=== PATIENT | female | born 1980 | race Caucasian/White ===

== ENCOUNTER 2023-03-13 14:04 | Outpatient (CLI) | payer BC, SELFPAY | END 2023-03-13 14:05 | disposition home or self-care (01) | PROVIDERS: PCP Family Medicine; Visit Provider Physician Assistant | DX: Z01.419 Encounter for gynecological examination (general) (routine) without abnormal findings (principal); R53.83 Other fatigue; Z13.6 Encounter for screening for cardiovascular disorders; Z13.1 Encounter for screening for diabetes mellitus; Z13.29 Encounter for screening for other suspected endocrine disorder | CPT/HCPCS: 80061; 82947; 84443 ==

== ENCOUNTER 2023-07-05 10:37 | Outpatient (CLI) | payer BC, SELFPAY ==
--- NOTE | 2023-07-05 10:45 | CRLHL7_ITS ---
For Patients: As a result of the Century Cures Act, medical imaging exams and procedure reports are released immediately into your electronic medical record. You may view this report before your referring provider. If you have questions, please contact your health care provider. BILATERAL DIGITAL SCREENING MAMMOGRAM WITH TOMOSYNTHESIS AND COMPUTER-AIDED DETECTION, 07/05/2023 INDICATION: 43-year-old asymptomatic female. Screening mammogram. No personal or family history of breast cancer or biopsies documented. TECHNIQUE: BILATERAL mammograms. CC and MLO views were obtained. This digital study was evaluated with assistance of computer-aided detection. Digital breast tomosynthesis utilized in interpretation. Comparison September 20, 2021. FINDINGS: The breasts are heterogeneously dense, which may obscure small masses. Within the inferior RIGHT breast between the 6 and 7 o???clock position 6.5 cm from the nipple is a cluster of microcalcifications potentially associated with a small soft tissue density. Spot compression magnification views are recommended in the CC and true ML projection as a 1st step. Ultrasound may be helpful. Benign punctate calcification LEFT breast is unchanged. IMPRESSION: 1. Nothing for malignancy on the LEFT. No change on the LEFT. 2. Cluster of microcalcifications potentially associated with a small density inferior RIGHT breast at approximately the 7 o???clock position 6.5 cm from the nipple for which additional imaging and possible ultrasound are recommended. A lay language report of this examination will be provided to the patient. BI-RADS Category 0: Incomplete: Need Additional Imaging Evaluation and/or Prior Mammograms for Comparison Dictated by: Wiliam Espana MD @07/06/2023 10:13:25 AM JR/Dictated by: Wiliam Espana MD @ 07/06/2023 10:13:00 AM (Electronically Signed)
== END 2023-07-05 10:38 | disposition home or self-care (01) ==
LOC: MAMMO 10:38
PROVIDERS: PCP Family Medicine; Visit Provider Physician Assistant
DX: Z12.31 Encounter for screening mammogram for malignant neoplasm of breast (principal); R92.0 Mammographic microcalcification found on diagnostic imaging of breast
CPT/HCPCS: 77063; 77067

== ENCOUNTER 2023-07-18 09:36 | Outpatient (CLI) | payer BC, SELFPAY ==
--- NOTE | 2023-07-18 09:45 | CRLHL7_ITS ---
For Patients: As a result of the Century Cures Act, medical imaging exams and procedure reports are released immediately into your electronic medical record. You may view this report before your referring provider. If you have questions, please contact your health care provider. RIGHT DIAGNOSTIC DIGITAL MAMMOGRAM WITH COMPUTER-AIDED DETECTION, 07/18/2023 CLINICAL HISTORY: RIGHT breast calcifications. COMPARISON: 07/05/2023, 09/20/2021 TECHNIQUE: Digital RIGHT mammogram in three projections with computer-aided detection. BREAST COMPOSITION: The breast is heterogeneously dense, which may obscure small masses. FINDINGS: Spot magnification CC/ML RIGHT breast mammogram submitted along with an open ML view of the RIGHT breast. Clustered punctate microcalcifications are present within the lower outer quadrant, 7 o`clock, 6 cm from the nipple. These may represent calcifications associated with a degenerating fibroadenoma, although they are indeterminate. No layering is present. IMPRESSION: Clustered microcalcifications in the RIGHT breast at 7 o`clock, 6 cm from the nipple. RECOMMENDATIONS: Stereotactic biopsy. Results and recommendations were discussed with the patient. A lay language report of this examination will be provided to the patient. BI-RADS Category 4. Suspicious. Dictated by Mike Frias MD @ 07/18/2023 11:10:03 AM [email or web address] RD/Dictated by: Mike Frias MD @ 07/18/2023 11:10:00 AM (Electronically Signed)
== END 2023-07-18 09:37 | disposition home or self-care (01) ==
LOC: MAMMO 09:36
PROVIDERS: PCP Family Medicine; Visit Provider Family Medicine
DX: R92.8 Other abnormal and inconclusive findings on diagnostic imaging of breast (principal); R92.0 Mammographic microcalcification found on diagnostic imaging of breast
CPT/HCPCS: 77065

== ENCOUNTER 2023-09-14 09:51 | Day surgery (SDC) | payer BC, SELFPAY ==
[2023-09-14 10:12] VITALS: BMI 25.2
[2023-09-14 10:13] LABS: Ur HCG Qualitative* Negative (Negative)
[2023-09-14 10:16] VITALS: BP 115/64; PULSE 77; RESP 16; TEMP 36.7; O2SAT 100
[2023-09-14] MEDS: LACTATED RINGERS 1000 ML 1,000 ML 100 ML IV (10:25)
[2023-09-14] MEDS: SODIUM CHLORIDE 0.9 % (FLUSH) 10 ML SYRINGE IVF (10:26)
--- NOTE | 2023-09-14 10:54 | W.PM.H&PU ---
History & Physical Update History & Physical Update H&P Reviewed and patient assessed: No changes noted
--- NOTE | 2023-09-14 10:55 | P.GSOP_ITS ---
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 Core biopsy showed this to be atypical ductal hyperplasia as well as atypical lobular hyperplasia. Given the presence of atypical ductal hyperplasia and risk of ma lignancy, excisional biopsy was recommended. After discussion, she agreed to proceed. Procedure Description: After discussing the risks and benefits of the procedure, the patient signed informed consent.? The operative site was marked and the patient was brought to the operating room and placed on the operating table in supine position.? Care was taken to pad the patient's pressure points.?? The patient was then given today by anesthesia.?? The operative site was then prepped and draped in the usual sterile fashion.? A time-out was then performed. Local anesthetic was injected into the skin and subcutaneous tissue in the lower right breast. A periareolar skin incision was created at the inferior aspect. A subcutaneous plane was then created using cautery until the localizing wire was encountered. This was grasped with an Allis clamp and pulled into the incision. I then carefully dissected the breast tissue around the wire using cautery. Once this was done, this was inked for margins. It was then sent to mammography. This confirmed the mass and the clip were present in the specimen. This was then sent to pathology for permanent section. The wound was examined. Hemostasis appeared excellent. The wound was then closed with 3-0 Vicryl dermal and 4-0 Monocryl running subcuticular suture. Sterile dressings were then applied. ? The patient was then woken and transported to the recovery area in stable condition. ? The patient tolerated the procedure well. Findings: Right breast mass excised with clip noted in the specimen Anesthesia: MAC Surgeon: Milli Conde MD Estimated blood loss (mL): 5 Additional Specimen Information: Right breast mass excisional biopsy Condition: stable Disposition: same day
--- NOTE | 2023-09-14 11:15 | CRLHL7_ITS ---
For Patients: As a result of the Cures Act, medical imaging exams and procedure reports are released immediately into your electronic medical record. You may view this report before your referring provider. If you have questions, please contact your health care provider. BREAST WIRE LOCALIZATION USING ULTRASOUND GUIDANCE CLINICAL HISTORY: Benign mammary dysplasia LATERALITY: Right breast LESION: Biopsied microcalcifications right breast, 6 o`clock 6 cm from the nipple. LOCALIZATION WIRE: [place] hookwire. TECHNIQUE: The localization wire was placed using real-time ultrasound guidance with image documentation. Cranial-caudal and medial-lateral digital mammograms were obtained after localization wire placement. CONSENT and TIME OUT: The procedure, risks, and alternatives were explained to the patient and a consent was signed. [place] Protocol was followed including pre-procedure verification that relevant information/documentation was available, reviewed and properly matched to the patient; consent accurate and complete; and equipment and supplies available. Time Out was conducted just prior to starting procedure to verify the four required elements: patient identity, correct side/site marked (if applicable), procedure, relevant images/results properly labeled and displayed (if applicable). PROCEDURE: The skin was prepped with ChloraPrep and 8 cc of 1% lidocaine was injected for local anesthesia. The localization wire was placed within or near the targeted breast lesion using ultrasound guidance. The patient tolerated the procedure well. PROXIMITY OF WIRE TO LESION: Wire is located immediately adjacent to the clip. IMPRESSION: Successful breast wire localization. ACR not applicable Dictated by Mike Frias MD @ 09/14/2023 12:29:31 PM (Electronically Signed)
--- NOTE | 2023-09-14 12:00 | CRLHL7_ITS ---
For Patients: As a result of the Century Cures Act, medical imaging exams and procedure reports are released immediately into your electronic medical record. You may view this report before your referring provider. If you have questions, please contact your health care provider. CLINICAL HISTORY: Right lumpectomy COMPARISON: 08/01/2023 FINDINGS: Two views of the right breast specimen submitted. Biopsy clip noted along with residual calcifications and localization wire. IMPRESSION: Specimen contains the residual calcifications, localization wire and biopsy clip. ACR not applicable. Dictated by Mike Frias MD @ 09/14/2023 1:08:05 PM (Electronically Signed)
[2023-09-14] MEDS: CEFAZOLIN 1 GM inj IVP (12:16)
[2023-09-14] MEDS: LIDOCAINE 1% MDV 20 ML INJECTION (12:53)
[2023-09-14] MEDS: BUPIVACAINE 0.25% 30 ML INJECTION (12:53)
--- NOTE | 2023-09-14 13:08 | W.ANESCHARGE ---
Anesthesia Charges Start Date/Time Anesthesia Start Date: 09/14/23 Anesthesia Start Time: 12:03 Stop Date/Time Anesthesia Stop Date: 09/14/23 Anesthesia Stop Time: 13:09
[2023-09-14 13:10] VITALS: BP 97/61; PULSE 63; RESP 16; TEMP 36.3; O2SAT 97
[2023-09-14 13:25] VITALS: BP 94/61; PULSE 58; RESP 16; O2SAT 100
[2023-09-14 13:40] VITALS: BP 102/67; PULSE 64; RESP 16; O2SAT 100
== END 2023-09-14 14:01 | disposition home or self-care (01) ==
PROVIDERS: PCP Family Medicine; Visit Provider Surgery
PROC: (CPT 19125; principal; 2023-09-14 12:00)
DX: N60.91 Unspecified benign mammary dysplasia of right breast (principal); D05.81 Other specified type of carcinoma in situ of right breast
CPT/HCPCS: 19125; 00400; 19285; 77065; 81025; C1769; J0665; J0690; J1100; J1200; J1885; J2405; J2704; J3010; J7120

== ENCOUNTER 2023-10-10 08:48 | Outpatient (CLI) | payer BC, SELFPAY ==
--- OUTSIDE RECORDS SUMMARY | 2023-10-10 08:52 | XMS_ITS | Encounter Summary ---
Author Name Unknown Organization [facility] Address [address] [place] [address] Care Team Providers Care Rn Burn Name Role Phone Unavailable Primary Care Provider Unavailabl e Reason for Visit * Appointment Request (Routine) - Closed Specialty Diagnoses / Procedures Referred By Anton cesar Referred To Contact Radiation Oncology Diagnoses Cancer Breast Ductal In Situ Right Milli Conde M.D. [address] [place] [address] Referral ID Status Reason Start Date Expiration Date Visits Re quested Visits Authorized [id number] Closed 09/19/2023 09/18/2024 1 1 Encounter Details Date Type Department Care Team (Latest Contact Info) Description 09/27/2023 9:43 AM [facility] - 09/27/2023 12:34 PM [facility] Hospital Encounter Department of Radiation Oncology in [place], [place] [address] [place] [address] Radha Elena M.D. [address] [place] [address] 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) Social History Tobacco Use Types Packs/Day Years Used Date Smoking Tobacco: Never Smokeless Tobacco: Never Tobacco Cessation:Counseling Given: Not Answered Alcohol Use Standard Drinks/Week Comments Not Currently 0 (1 standard drink = 0.6 oz pur e alcohol) Nutrition Answer Date Recorded Nutrition: EVOO Fat Source Unknown 11/17 Nutrition: Servings of Fruits/Vegetables per Day Not on file 11/17/2020 Dental Answer Date Recorded Dental: Regular Dentist Unknown 11/18/19 21 Sex and Gender Information Value Date Recorded Sex Assigned at Not on file Gender Identity Not on file Sexual Orientation Not on file documented as of this encounter Last Filed Vital Signs Vital Sign Reading Time Taken Comments Blood Pressure 124/65 09/27/2023 9:53 AM [facility] Pulse 81 09/27/2023 9:53 AM [facility] Temperature 36.9 ??C (98.4 ??F) 09/27/2023 9:53 AM CS T Respiratory Rate - - Oxygen Saturation - - Inhaled Oxygen Concentration - - Weight 72.6 kg (160 lb 0.9 oz) 09/27/2023 9:53 A M [facility] Height - - Body Mass Index - - documented in this encounter Discharge Instructions * Patient Instructions* Evi Mott P.A.-C., M.S. - 09/27/2023 10:00 AM [facility] 52 [facility] documented in this encounter Consult Notes * Evi Mott P.A.-C., M.S. - 09/27/2023 10:00 AM CST SUBJECTIVE REQUESTING PROVIDER Milli Conde M.D. CHIEF COMPLAINT/REASON FOR CONSULT 1. Cancer Breast Ductal In Situ Right SUPERVISED BY: Radha Elena M.D. HISTORY OF PRESENT ILLNESS Ms. 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 Her oncologic history is as follows: Oncology History Cancer Breast Ductal In Situ Right 07/05/2023 Critical Imaging Screening mammogram demonstrated a cluster of microcalcifications with a small density in the inferior right breast at approximately 7 o'clock, 6.5 cm from the nipple, recommended additional imaging.No concerning findings in the left breast. 07/18/2023 Critical Imaging Focused right breast diagnostic mammogram redemonstrated clustered microcalcifications in the rightbreast at 7 o'clock, 6 cm from the nipple. 08/01/2023 Biopsy/Pathology Final Diagnosis A) RIGHT BREAST, 7:00, 6 CM FROM NIPPLE, STEREOTACTIC-GUIDED CORE BIOPSY: 1. Focal atypical ductal hyperplasia (ADH) recommend excision (see comment) 2. Atypical lobular hyperplasia (ALH) 3. Calcifications present in fibrocystic change 4. Negative for invasive malignancy 08/01/2023 Critical Imaging Targeted ultrasound was performed of the LEFT breast at 3 o'clock, 3 cm from the nipple. There was an underlying simple cyst measuring 0.9 x 0.4 x 0.7 cm. This correlated to the mammogram and is benign. 09/14/2023 Surgery and Procedures Right breast excisional biopsy performed by Dr. Milli Conde. A) RIGHT BREAST, ORIENTED PARTIAL MASTECTOMY WITH MARGIN ASSESSMENT: 1. Ductal carcinoma in situ (DCIS), nuclear grade 1, cribriform and micropapillary types a. Size: at least 3 mm b. Margins: All margins negative for DCIS, < 1 mm to inferior (nearest) margin, all other margins > 5 mm c. Core biopsy site associated with DCIS 2. Background breast tissue with atypical lobular hyperplasia (ALH) and fibrocystic changes 3. Negative for invasive carcinoma 4. See comment and synoptic report for additional details 5. Breast Ancillary Testing: Performed on A6 a. Estrogen receptor: Positive (91-100%, strong staining by manual morphometry) SYNOPTIC REPORTING SPECIMEN Procedure: Excision (less than total mastectomy) Specimen Laterality: Right TUMOR Tumor Site: Clock position : 7 o'clock Tumor Site: Distance from nipple (Centimeters): 6 cm Histologic Type: Ductal carcinoma in situ Size (Extent) of DCIS: Estimated size (extent) of DCIS is at least (Millimeters): 3 mm Architectural Patterns: Cribriform Architectural Patterns: Micropapillary Nuclear Grade: Grade I (low) Necrosis: Not identified Microcalcifications: Present in DCIS MARGINS Margin Status: All margins negative for DCIS Distance from DCIS to Closest Margin: Less than: 1 mm Closest Margin(s) to DCIS: Inferior REGIONAL LYMPH NODES Regional Lymph Node Status: Not applicable (no regional lymph nodes submitted or found) PATHOLOGIC STAGE CLASSIFICATION (pTNM, AJCC 8th Edition) pT Category: pTis (DCIS) pN Category: pN not assigned (no nodes submitted or found) Test(s) Performed: Estrogen Receptor (ER) Status: Positive (greater than 10% of cells demonstrate nuclear positivity) Percentage of Cells with Nuclear Positivity: 91-100% Average Intensity of Staining: Strong 09/19/2023 Other Follow up with Dr. Conde to review path results. Dr. Conde discussed additional surgery for a widermargin of at least 2 mm, inferior margin was <1 mm, but not absolutely necessary if patient wanted to proceed with radiation treatment. Patient was interested in hearing more about radiation, referral sent. Dr. Conde also discussed obtaining a breast MRI as patient has strong family history of breast cancer in mom and maternal grandmother, has dense breasts, and is young so want to rule out additional lesions. Radiology recommended waiting 4 weeks post surgery. Plan to complete this prior to radiationtreatment. 10/02/2023 Other Scheduled to meet with Dr. Harry in Medical Oncology. 10/12/2023 Critical Imaging Tentative MRI breast scheduled. INTERVAL HISTORY: The patient was seen and examined today with Dr. Elena. The patient reports doing well overall. She reports stable energy compared to pre-surgery. She reports occasional zingers but denies pain or swelling. She denies any skin incisional healing concerns. She denies shortness of breath or cough. The patient denies a history of prior radiation therapy,connective tissue disorders, or inflammatory bowel disease. Her ECOG performance status is 0. REVIEW OF SYSTEMS Review of systems was negative except as documented above. PATIENT REPORTED SYMPTOM SCREEN: FATIGUE (Scale: 0 = no fatigue; 10 = worst fatigue you can imagine): 0 PAIN (Scale: 0 = no pain; 10 = worst pain you can imagine): 0 OVERALL QUALITY OF LIFE (Scale: 0 = as bad as can be; 10 = as good as can be): 10 MEDICAL HISTORY Past Medical History: Diagnosis Date Atypical Lobular Hyperplasia Breast Cancer Breast Ductal In Situ Right Cancer Breast Family History SURGICAL HISTORY Past Surgical History: Procedure Laterality Date BREAST EXCISIONAL BIOPSY Right 09/14/2023 FAMILY HISTORY Family History Problem Relation Age of Onset Breast cancer Mother 69 Lymphoma Father 70 Breast cancer Maternal Grandmother 52 Prostate cancer Paternal Grandfather Patient is unsure about this. Breast cancer Aunt Aunt was adopted. 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 OBJECTIVE BP 124/65 (BP Location: Right arm, Patient Position: Sitting, Cuff Size: Regular) Pulse 81 Temp36.9 ??C (Temporal) Wt 72.6 kg PHYSICAL EXAMINATION General: Alert and oriented, in no apparent distress. The patient is here today with her , Bronson. Heart: Regular rate and rhythm. Lungs: Clear to auscultation bilaterally. ASSESSMENT / PLAN #1 Stage 0 (pTis (DCIS), cN0, cM0, G1, ER+) ductal carcinoma in situ of the right breast s/p right breast excisional biopsy on September 14, 2023 with a close (<1 mm) inferior margin I had a discussion with the patient and her regarding her diagnosis of ductal carcinoma in situ of the right breast including information regarding her staging, grade, and hormone receptors. We reviewed her oncologic history as detailed above. Dr. Conde has offered re-excision for additional margin as a treatment option for the patient and has recommended proceeding with a breast MRI for further evaluation, which is scheduled later this month. We also had a detailed discussion regarding the risks, benefits, and alternatives of radiotherapy in this setting. Dr. Elena offered radiation therapy to the right breast in 5 or 15 fractions. We discussed the possible addition of a 4 fraction boost to the lumpectomy cavity for a total of 9 or 19 f ractions, especially if she decides to not proceed with re-excision. I discussed the logistics as well as the acute and chronic side effects of radiotherapy. The acute side effects are common and include, but are not limited to, fatigue, radiation dermatitis, breast swelling and discomfort. Long-term side effects include, but are not limited to, skin changes and texture changes of the breast, possible breast asymmetry, pulmonary scarring, radiation pneumonitis, increased risk of rib fracture with significant trauma, and a very small risk of secondary malignancy.The use of mometasone cream and a moisturizing lotion applied to the skin within the treatment field during treatment was discussed. The patient was provided with a written summary of recommendations. Her questions were answered to her verbalized satisfaction. The patient is scheduled for a Medical Oncology consultation with Dr. Harry on October 02, 2023 and a breast MRI scan on October 12, 2023. Dr. Elena also met with the patient today, please see her attestation for details. After their discussion, it was agreed that the patient would contact us after her upcoming appointment to let us know her decision on proceeding with re-excision or radiation therapy at this time. The patient was provided with our contact information. She will contact us with questions or concerns. She verbally expressed her understanding of the plan. EDUCATION: Ready to learn, no apparent learning barriers were identified; learning preferences include listening. Explained diagnosis and treatment plan; patient expressed understanding of the content. PRIMARY PROVIDER Stacey Marcelo P.A.-C. I personally spent 52 minutes in care of the patient today. Time includes both non face to face andface to face patient care. Signed by: Evi Mott P.A.-C., M.S. 09/27/2023 11:40 AM [facility] [address] [place] [address] [facility] Associated attestation - Radha Elena M.D. - 09/27/2023 12:05 PM [facility] RADIATION ONCOLOGY CONSULT I saw and evaluated the patient and participated in the royal portions of the service. I reviewed thedocumentation of Ms. Evi Mott PA-C, and agree with the findings and plan. Please see Ms. Mott's detailed note for the patient's initial presentation and work-up. Briefly, Ms. Ian Cantu is a very pleasant 43 year old female with a resected right breast DCIS who presents now to discuss adjuvant radiation therapy options. I have reviewed her imaging, operative and pathology reports. In summary, she underwent an excision of a grade 1 DCIS that was 3mm in size with her inferior margin < 1mm. Her tumor was ER positive. She does have an MRI scheduled for 10/12/[address] Harry on 10/02/23. She presents now to learn about radiation therapy. On exam, she appears well. I did not perform a breast/lymph node exam at this visit, but will the next time that I see her. We discussed the findings above and below in this note with the patient and her . We discussed her treatment alternatives including more surgery to obtain a wider margin vs adjuvant radiation now for her negative, but less than 1 mm margin. She does not want mastectomy. One could consider ultra- hypofractionated (5 treatments) radiation therapy, but given her young age, I would lean towardsconventionally hypofractionated treatments (15 fractions). If she has no additional surgery, then Iwould favor a boost. She may still need a boost following surgery, but this would be determined later. She does have an upcoming MRI and will return to see Dr. Conde before making final decisions. We discussed calling me back next week after she sees Dr. Harry and possibly setting up a simulation on October 22 or . She will be away October 15 through October 19. We discussed the rationale, risks, side effects and goals of radiation therapy. We discussed the rationale, risks, side effects and adjuvant goals of radiation therapy. We discussed the acute as wellas intermediate manager risks, including, but not limited to fatigue, skin erythema/desquamation, fibrosis of the breast, small risks of bone fracture, radiation pneumonitis, cardiac disease, and secondary malignancies. My thanks to Piero Hewitt, and Stacey Marcelo PA-C for the opportunity to participate in this patient's care. EDUCATION Ready to learn, no apparent learning barriers were identified; learning preferences include listening. Explained diagnosis and treatment plan; patient expressed understanding of the content. CONSENT Discussed the risks, benefits, alternatives, and the necessity of other members of the healthcare team participating in the procedure. All questions answered and consent given. DIAGNOSIS #1 Stage 0 (pTis (DCIS), cN0, cM0, G1, ER+) ductal carcinoma in situ of the right breast s/p right breast excisional biopsy on September 14, 2023 with a close (<1 mm) inferior margin Signed by: Radha Elena M.D. 09/27/23 documented in this encounter Plan of Treatment Upcoming Encounters Date Type Department Care Team (Late st Contact Info) Description 10/22/2023 9:00 AM [facility] Appointment Department of Radiation Oncology in [place], [place] [address] [place] [address] Radha Elena M.D. [address] [place] [address] 10/22/2023 9:30 AM [facility] Appointment Department of Radiation Oncology in [place], [place] [address] [place] [address] Radha Elena M.D. [address] [place] [address] documented as of this encounter Visit Diagnoses Diagnosis Cancer Breast Ductal In Situ Right- Primary documented in this encounter
--- OUTSIDE RECORDS SUMMARY | 2023-10-10 08:52 | XMS_ITS | Referral Summary ---
Author Name Unknown Organization [facility] Address [address] [place] [address] Care Team Providers Care Project Engineer Name Role Phone Unavailable Primary Care Provider Unavailabl e Source Comments Patient records contain information from all sites at [facility]. For routine questions regarding patient records, call [phone] during business hours, M-F 8:00 AM - 5:00 PM Central Time. Record requests for emergency care only can be directed to [phone] at any time.[facility] Encounters Date Type Department Care Team Description 10/05/2023 Orders Only Department of Radiation Oncology in [address] [address] Radha Elena M.D. 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 Cancer Staging:Pathologic stage from 09/14/2023:Stage 0(pTis (DCIS), cN0, cM0, G1, ER+, [place]: Unknown, HER2: Unknown) - Unsigned Immunizations Name Administration Dates Next Due DTaP ([employer], [employer]) 04/10/2009 Social History Tobacco Use Types Packs/Day Years [...] on file Sexual Orientation Not on file Last Filed Vital Signs Vital Sign Reading Time Taken Comments Blood Pressure 124/65 09/27/2023 9:53 AM [facility] Pulse 81 09/27/2023 9:53 AM [facility] Temperature 36.9 ??C (98.4 ??F) 09/27/2023 9:53 AM CS T Respiratory Rate - - Oxygen Saturation - - Inhaled Oxygen Concentration - - Weight 72.6 kg (160 lb 0.9 oz) 09/27/2023 9:53 A M [facility] Height - - Body Mass Index - - Plan of Treatment Upcoming Encounters Date Type Department Care Team (Late st Contact Info) Description 10/22/2023 9:00 AM [facility] Appointment Department of Radiation Oncology in [address] [address] Radha Elena M.D. [address] [place] [address] 10/22/2023 9:30 AM [facility] Appointment Department of Radiation Oncology in [address] [address] Radha Elena M.D. [address] [place] [phone] Procedures Procedure Name Priority Date/Time Associated Diagnosis Comments OUTSIDE MG MAMMOGRAM Routine 09/14/2023 12:55 PM [facility] OUTSIDE MG MAMMOGRAM Routine 09/14/2023 11:15 AM [facility] OUTSIDE US BREAST Routine 09/14/2023 10: 35 AM [facility] OUTSIDE US BREAST Routine 08/01/2023 5:0 0 PM [facility] OUTSIDE MG MAMMOGRAM Routine 08/01/2023 3:10 PM [facility] OUTSIDE MG MAMMOGRAM Routine 08/01/2023 2:20 PM [facility]TER OUTSIDE MG MAMMOGRAM Routine 07/18/2023 9:50 AM CDT from Last 3 Months Results * MM surgical specimen RT-Outside Mammogram (09/14/2023 12:55 PM [facility]TER) Only the most recent of5 resultswithin the time period is included. Narrative [facility] - 09/19/2023 2:27 PM [facility] This order has been created and auto-finalized to support the import of outside images. If available, original interpretation can be found on the Media Tab in Chart Review, in Document Viewer, or as an image in QREADS. If a re-interpretation or overread is required please follow defined workflow. ?? Provider Not In System IMG BI PROCEDURES Performing Organization Address [facility] Co de Phone Number [facility] NA * US BREAST NEEDLE LOC RT-Outside US Breast (09/14/2023 10:35 AM [facility]TER) Only the most recent of2 resultswithin the time period is included. Narrative [facility] - 09/19/2023 2:27 PM [facility]TER This order has been created and auto-finalized to support the import of outside images. If available, original interpretation can be found on the Media Tab in Chart Review, in Document Viewer, or as an image in QREADS. If a re-interpretation or overread is required please follow defined workflow. ?? Provider Not In System IMG BI PROCEDURES Performing Organization Address [facility] Co de Phone Number [facility] NA from Last 3 Months
--- OUTSIDE RECORDS SUMMARY | 2023-10-10 08:52 | XMS_ITS | Clinical Summary ---
Author Name Unknown Organization [facility] Address [place], [place] [address] Care Team Providers Care Headrig Sawyer Name Role Phone Pcp, No Primary Care Provider Unavailabl e Allergies No known active allergies Medications No known medications Active Problems No known active problems Encounters Date Type Department Care Team Description 10/09/2023 11:10 AM SEROLOGY TECHNICIAN Orders Only [address] [phone] Lab, [facility] 10/09/2023 Orders Only [facility] [address] [place] [id number] Marya Solomon MS, CGC <No scans attached> 10/09/2023 Travel 10/03/2023 11:00 AM SEROLOGY TECHNICIAN Phone Office Visit [facility] [address] [place] [id number] Marya Solomon, MS, CGC Counseling (Cancer genetic counseling) 10/03/2023 Orders Only [facility] [address], [place] [address] Marya Solomon, MS, CGC Counseling (Cancer genetics test order) 10/03/2023 Travel 09/14/2023 Lab Requisition [facility] [phone] Milli Conde MD 09/14/2023 Lab Requisition [facility] [phone] Milli Conde MD 09/07/2023 Transcribe Orders [facility] [address], [place] [address] Jyoti Yusuf MD 08/01/2023 1:43 PM SEROLOGY TECHNICIAN - 08/01/2023 11:59 PM SEROLOGY TECHNICIAN Hospital Encounter [facility] [address] [place] [address] Stacey Marcelo PA-C Abnormal finding on breast imaging; Mammographic microcalcification 08/01/2023 Travel 07/20/2023 Telephone [facility] [address] [place] [address] Staff, Other Clinical from Last 3 Months Social History Tobacco Use Types Packs/Day Years Used Date Smoking Tobacco: Never Assessed Sex and Gender Information Value Date Recorded Sex Assigned at Not on file Gender Identity Not on file Sexual Orientation Not on file Obstetrics History Last Filed Vital Signs Vital Sign Reading Time Taken Comments Blood Pressure 110/64 11/20/2015 1:10 PM SEROLOGY TECHNICIAN Pulse 60 11/20/2015 1:10 PM SEROLOGY TECHNICIAN Temperature 36.9 ??C (98.4 ??F) 11/20/2015 1:10 PM CS T Respiratory Rate - - Oxygen Saturation - - Inhaled Oxygen Concentration - - Weight 85.3 kg (188 lb) 11/20/2015 1:10 PM SEROLOGY TECHNICIAN Height - - Body Mass Index - - Plan of Treatment Health Maintenance Due Date Last Done Comments COVID-19 vaccine series (#1) 1981 Tdap 1992 Depression screening for age 12+ 1993 HIV for age 15-65 1996 BMI (ht and wt on same day) for age 18+ 1999 Hepatitis C screening for age 18-79 1999 Tetanus booster 2001 Influenza for age 9-49 05/18/2023 Pap test for age 21-65 03/13/2026 3, 03/13/2023, 04/05/2016, Additional history exists Pneumococcal series for age 6-64 Aged Out No longer eligible based on patient's age to complete this topic Procedures Procedure Name Priority Date/Time Associated Diagnosis Comments LAB TRACKING EVENT Routine 09/14/2023 12 :44 PM SEROLOGY TECHNICIAN PATH TISSUE EXAM Routine 09/14/2023 12:4 4 PM SEROLOGY TECHNICIAN XR MAMMO POST CLIP PLCMT RT [facility] 08/01/2023 2:42 PM SEROLOGY TECHNICIAN Mammographic microcalcification XR BIOPSY BREAST NEEDLE W HANK W STEREO GUIDE RT [facility] 08/01/2023 2:40 PM SEROLOGY TECHNICIAN Mammographic microcalcification US BREAST UNILATERAL LEFT LIMITED [facility] 08/01/2023 2:27 PM SEROLOGY TECHNICIAN Abnormal finding on breast imaging PATH TISSUE EXAM Today 08/01/2023 2:05 PM SEROLOGY TECHNICIAN from Last 3 Months Results * LAB TRACKING EVENT (09/14/2023 12:44 PM SEROLOGY TECHNICIAN) Other (Other) Client Collect / Unknown 09/14/2023 12:44 PM SEROLOGY TECHNICIAN 09/14/2023 6:07 PM SEROLOGY TECHNICIAN Milli Conde MD LAB BILL ONLY [facility] [address] [place] [address], * PATH TISSUE EXAM (09/14/2023 12:44 PM SEROLOGY TECHNICIAN) Only the most recent of2 resultswithin the time period is included. Case Report Pathology Report ?Case: [id number] ? Authorizing Provider: ??Milli Conde MD ??Collected: ? 09/14/2023 1244 ? Ordering Location: ? [facility] ?Received: ?09/14/2023 1835 ? Pathologist: ? Oleksandr Obrien MD ? Specimen: ?Right Breast ? 09/19/2023 11:24 AM [facility] [employer]- ENTRAL LABORATORY Amendment 09/19/2023 - Amendment issued to incorporate ancillary studies. 09/19/2023 11:24 AM [facility] [employer] [facility]- ENTRMA LABORATORY Final Diagnosis A) RIGHT BREAST, ORIENTED PARTIAL MASTECTOMY WITH MARGIN ASSESSMENT: 1. Ductal carcinoma in situ (DCIS), nuclear grade 1, cribriform and micropapillary types ?a. Size: at least 3 mm ?b. Margins: All margins negative for DCIS, < 1 mm to inferior (nearest) margin, all other margins > 5 mm ?c. Core biopsy site associated with DCIS 2. Background breast tissue with atypical lobular hyperplasia (ALH) and fibrocystic changes 3. Negative for invasive carcinoma 4. See comment and synoptic report for additional details 5. Breast Ancillary Testing: Performed on A6 ?a. Estrogen receptor: Positive (91-100%, strong staining by manual morphometry) 09/19/2023 11:24 AM [facility] [employer] [facility]- ENTRAL LABORATORY Amendment electronically signed by Tiffanie Sterling MD on 09/19/2023 at 11:[address] Estelle Todd has reviewed passenger service representative slides (A5/A6/A8) and concurs with DCIS. 09/19/2023 11:24 AM [facility] [facility] ENTRAL LABORATORY Clinical Information Patient with recent prior right breast core biopsy showing both atypical ductal hyperplasia (ADH) and atypical lobular hyperplasia (ALH). 09/19/2023 11:24 AM [facility] [employer] [facility] ENTRAL LABORATORY Gross Description A) Received in formalin, unsliced, labeled with the patient's name and right breast biopsy, is a 9 gram,??4.0 (SI) x 2.7 (ML) x centimeters 1.6 (AP)??cm wirelocalized breast lumpectomy specimen.??The wire is identified within the specimen.?The specimen is inked by the surgical staff in the OR as follows: Anterior--[place] Posterior--Black Superior--Blue Inferior--Red Medial--Green Lateral--Yellow The specimen is serially sectioned from superior to inferior into 12 submitted passenger service representative slices revealing a??1.3 (ML) x 1.4 (SI) x 0.5 (AP)??cm focally hemorrhagic, fibrotic lesion within slice(s) 5-8 with the following characteristics: Biopsy site change: Present in slices 4-7 Biopsy clip: Is not grossly identified, however gel is present Closest margin: Anterior and inferior Distance to margins: Anterior: Grossly abuts Posterior: 0.5 cm Inferior: Grossly abuts Superior: 2.0 cm Medial: 0.7 cm Lateral: 0.6 cm The remaining cut surfaces consist of approximately 70% adipose tissue and 30% fibrous tissue. No other lesions are identified. The specimen is submitted entirely 1. ??Slice 1 (perpendicular sections of superior margin) 2. ??Slice 2 3. ??Slice 3 4. ??Slice 4 5. ??Slice 5 6. ??Slice 6 7. ??Slice 7 8. ??Slice 8 9. ??Slice 9 (perpendicular sections of inferior margin) A specimen image has been uploaded. The specimen was removed from the patient at 1244 and placed unsliced in 10% neutral buffered formalin at 1257 on 09/14/2023. The specimen sat in formalin unsliced for 7 hours. (Please note: Cold ischemic time is greater than 60 minutes).?? The sliced specimen was fixed in formalin for a minimum of 6 hours and not longer than 72 hours. ?? [facility] 09/14/2023 ? 09/19/2023 11:24 AM [facility] ENTRAL LABORATORY Microscopic Description The final diagnosis is based on microscopic examination of appropriate sections of all specimens. A) The cold ischemic time in this case is greater than 60 minutes, which could potentially affect ancillary testing results. Breast ancillary testing performed on this case showed the tumor to be strongly ER positive with internal controls staining appropriately; thus there appears to be no definitive impact of the extended cold ischemic time on the patient's results. 09/19/2023 11:24 AM [facility] ENTRAL LABORATORY SYNOPTIC REPORTING DCIS OF THE BREAST: Resection DCIS OF THE BREAST: RESECTION - All Specimens 8th Edition - Protocol posted: 12/07/2021 SPECIMEN ?? Procedure: ?Excision (less than total mastectomy) ?? Specimen Laterality: ?Right TUMOR ?? Tumor Site: ?Clock position ?? : ?7 o'clock Tumor Site: ?Distance from nipple (Centimeters): 6 cm Histologic Type: ?Ductal carcinoma in situ Size (Extent) of DCIS: ?Estimated size (extent) of DCIS is at least (Millimeters): 3 mm Architectural Patterns: ?Cribriform Architectural Patterns: ?Micropapillary Nuclear Grade: ?Grade I (low) Necrosis: ?Not identified Microcalcificatio ns: ?Present in DCIS MARGINS Margin Status: ?All margins negative for DCIS ?? Distance from DCIS to Closest Margin: ?Less than: 1 mm ?? Closest Margin(s) to DCIS: ?Inferior REGIONAL LYMPH NODES Regional Lymph Node Status: ?Not applicable (no regional lymph nodes submitted or found) PATHOLOGIC STAGE CLASSIFICATION (pTNM, AJCC 8th Edition) ?? Reporting of pT, pN, and (when applicable) pM categories is based on information available to the pathologist at the time the report is issued. As per the AJCC (Chapter 1, 8th Ed.) it is the managing physician? s responsibility to establish the final pathologic stage based upon all pertinent information, including but potentially not limited to this pathology report. pT Category: ?pTis (DCIS) pN Category: ?pN not assigned (no nodes submitted or found) Comment(s): ?Block for potential future ancillary testing: A6 Breast Biomarker Reporting Template BREAST: BIOMARKER REPORTING TEMPLATE - A Protocol posted: 12/06/2022 ?? Test(s) Performed: ? Estrogen Receptor (ER) Status: ?Positive (greater than 10% of cells demonstrate nuclear positivity) ? Percentage of Cells with Nuclear Positivity: ?91-100% ? Average Intensity of Staining: ?Strong ? Test Type: ?Laboratory-deve loped test ? Primary Antibody: ?SP1 ? Scoring System: ?Feliberto ? Proportion Score: ?5 ? Intensity Score: ?3 ? Total Feliberto Score: ?8 ?? Cold Ischemia and Fixation Times: ?Do not meet requirements specified in latest version of the ASCO / CAP Guidelines ?? Cold Ischemia Time (minutes): ?420 min ?? Testing Performed on Block Number(s): ?A6 METHODS ?? Fixative: ?Formalin ?? Image Analysis: ?Not performed ?? Comment(s): ?ER analysis was performed by manual morphometry for the Feliberto Scoring System 09/19/2023 11:24 AM SEROLOGY TECHNICIAN [facility] [facility] Additional Information Interpreted at [facility], Central Laboratory - [address], [place] [address] 09/19/2023 11:24 AM SEROLOGY TECHNICIAN [facility] Other (Right Breast) 09/14/2023 12:44 PM SEROLOGY TECHNICIAN 09/14/2023 6:35 PM SEROLOGY TECHNICIAN Milli Conde MD PATHOLOGY/CYTOLO GY [facility]-CENTRAL LABORATORY [address] [place] [address], * XR MAMMO POST CLIP PLCMT RT (08/01/2023 2:42 PM SEROLOGY TECHNICIAN) Anatomical Region Laterality Modality BREASTS N/A Mammography Narrative 08/01/2023 4:33 PM SEROLOGY TECHNICIAN For Patients: As a result of the Cures Act, medical imaging exams and procedure reports are released immediately into your electronic medical record. ??You may view this report before your referring provider. ?? If you have questions, please contact your health care provider. RIGHT POST-BIOPSY MAMMOGRAM CLIP PLACEMENT, 08/01/2023 PLEASE SEE [id number] FOR REPORT OF RIGHT BREAST BIOPSY SAME DAY. ?? Stacey Fozia AWAN MAMMO * XR BIOPSY BREAST NEEDLE W HANK W STEREO GUIDE RT (08/01/2023 2:40 PM SEROLOGY TECHNICIAN) Anatomical Region Laterality Modality Breast Right Right Mammography, Oth er 08/01/2023 3:27 PM SEROLOGY TECHNICIAN Addenda Addendum by Jessica Hager MD on 08/06/2023 9:56 AM SEROLOGY TECHNICIAN For Patients: As a result of the Cures Act, medical imaging exams and procedure reports are released immediately into your electronic medical record. ??You may view this report before your referring provider. ?? If you have questions, please contact your health care provider. ??ADDENDUM ? ADDENDUM ? ADDENDUM Pathologic findings: RIGHT BREAST, 7 O'CLOCK, 6 CM FROM NIPPLE, STEREOTACTIC-GUIDED CORE BIOPSY: 1. Focal atypical ductal hyperplasia (ADH) recommend excision ?? 2. Atypical lobular hyperplasia (ALH) 3. Calcifications present in fibrocystic change 4. Negative for invasive malignancy RadPath Correlation: Imaging reviewed by Dr. Herve Perez and Dr. Lockhart. ?? Pathologic findings are concordant with radiologic findings. Recommendations: Surgical consultation is recommended. ?? Notification: Pathologic findings and recommendations were discussed with Karla, breast nurse navigator for [facility]. ??She will call the patient with the findings and recommendations. Alea Pinto, MSN, RN, PAIN MANAGEMENT SPECIALIST [employer] [email or web address] CB/betty Impressions 08/01/2023 4:33 PM SEROLOGY TECHNICIAN Stereotactic vacuum-assisted breast biopsy. When the pathology report is available, an addendum to this report will be made. ACR not applicable Dictated by: Jessica Hager MD @08/01/2023 3:27:29 PM / CRL:betty Narrative 08/01/2023 4:33 PM SEROLOGY TECHNICIAN For Patients: As a result of the 21st Century Cures Act, medical imaging exams and procedure reports are released immediately into your electronic medical record. ??You may view this report before your referring provider. ?? If you have questions, please contact your health care provider. STEREOTACTIC VACUUM-ASSISTED BREAST BIOPSY AND POST-BIOPSY DIGITAL MAMMOGRAM FOR BIOPSY MARKER PLACEMENT, 08/01/2023 CLINICAL HISTORY: RIGHT breast calcifications, stereotactic-guided biopsy recommended. COMPARISON STUDIES: Additional mammographic views of the RIGHT breast 07/18/2023. TECHNIQUE: The biopsy was performed using a dedicated stereotactic biopsy unit. Straight racing car driver and pre- and post-biopsy stereo pair spot digital mammograms were obtained for targeting. A vacuum-assisted directional biopsy system was used to obtain core tissue samples with a 9-gauge probe. A digital radiograph of biopsy samples was obtained if calcifications were the targeted lesion. Post-biopsy CC and ML digital mammograms were obtained to document position of the biopsy marker. CONSENT and TIME OUT: The procedure, risks, and alternatives were explained to the patient and a consent was signed. [place] Protocol was followed including pre-procedure verification that relevant information/documentation was available, reviewed and properly matched to the patient; consent accurate and complete; and equipment and supplies available. Time Out was conducted just prior to starting procedure to verify the four required elements: patient identity, correct side/site marked (if applicable), procedure, relevant images/results properly labeled and displayed (if applicable). PROCEDURE: The patient was positioned for stereotactic biopsy. The breast was prepped with Betadine or ChloraPrep. 3 cc of 1% lidocaine was injected for superficial anesthesia and 8 cc of 1% lidocaine with epinephrine was injected for deeper anesthesia. Core tissue samples were obtained. A sterile metal biopsy clip was placed percutaneously to hank the lesion position within the breast. The specimens were placed in 10% formalin and sent to the pathology department. Pressure was held on the biopsy site until all bleeding subsided. The skin incision was closed with Steri-Strips and an ice pack was placed over the biopsy site. Post-biopsy instructions were reviewed with the patient, and a written copy was given to her. LATERALITY: RIGHT breast. LESION: Grouped amorphous calcifications spanning 0.8 cm at 7 o'clock 6 cm from the nipple. SUSPICION FOR MALIGNANCY: Intermediate. NUMBER OF SAMPLES: 3. SPECIMEN RADIOGRAPH: Contains calcifications. BIOPSY CLIP SHAPE: Butterfly HydroMARK clip. PROXIMITY OF CLIP TO TARGET: On target. Stacey L Fozia KIDD-C MAMMO * US BREAST UNILATERAL LEFT LIMITED (08/01/2023 2:27 PM SEROLOGY TECHNICIAN) Anatomical Region Laterality Modality BREASTS, Breast Left, Breast Right Left Ultrasound, Other 08/01/2023 3:24 PM SEROLOGY TECHNICIAN Impressions 08/01/2023 4:33 PM SEROLOGY TECHNICIAN Benign LEFT breast simple cyst. RECOMMENDATIONS: Plan for stereotactic-guided biopsy of the RIGHT breast. Results and recommendations were discussed with the patient at the time of the exam. BI-RADS Category 2: Benign Dictated by: Jessica Hager MD @08/01/2023 3:24:35 PM / CRL:betty Narrative 08/01/2023 4:33 PM SEROLOGY TECHNICIAN For Patients: As a result of the Cures Act, medical imaging exams and procedure reports are released immediately into your electronic medical record. ??You may view this report before your referring provider. ?? If you have questions, please contact your health care provider. LEFT BREAST ULTRASOUND, 08/01/2023 CLINICAL HISTORY: Review of screening mammogram demonstrates a mass in the breast where targeted ultrasound is recommended. COMPARISON: Mammogram 11/05/2022, 09/20/2021. TECHNIQUE: Real-time ultrasound imaging of LEFT breast with imaging documentation. Scanning was performed by both the technologist and the radiologist. FINDINGS: Targeted ultrasound was performed the LEFT breast at 3 o'clock, 3 cm from the nipple. There is underlying simple cyst measuring 0.9 x 0.4 x 0.7 cm. This correlated to the mammogram and is benign. December Fozia KIDD-Josette US from Last 3 Months Care Teams Headrig Sawyer Relationship Specialty Start Date End Date Pcp, No . PCP - General 11/20/15
--- OUTSIDE RECORDS SUMMARY | 2023-10-10 08:52 | XMS_ITS ---
Author Name Unknown Organization [facility] Address [address] [place] [address] Care Team Providers Care Salesperson [employer] Name Role Phone Unavailable Unavailable Unavailable Surgery Details Not on file Complications Check Surgery Details section. Procedure Estimated Blood Loss Check Surgery Details section. Procedure Findings Check Surgery Details section. Procedure Specimens Taken Check Surgery Details section.
--- OUTSIDE RECORDS SUMMARY | 2023-10-10 08:52 | XMS_ITS | Clinical Summary ---
Author Name Unknown Organization [facility] Address [address] [place] [address] Care Team Providers Care Mixer Tender Name Role Phone Unavailable Primary Care Provider Unavailabl e Source Comments Patient records contain information from all sites at [facility]. For routine questions regarding patient records, call [phone] during business hours, M-F 8:00 AM - 5:00 PM Central Time. 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) 09/27/2023 9:43 AM LOOM FIXER HELPER - 09/27/2023 12:34 PM LOOM FIXER HELPER Hospital Encounter Department of Radiation Oncology in [place], [place] [address] [place] [phone] Radha Elena M.D. 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) from Last 3 Months Immunizations Name Administration Dates Next Due DTaP (Infanrix, Tripedia) 04/10/2009 Family History Medical History Relation Name Comments Breast cancer Aunt Aunt was adopt ed. Lymphoma Father Breast cancer Maternal Grandmother Breast cancer Mother Prostate cancer Paternal Grandfather Victoria ent is unsure about this. Relation Name Status Comments Aunt Father Maternal Grandmother Mother Paternal Grandfather Social History Tobacco Use Types Packs/Day Years [...] Comments Blood Pressure 124/65 09/27/2023 9:53 AM LOOM FIXER HELPER Pulse 81 09/27/2023 9:53 AM LOOM FIXER HELPER Temperature 36.9 ??C (98.4 ??F) 09/27/2023 9:53 AM CS T Respiratory Rate - - Oxygen Saturation - - Inhaled Oxygen Concentration - - Weight 72.6 kg (160 lb 0.9 oz) 09/27/2023 9:53 A M LOOM FIXER HELPER Height - - Body Mass Index - - Plan of Treatment Upcoming Encounters Date Type Department Care Team (Late st Contact Info) Description 10/22/2023 9:00 AM LOOM FIXER HELPER Appointment Department of Radiation Oncology in [place], [place] [address] [place] [address] Radha Elena M.D. [address] [place] [address] 10/22/2023 9:30 AM LOOM FIXER HELPER Appointment Department of Radiation Oncology in [place], [place] [address] [place] [address] Radha Elena M.D. [address] [place] [address] Health Maintenance Due Date Last Done Comments HIV Screening 1981 Hepatitis B Vaccines (1 of 3 - 3-dose series) 1981 Hepatitis C Screening 1981 Lipid (Cholesterol) Screening 1981 COVID-19 Vaccine (#1) 1981 Cervical Cancer Screening 04/05/2019 04/05/2016 Influenza Vaccine (#1) 2023 07/12/2015, 2012 Depression Screening (Annual PHQ-2) 09/17/2023 Mammogram 09/14/2024 09/14/2023, 08/18, 08/01/2023, Additional history exists DTaP,Tdap,and Td Vaccines (4 - Td or Tdap) 01/25/2026 01/26/2016, 12/16/2013, 04/10/2009, Additional history exists HPV Vaccines Aged Out No longer eligi ble based on patient's age to complete this topic Pneumococcal vaccine (0-64 years) Aged Out No longer eligible based on patient's age to complete this topic Procedures Procedure Name Priority Date/Time Associated Diagnosis Comments OUTSIDE MG MAMMOGRAM Routine 09/14/2023 12:55 PM LOOM FIXER HELPER OUTSIDE MG MAMMOGRAM Routine 09/14/2023 11:15 AM LOOM FIXER HELPER OUTSIDE US BREAST Routine 09/14/2023 10: 35 AM LOOM FIXER HELPER OUTSIDE US BREAST Routine 08/01/2023 5:0 0 PM LOOM FIXER HELPER OUTSIDE MG MAMMOGRAM Routine 08/01/2023 3:10 PM LOOM FIXER HELPER OUTSIDE MG MAMMOGRAM Routine 08/01/2023 2:20 PM LOOM FIXER HELPER OUTSIDE MG MAMMOGRAM Routine 07/18/2023 9:50 AM CDT from Last 3 Months Results * MM surgical specimen RT-Outside Mammogram (09/14/2023 12:55 PM LOOM FIXER HELPER) Only the most recent of5 resultswithin the time period is included. Narrative IIMS - 09/19/2023 2:27 PM LOOM FIXER HELPER This order has been created and auto-finalized to support the import of outside images. If available, original interpretation can be found on the Media Tab in Chart Review, in Document Viewer, or as an image in QREADS. If a re-interpretation or overread is required please follow defined workflow. ?? Provider Not In System IMG BI PROCEDURES Performing Organization Address [facility] Co de Phone Number IIMS NA * US BREAST NEEDLE LOC RT-Outside US Breast (09/14/2023 10:35 AM LOOM FIXER HELPER) Only the most recent of2 resultswithin the time period is included. Narrative IIMS - 09/19/2023 2:27 PM LOOM FIXER HELPER This order has been created and auto-finalized to support the import of outside images. If available, original interpretation can be found on the Media Tab in Chart Review, in Document Viewer, or as an image in QREADS. If a re-interpretation or overread is required please follow defined workflow. ?? Provider Not In System IMG BI PROCEDURES Performing Organization Address [facility] de Phone Number IIMS NA from Last 3 Months [phone] [facility] [phone]
--- OUTSIDE RECORDS SUMMARY | 2023-10-10 08:52 | XMS_ITS | Encounter Summary ---
Author Name Unknown Organization [facility] Address [address] [place] [address] Care Team Providers Care Acting Instructor Name Role Phone Unavailable Primary Care Provider Unavailabl e Reason for Referral * Outpatient (Routine) - Authorized Specialty Diagnoses / Procedures Referred By Contac t Referred To Contact Radiation Oncology Radha Elena M.D. [address] [place] [address] [facility] Region Referral ID Status Reason Start Date Expiration Date V isits Requested Visits Authorized [id number] Authorized 10/05/2023 04/05/2025 1 1 DRIVER * Specialty Diagnoses / Procedures Referred By Contac t Referred To Contact Radha Elena M.D. [address] [place] [address] [facility] Region Referral ID Status Reason Start Date Expiration Date Visits Re quested Visits Authorized DRIVER * Radiation Therapy (Routine) - Authorized Specialty Diagnoses / Procedures Referred By Contac t Referred To Contact Diagnoses Cancer Breast Ductal In Situ Right Procedures Management Visit Radha Elena M.D. [address] [place] [address] [facility] Region Referral ID Status Reason Start Date Expiration Date V isits Requested Visits Authorized [id number] Authorized 10/05/2023 10/04/2024 10 10 DRIVER * Radiation Therapy (Routine) - Authorized Specialty Diagnoses / Procedures Referred By Contac t Referred To Contact Diagnoses Cancer Breast Ductal In Situ Right Procedures Prior Auth Rad Tx [place] RADTN TX DEL >=1 MEV COMPLEX 3D Radha Elena M.D. [address] [place] [address] [facility] Referral ID Status Reason Start Date Expiration Date V isits Requested Visits Authorized [id number] Authorized 10/10/2023 10/04/2024 19 19 DRIVER * Radiation Therapy (Routine) - Authorized Specialty Diagnoses / Procedures Referred By Contac t Referred To Contact Diagnoses Cancer Breast Ductal In Situ Right Procedures Initial Rad Onc Treatment Planning CT Simulation Radha Elena M.D. [address] [place] [address] [facility] Referral ID Status Reason Start Date Expiration Date V isits Requested Visits Authorized [id number] Authorized 10/05/2023 10/04/2024 1 1 DRIVER Encounter Details Date Type Department Care Team (Late st Contact Info) Description 10/05/2023 Orders Only Department of Radiation Oncology in [place], [place] [address] [place] [phone] Radha Elena M.D. [address] [place] [phone] 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) Social History Tobacco Use Types Packs/Day Years Used Date Smoking Tobacco: Never Smokeless Tobacco: Never Alcohol Use Standard Drinks/Week Comments Not Currently [...] on file documented as of this encounter Plan of Treatment Upcoming Encounters Date Type Department Care Team (Late st Contact Info) Description 10/22/2023 9:00 AM TEST DRIVER Appointment Department of Radiation Oncology in [place], [place] [address] [place] [phone] Radha Elena M.D. [address] [place] [address] 10/22/2023 9:30 AM TEST DRIVER Appointment Department of Radiation Oncology in [address] [phone] Radha Elena M.D. [address] [place] [address] Scheduled Orders Name Type Priority Associated Diagnoses Order Schedule Prior Auth Rad Tx Radiation Oncology Routine Cancer Breast Ductal In Situ Right Ordered: 10/05/2023 Management Visit Radiation Oncology Routine Cancer Breast Ductal In Situ Right 10 Occurrences starting 10/05/2023 until 10/05/2024 Scheduled Referrals Name Type Priority Associated Diagnoses Orde r Schedule Radiation Oncology - PRO education visit Outpatient Referral Routine Cancer Breast Ductal In Situ Right Expected: 10/19/2023 (Approximate), Expires: 01/03/2024 Radiation Oncology office visit (clinic) Outpatient Referral Routine Expected: 10/12/2023 (Approximate), Expires: 10/05/2024 documented as of this encounter Visit Diagnoses Diagnosis Cancer Breast Ductal In Situ Right- Primary documented in this encounter
--- NOTE | 2023-10-10 09:15 | CRLHL7_ITS ---
For Patients: As a result of the Century Cures Act, medical imaging exams and procedure reports are released immediately into your electronic medical record. You may view this report before your referring provider. If you have questions, please contact your health care provider. BILATERAL BREAST MRI WITHOUT AND WITH GADOLINIUM, 10/10/2023 CLINICAL HISTORY: 43-year-old female who had a RIGHT breast biopsy yielding ADH, ALH at the 7 o???clock position 6 cm from the nipple. Subsequent surgical excision was performed yielding DCIS at least 3 mm. INDICATION FOR BREAST MRI: Staging of newly diagnosed breast cancer and screening of contralateral breast. Regional lymph nodes will also be assessed. COMPARISON STUDIES: Mammogram 07/18/2023, 09/14/2023. CONTRAST: 15 cc Dotarem. TECHNIQUE: The patient was positioned prone using a breast coil. Multiple imaging sequences were obtained using 1-1.5 mm thick slices with no gap. The image sequences include T2-weighted STIR in the axial plane, T1-weighted nonfat-saturated gradient echo in the axial plane, pre- and post-contrast T1-weighted FLASH 3D with fat suppression in the axial plane, and T1-weighted FLASH high-resolution 3D with fat suppression in the sagittal plane. Image post-processing was performed on a [employer] workstation. Complex 3D rendering including maximum intensity projections (MIPS) and volumetric renderings were obtained to optimize visualization of the extent of pathology and relationship to the nipple, skin, and chest wall. This aids in determining feasibility of breast conservation surgery. Subtraction, multiplanar reconstruction, mean curve determination, and angiogenesis mapping were also performed. The study was technically adequate. FINDINGS: Breast Density: Heterogeneous fibroglandular tissue. Breast Background Enhancement: Mild. RIGHT Breast/ LEFT Breast: There is no suspicious enhancement in either breast. Post surgical changes of RIGHT surgical excision with a 1.6 x 0.5 cm postoperative fluid collection in the inferior RIGHT breast. There is no additional suspicious enhancement in either breast. There is no morphologically abnormal axillary lymph nodes are seen. Lymph Nodes: There is no morphologically abnormal axillary lymph nodes are seen. IMPRESSIONS AND RECOMMENDATIONS: Post surgical changes of the RIGHT inferior breast with a 1.6 x 0.5 cm postoperative fluid collection. No suspicious enhancement in either breast. No morphologically abnormal axillary lymph nodes. Surgical and oncological management per referring physician. BI-RADS: BI-RADS Category 6: Known Biopsy-Proven Malignancy Theresa Morton M.D. Diagnostic/Breast Radiologist [email or web address] Transcribed: 1:55 p.m. JR/Dictated by: Theresa Morton MD @ 10/11/2023 1:49:00 PM (Electronically Signed)
== END 2023-10-10 08:49 | disposition home or self-care (01) ==
LOC: MRI 08:48
PROVIDERS: PCP Family Medicine; Visit Provider Surgery
DX: D05.11 Intraductal carcinoma in situ of right breast (principal)
CPT/HCPCS: 77049; A9575

== ENCOUNTER 2023-12-20 07:23 | Outpatient (RCR) | payer BC, SELFPAY ==
--- NOTE | 2023-10-02 13:30 | ONC.NURNOTE ---
Plan of Care Accompanied pt to consult with Dr. Harry. Pt ed sheets on Tamoxifen given. Breast MRI 10/12 - pt to review results with Dr. Conde possibly via phone, or if pt has more questions, she will schedule in-person visit to discuss if re-excision of margins recommended. Rad Onc - Saw Dr. Elena 09/27; consult note scanned. Simulation tentatively week of 10/22; 5-15 fractions, with possible booster, depending on final surgical plan. RTC - tentatively November, depending on surgical and radiation treatment plan/timing. BNN following.
== END 2024-03-30 23:59 | disposition home or self-care (01) ==
LOC: CCIC 07:23
PROVIDERS: PCP Family Medicine; Visit Provider Physician Assistant
DX: D05.11 Intraductal carcinoma in situ of right breast (principal); Z17.0 Estrogen receptor positive status [ER+]; Z80.3 Family history of malignant neoplasm of breast
CPT/HCPCS: 99202; 99205; 99215; G0463

== ENCOUNTER 2024-01-23 09:47 | Outpatient (CLI) | payer BC, SELFPAY ==
--- OUTSIDE RECORDS SUMMARY | 2024-01-23 09:49 | XMS_ITS | Encounter Summary ---
Author Name Unknown Organization [facility] Address [address] [place] [address] Care Team Providers Care Hollow Handle Knife Assembler Name Role Phone Unavailable Primary Care Provider Unavailabl e Reason for Visit * Radiation Therapy (Routine) - Authorized Specialty Diagnoses / Procedures Referred By Contsanchez t Referred To Contact Diagnoses Cancer Breast Ductal In Situ Right Procedures Prior Auth Rad Tx [place] RADTN TX DEL >=1 MEV COMPLEX 3D Radha Elena M.D. [address] [place] [address] [facility] Referral ID Status Reason Start Date Expiration Date V isits Requested Visits Authorized [id number] Authorized 10/10/2023 10/04/2024 19 19 Encounter Details Date Type Department Care Team (Latest Contact Info) Description 11/08/2023 9:04 AM AIR AND WATER FILLER - 11/08/2023 11:59 PM [facility] Hospital Encounter Department of Radiation Oncology in [place], [place] [address] [place] [phone] Radha Elena M.D. [address] [place] [phone] Discharge Disposition: Home or Self Care Social History Tobacco Use Types Packs/Day Years [...] on file documented as of this encounter Medications at Time of Discharge Medication Sig Dispensed Refills Start Date End Date mometasone (ELOCON) 0.1 % ointment Apply 1 Application topically 2 (two) times a day. Apply to right breast. 45 g 10/26/2023 11/13/2023 documented as of this encounter Plan of Treatment Not on file documented as of this encounter Visit Diagnoses Not on filedocumented in this encounter
--- OUTSIDE RECORDS SUMMARY | 2024-01-23 09:49 | XMS_ITS | Encounter Summary ---
Author Name Unknown Organization [facility] Address [address] [place] [address] Care Team Providers Care Customs Investigator Name Role Phone Unavailable Primary Care Provider Unavailabl e Reason for Referral * Radiation Therapy (Routine) - Authorized Specialty Diagnoses / Procedures Referred By Anton cesar Referred To Contact Diagnoses Cancer Breast Ductal In Situ Right Procedures Management Visit Radha Elena M.D. [address] [place] [address] [facility] Region Referral ID Status Reason Start Date Expiration Date V isits Requested Visits Authorized [id number] Authorized 10/05/2023 10/04/2024 10 10 NOGRAPHY TEACHER Reason for Visit * Radiation Therapy (Routine) - Authorized Specialty Diagnoses / Procedures Referred By Anton cesar Referred To Contact Diagnoses Cancer Breast Ductal In Situ Right Procedures Management Visit Radha Elena M.D. [address] [place] [address] [facility] Region Referral ID Status Reason Start Date Expiration Date V isits Requested Visits Authorized [id number] Authorized 10/05/2023 10/04/2024 10 10 Encounter Details Date Type Department Care Team (Latest Contact Info) Description 11/13/2023 9:02 AM OCEANOGRAPHY TEACHER - 11/13/2023 5:13 PM OCEANOGRAPHY TEACHER Hospital Encounter Department of Radiation Oncology in [place], [place] [address] [place] [phone] Radha Elena M.D. [address] [place] [address] Cancer Breast Ductal In Situ Right Social History Tobacco Use Types Packs/Day Years [...] Sign Reading Time Taken Comments Blood Pressure - - Pulse - - Temperature 36.7 ??C (98.1 ??F) 11/13/2023 9:29 AM CS T Respiratory Rate - - Oxygen Saturation - - Inhaled Oxygen Concentration - - Weight 72.6 kg (160 lb 0.9 oz) 11/13/2023 9:29 A M OCEANOGRAPHY TEACHER Height - - Body Mass Index - - documented in this encounter Medications at Time of Discharge Medication Sig Dispensed Refills Start Date End Date mometasone (ELOCON) 0.1 % ointment Apply 1 Application topically 2 (two) times a day. Apply to right breast. 45 g 11/13/2023 documented as of this encounter Progress Notes * Radha Elena M.D. - 11/13/2023 9:30 AM CST ATTESTATION FOR MANAGEMENT VISIT I saw and evaluated the patient and participated in the [place] portions of the service as noted below.I reviewed the documentation of Ms. Latanya Schwartz RN and agree with the findings and plan. The patient appears well on exam. We will continue with radiation as planned and we anticipate that she willcomplete treatments this week. We anticipate that Ms. Kari Cantu will complete radiation treatment as planned without interruptions. The course of treatment was tolerated well. The patient experienced toxicities of grade 1 dermatitis, itching, and pain during radiation treatment. Follow-up will be with Dr. Harry; we will see her again as needed. Radha Elena M.D., 11/13/2023 SUBJECTIVE REASON FOR VISIT Evaluation for side effects while receiving radiation treatment for 1. Cancer Breast Ductal In Situ Right SUPERVISED BY: Dr. Elena HISTORY OF PRESENT ILLNESS Ms. Kari Cantu is a 43 y.o. female with resected right breast DCIS. Patient is now undergoing radiation therapy. Treatment Course: 1xBreast Plan ID Fractions Dose / Fraction (cGy) Dose Treated (cGy) Dose Planned (cGy) First Treatment Last Treatment Elapsed Days [id number] 10/29/2023 11/13/2023 15 Course Summary 10/29/2023 11/13/2023 15 The patient was seen and examined today with Dr. Elena. The patient reports 2 out of 10 right breast discomfort. Patient does not feel the need to take pain medication at this time. Patient is applying mometasone twice a day to right breast. Patient is applying moisturizing lotion. Patient does report itching with in the treatment field area. Patient applied Benadryl ointment last evening and this helped manage itch. Patient reports feeling swollen inthe right breast. Patient is requesting refill for Mometasone ointment. PATIENT REPORTED SYMPTOM SCREEN FATIGUE (Scale: 0 = no fatigue; 10 = worst fatigue you can imagine): 5 PAIN (Scale: 0 = no pain; 10 = worst pain you can imagine): 2 OVERALL QUALITY OF LIFE (Scale: 0 = as bad as can be; 10 = as good as can be): 10 OBJECTIVE Temp 36.7 ??C (Temporal) Wt 72.6 kg PHYSICAL EXAM General: Alert and oriented in no apparent distress. Skin: Minimal pink to red toned skin noted to right breast. Irritation and dryness noted to right nipple. No desquamation noted. 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 Patient will continue with mometasone twice a day and moisturizing lotion twice a day to the left breast. Patient will start apply Aquaphorointment to right nipple. I reviewed Moist Skin Reaction pamphlet with patient today. I provided her samples of Pro Net, Xeroform and Telfa today. I reviewed ordering information with patient today. Skin changes should start to heal in 2-[address] Harry plans to see patient in follow up. We will keep Radiation Oncology follow up to an as needed basis only. Mometasone ointment refill has been sent to patient's pharmacy today. I reviewed monthly self breast examination brochure with patient today. She will contact us with any questions or concerns. We will continue with radiation treatment as planned. Toxicities reviewed with Dr. Elena today. Signed by: Latanya Schwartz R.N. 11/13/2023 2:16 PM OCEANOGRAPHY TEACHER NOGRAPHY TEACHER documented in this encounter Plan of Treatment Scheduled Orders Name Type Priority Associated Diagnoses Orde r Schedule Management Visit Radiation Oncology Routine Cancer Breast Ductal In Situ Right Once for 1 Occurrences starting 11/13/2023 until 11/13/2023 documented as of this encounter Visit Diagnoses Diagnosis Cancer Breast Ductal In Situ Right documented in this encounter
--- OUTSIDE RECORDS SUMMARY | 2024-01-23 09:49 | XMS_ITS | Encounter Summary ---
Author Name Unknown Organization [facility] Address [address] [place] [address] Care Team Providers Care Maintenance Trainer Name Role Phone Unavailable Primary Care Provider Unavailabl e Reason for Visit * Radiation Therapy (Routine) - Authorized Specialty Diagnoses / Procedures Referred By Contsanchez t Referred To Contact Diagnoses Cancer Breast Ductal In Situ Right Procedures Prior Auth Rad Tx [place] RADTN TX DEL >=1 MEV COMPLEX 3D Radha Elena M.D. [address] [place] [address] [facility] Referral ID Status Reason Start Date Expiration Date V isits Requested Visits Authorized [id number] Authorized 10/10/2023 10/04/2024 19 19 Encounter Details Date Type Department Care Team (Latest Contact Info) Description 11/09/2023 9:06 AM BAROMETERS CALIBRATOR - 11/09/2023 11:59 PM [facility] Hospital Encounter Department of Radiation Oncology in [place], [place] [address] [place] [phone] Radha Elena M.D. [address] [place] [phone] Discharge Disposition: Home or Self Care Social [...]
--- OUTSIDE RECORDS SUMMARY | 2024-01-23 09:49 | XMS_ITS | Encounter Summary ---
Author Name Unknown Organization [facility] Address [address] [place] [address] Care Team Providers Care Flume Ride Operator Name Role Phone Unavailable Primary Care Provider Unavailabl e Reason for Visit * Radiation Therapy (Routine) - Authorized Specialty Diagnoses / Procedures Referred By Contsanchez t Referred To Contact Diagnoses Cancer Breast Ductal In Situ Right Procedures Prior Auth Rad Tx [place] RADTN TX DEL >=1 MEV COMPLEX 3D Radha Elena M.D. [address] [place] [address] [facility] Referral ID Status Reason Start Date Expiration Date V isits Requested Visits Authorized [id number] Authorized 10/10/2023 10/04/2024 19 19 Encounter Details Date Type Department Care Team (Latest Contact Info) Description 11/12/2023 9:06 AM BOX BLANK MACHINE OPERATOR HELPER - 11/12/2023 11:59 PM [facility] Hospital Encounter Department of Radiation Oncology in [place], [place] [address] [place] [phone] Radha Elena M.D. [address] [place] [phone] Discharge Disposition: Home or Self Care Social [...]
--- OUTSIDE RECORDS SUMMARY | 2024-01-23 09:49 | XMS_ITS | Clinical Summary ---
Author Name Unknown Organization [facility] Address [address] [place] [address] Care Team Providers Care Senior Clinical Consultant Name Role Phone Unavailable Primary Care Provider Unavailabl e Source Comments Patient records contain information from all sites at [facility]. For routine questions regarding patient records, call [phone] during business hours, M-F 8:00 AM - 5:00 PM Central Time. Record requests for emergency care only can be directed to [phone] at any time.[facility] Allergies No known active allergies Medications Medication Sig Dispensed Refills Start Date End Date Status mometasone (ELOCON) 0.1 % ointment Apply 1 Application topically 2 (two) times a day. Apply to right breast. 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 Discharge Disposition: Home or Self Care 11/16/2023 Documentation Department of Radiation Oncology in [place], [place] [address] [place] [phone] Radha Elena M.D. 11/15/2023 9:12 AM GRINDING WHEEL DRESSER - 11/15/2023 11:59 PM GRINDING WHEEL DRESSER Hospital Encounter Department of Radiation Oncology in [address] [address] Radha Elena M.D. Discharge Disposition: Home or Self Care 11/14/2023 9:04 AM GRINDING WHEEL DRESSER - 11/14/2023 11:59 PM GRINDING WHEEL DRESSER Hospital Encounter Department of Radiation Oncology in [address] [phone] Radha Elena M.D. Discharge Disposition: Home or Self Care 11/13/2023 9:02 AM GRINDING WHEEL DRESSER - 11/13/2023 5:13 PM GRINDING WHEEL DRESSER Hospital Encounter Department of Radiation Oncology in [address] [phone] Radha Elena M.D. Cancer Breast Ductal In Situ Right 11/13/2023 9:01 AM GRINDING WHEEL DRESSER Hospital Encounter Department of Radiation Oncology in [address] [phone] Radha Elena M.D. Discharge Disposition: Home or Self Care 11/12/2023 9:06 AM GRINDING WHEEL DRESSER - 11/12/2023 11:59 PM GRINDING WHEEL DRESSER Hospital Encounter Department of Radiation Oncology in [address] [phone] Radha Elena M.D. Discharge Disposition: Home or Self Care 11/09/2023 9:06 AM GRINDING WHEEL DRESSER - 11/09/2023 11:59 PM GRINDING WHEEL DRESSER Hospital Encounter Department of Radiation Oncology in [address] [phone] Radha Elena M.D. Discharge Disposition: Home or Self Care 11/08/2023 9:04 AM GRINDING WHEEL DRESSER - 11/08/2023 11:59 PM GRINDING WHEEL DRESSER Hospital Encounter Department of Radiation Oncology in [address] [phone] Radha Elena M.D. Discharge Disposition: Home or Self Care 11/07/2023 8:58 AM GRINDING WHEEL DRESSER - 11/07/2023 3:22 PM GRINDING WHEEL DRESSER Hospital Encounter Department of Radiation Oncology in [address] [phone] Radha Elena M.D. Cancer Breast Ductal In Situ Right 11/07/2023 8:58 AM GRINDING WHEEL DRESSER - 11/07/2023 11:59 PM GRINDING WHEEL DRESSER Hospital Encounter Department of Radiation Oncology in [address] [phone] Radha Elena M.D. Discharge Disposition: Home or Self Care 11/06/2023 9:25 AM GRINDING WHEEL DRESSER - 11/06/2023 11:59 PM GRINDING WHEEL DRESSER Hospital Encounter Department of Radiation Oncology in [address] [phone] Radha Elena M.D. Discharge Disposition: Home or Self Care 11/05/2023 11:47 AM GRINDING WHEEL DRESSER - 11/05/2023 11:59 PM GRINDING WHEEL DRESSER Hospital Encounter Department of Radiation Oncology in [address] [phone] Radha Elena M.D. Discharge Disposition: Home or Self Care 11/02/2023 9:50 AM GRINDING WHEEL DRESSER - 11/02/2023 11:39 AM GRINDING WHEEL DRESSER Hospital Encounter Department of Radiation Oncology in [address] [phone] Lorne Castillo M.D. Cancer Breast Ductal In Situ Right 11/02/2023 9:50 AM GRINDING WHEEL DRESSER - 11/02/2023 11:05 AM GRINDING WHEEL DRESSER Hospital Encounter Department of Radiation Oncology in [address] [phone] Radha Elena M.D. Grieman, Kari A, R.N. Cancer Breast Ductal In Situ Right Discharge Disposition: Home or Self Care 11/02/2023 9:49 AM GRINDING WHEEL DRESSER Hospital Encounter Department of Radiation Oncology in [address] [address] Radha Elena M.D. Discharge Disposition: Home or Self Care 11/01/2023 10:01 AM GRINDING WHEEL DRESSER - 11/01/2023 11:59 PM GRINDING WHEEL DRESSER Hospital Encounter Department of Radiation Oncology in [address] [address] Radha Elena M.D. Discharge Disposition: Home or Self Care 10/31/2023 10:02 AM GRINDING WHEEL DRESSER - 10/31/2023 11:59 PM GRINDING WHEEL DRESSER Hospital Encounter Department of Radiation Oncology in [address] [address] Radha Elena M.D. Discharge Disposition: Home or Self Care 10/30/2023 10:03 AM GRINDING WHEEL DRESSER - 10/30/2023 11:59 PM GRINDING WHEEL DRESSER Hospital Encounter Department of Radiation Oncology in [address] [phone] Radha Elena M.D. Discharge Disposition: Home or Self Care 10/29/2023 12:45 PM GRINDING WHEEL DRESSER - 10/29/2023 1:26 PM GRINDING WHEEL DRESSER Hospital Encounter Department of Radiation Oncology in [address] [phone] Radha Elena M.D. Cancer Breast Ductal In Situ Right 10/29/2023 12:32 PM GRINDING WHEEL DRESSER - 10/29/2023 12:44 PM GRINDING WHEEL DRESSER Hospital Encounter Department of Radiation Oncology in [address] [phone] Radha Elena M.D. Discharge Disposition: Home or Self Care 10/26/2023 Clinical Communication Department of Radiation Oncology in [address] [phone] Radha Elena M.D. from Last 3 Months Immunizations Name Administration [...] Sign Reading Time Taken Comments Blood Pressure 118/58 10/22/2023 8:54 AM GRINDING WHEEL DRESSER Pulse 71 10/22/2023 8:54 AM GRINDING WHEEL DRESSER Temperature 36.7 ??C (98.1 ??F) 11/13/2023 9:29 AM CS T Respiratory Rate - - Oxygen Saturation - - Inhaled Oxygen Concentration - - Weight 72.6 kg (160 lb 0.9 oz) 11/13/2023 9:29 A M GRINDING WHEEL DRESSER Height - - Body Mass Index - - Plan of Treatment Health Maintenance Due Date Last Done Comments HIV Screening 1981 Hepatitis C Screening 1981 Lipid (Cholesterol) Screening 1981 COVID-19 Vaccine (#1) 1986 Pneumococcal vaccine (0-64 years) (1 of 2 - PCV) 1987 Hepatitis B Vaccines (1 of 3 - 19+ 3-dose series) 2000 Zoster Vaccines (1 of 2) 2000 Cervical Cancer Screening 04/05/2019 04/05/2016 Influenza Vaccine (#1) 2023 07/12/2015, 2012 Depression Screening (Annual PHQ-2) 09/17/2023 Mammogram 09/14/2024 09/14/2023, 12/05/2023, 08/01/2023, Additional history exists DTaP,Tdap,and Td Vaccines (4 - Td or Tdap) 01/25/2026 01/26/2016, 12/16/2013, 04/10/2009, Additional history exists HPV Vaccines Aged Out No longer eligi ble based on patient's age to complete this topic Procedures Procedure Name Priority Date/Time Associated Diagnosis Comments ARIA COURSE COMPLETE TREATMENT INFORMATION Routine 11/16/2023 9:11 AM GRINDING WHEEL DRESSER ARIA DAILY TREATMENT INFORMATION Routine 11/16/2023 9:11 AM GRINDING WHEEL DRESSER ARIA DAILY TREATMENT INFORMATION Routine 11/15/2023 9:32 AM GRINDING WHEEL DRESSER ARIA DAILY TREATMENT INFORMATION Routine 11/14/2023 9:17 AM GRINDING WHEEL DRESSER ARIA DAILY TREATMENT INFORMATION Routine 11/13/2023 9:16 AM GRINDING WHEEL DRESSER ARIA DAILY TREATMENT INFORMATION Routine 11/12/2023 9:22 AM GRINDING WHEEL DRESSER ARIA DAILY TREATMENT INFORMATION Routine 11/09/2023 9:17 AM GRINDING WHEEL DRESSER ARIA DAILY TREATMENT INFORMATION Routine 11/08/2023 9:17 AM GRINDING WHEEL DRESSER ARIA DAILY TREATMENT INFORMATION Routine 11/07/2023 9:16 AM GRINDING WHEEL DRESSER ARIA DAILY TREATMENT INFORMATION Routine 11/06/2023 9:35 AM GRINDING WHEEL DRESSER ARIA DAILY TREATMENT INFORMATION Routine 11/05/2023 12:14 PM GRINDING WHEEL DRESSER ARIA DAILY TREATMENT INFORMATION Routine 11/02/2023 10:16 AM GRINDING WHEEL DRESSER ARIA DAILY TREATMENT INFORMATION Routine 11/01/2023 10:26 AM GRINDING WHEEL DRESSER ARIA DAILY TREATMENT INFORMATION Routine 10/31/2023 10:21 AM GRINDING WHEEL DRESSER ARIA DAILY TREATMENT INFORMATION Routine 10/30/2023 10:31 AM GRINDING WHEEL DRESSER ARIA DAILY TREATMENT INFORMATION Routine 10/29/2023 1:38 PM GRINDING WHEEL DRESSER OUTSIDE MG MAMMOGRAM Routine 09/14/2023 12:55 PM GRINDING WHEEL DRESSER from Last 3 Months or Most Recently Relevant to Health Maintenance Results * Aria Course Complete Treatment Information (11/16/2023 9:11 AM GRINDING WHEEL DRESSER) Course ID 1xBreast TEJADA ARIA Course Start Date 4 11:40 GRINDING WHEEL DRESSER TEJADA ARIA Course End Date 4 15:22 GRINDING WHEEL DRESSER TEJADA ARIA First Treatment Date 4 13:36 GRINDING WHEEL DRESSER TEJADA ARIA Last Treatment Date 4 09:11 GRINDING WHEEL DRESSER TEJADA ARIA Treatment Elapsed Days 18 TEJADA ARIA Reference Point [id number] TEJADA ARIA Dosage Given to Date cGy 4800 TEJADA ARIA Plan ID [id number] TEJADA ARIA Fractions Treated to Date 15 TEJADA ARIA Planned Total Fractions 15 TEJADA ARIA Prescribed Dose Per Fraction 320 TEJADA ARIA Prescription Dose in cGy 4800 TEJADA ARIA Plan Primary Reference Point [id number] TEJADA ARIA 11/16/2023 9:11 AM GRINDING WHEEL DRESSER Provider Not In System RADIATION ONCOLOG Y ORDERABLES TEJADA BUSHRAA na * Aria Daily Treatment Information (11/16/2023 9:11 AM GRINDING WHEEL DRESSER) Only the most recent of15 resultswithin the time period is included. Course ID 1xBreast TEJADA ARIA Course Start Date 4 11:40 GRINDING WHEEL DRESSER TEJADA ARIA First Treatment Date 4 13:36 GRINDING WHEEL DRESSER TEJADA ARIA Last Treatment Date 4 09:11 GRINDING WHEEL DRESSER TEJADA ARIA Treatment Elapsed Days 18 TEJADA ARIA Reference Point [id number] TEJADA ARIA Dosage Given to Date cGy 4800 TEJADA ARIA Session Dosage Given 320 TEJADA ARIA Plan ID [id number] TEJADA ARIA Fractions Treated to Date 15 TEJADA ARIA Planned Total Fractions 15 TEJADA ARIA Prescribed Dose Per Fraction 320 TEJADA ARIA Prescription Dose in cGy 4800 TEJADA ARIA Plan Primary Reference Point [id number] TEJADA ARIA 11/16/2023 9:11 AM GRINDING WHEEL DRESSER Provider Not In System RADIATION ONCOLOG Y ORDERABLES TERRELL COVARRUBIAS na * MM surgical specimen RT-Outside Mammogram (09/14/2023 12:55 PM GRINDING WHEEL DRESSER) Narrative IIMS - 09/19/2023 2:27 PM GRINDING WHEEL DRESSER This order has been created and auto-finalized to support the import of outside images. If available, original interpretation can be found on the Media Tab in Chart Review, in Document Viewer, or as an image in QREADS. If a re-interpretation or overread is required please follow defined workflow. ?? Provider Not In System IMG BI PROCEDURES Performing Organization Address [facility] Co de Phone Number IISC NA from Last 3 Months or Most Recently Relevant to Health Maintenance
--- OUTSIDE RECORDS SUMMARY | 2024-01-23 09:49 | XMS_ITS ---
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 Past Plans No past plan information found. Radiation Treatments * Plan Last Treated On Elapsed Days Fractions Treated Prescribed Fraction Dose Prescribed Total Dose [id number] 11/16/2023 18 15 of 15 320 cGy 4,800 cGy Reference Point Last Treated On Elapsed Days Session Dose Total Dose [id number] 11/16/2023 18 320 cGy 4,800 cGy
--- OUTSIDE RECORDS SUMMARY | 2024-01-23 09:49 | XMS_ITS | Encounter Summary ---
Author Name Unknown Organization [facility] Address [address] [place] [address] Care Team Providers Care Electrical Engineering Teacher Name Role Phone Unavailable Primary Care Provider Unavailabl e Reason for Referral * Radiation Therapy (Routine) - Authorized Specialty Diagnoses / Procedures Referred By Anton cesar Referred To Contact Diagnoses Cancer Breast Ductal In Situ Right Procedures Management Visit Radha Elena M.D. [address] [place] [address] [facility] Region Referral ID Status Reason Start Date Expiration Date V isits Requested Visits Authorized [id number] Authorized 10/05/2023 10/04/2024 10 10 INE FEEDER FLOORPERSON Reason for Visit * Radiation Therapy (Routine) - Authorized Specialty Diagnoses / Procedures Referred By Anton cesar Referred To Contact Diagnoses Cancer Breast Ductal In Situ Right Procedures Management Visit Radha Elena M.D. [address] [place] [address] [facility] Region Referral ID Status Reason Start Date Expiration Date V isits Requested Visits Authorized [id number] Authorized 10/05/2023 10/04/2024 10 10 Encounter Details Date Type Department Care Team (Latest Contact Info) Description 11/07/2023 8:58 AM MACHINE FEEDER FLOORPERSON - 11/07/2023 3:22 PM MACHINE FEEDER FLOORPERSON Hospital Encounter Department of Radiation Oncology in [place], [place] [address] [place] [phone] Radha Elena M.D. [address] [place] [address] Cancer Breast Ductal In Situ Right Social [...] Date Recorded Dental: Regular Dentist Unknown 11/18/19 Sex and Gender Information Value Date Recorded Sex Assigned at Not on file Gender Identity Not on file Sexual Orientation Not on file documented as of this encounter Last Filed Vital Signs Vital Sign Reading Time Taken Comments Blood Pressure - - Pulse - - Temperature 36.4 ??C (97.6 ??F) 11/07/2023 9:24 AM CS T Respiratory Rate - - Oxygen Saturation - - Inhaled Oxygen Concentration - - Weight 73 kg (160 lb 15 oz) 11/07/2023 9:[address] Height - - Body Mass Index - - documented in this encounter Medications at Time of Discharge Medication Sig Dispensed Refills Start Date End Date mometasone (ELOCON) 0.1 % ointment Apply 1 Application topically 2 (two) times a day. Apply to right breast. 45 g 10/26/2023 11/13/2023 documented as of this encounter Progress Notes * Radha Elena M.D. - 11/07/2023 9:30 AM CST ATTESTATION FOR MANAGEMENT VISIT I saw and evaluated the patient and participated in the royal portions of the service as noted below.I reviewed the documentation of Ms. Latanya Schwartz RN and agree with the findings and plan. The patient appears well on exam. We will continue with radiation as planned and monitor weekly. Radha Elena M.D., 11/07/2023 SUBJECTIVE REASON FOR VISIT Evaluation for side [...] (cGy) First Treatment Last Treatment Elapsed Days [id number] 320 2560 4800 10/29/2023 11/07/2023 9 Course Summary 10/29/2023 11/07/2023 9 The patient was seen and examined today with Dr. Elena. The patient reports 2 out of 10 right breast discomfort. Patient does not feel the need to take pain medication at this time. Patient is applying mometasone twice a day to right breast. Patient is applying moisturizing lotion. PATIENT REPORTED SYMPTOM SCREEN FATIGUE (Scale: 0 = no fatigue; 10 = worst fatigue you can imagine): 3 PAIN (Scale: 0 = no pain; 10 = worst pain you can imagine): 2 OVERALL QUALITY OF LIFE (Scale: 0 = as bad as can be; 10 = as good as can be): 10 OBJECTIVE Temp 36.4 ??C (Temporal) Wt 73 kg PHYSICAL EXAM General: Alert and oriented in no apparent distress. Skin: Minimal pink toned skin noted to right breast. Irritation noted to right nipple. ASSESSMENT / PLAN #1 Stage 0 (pTis [...] a day to the left breast. Patient can apply Aquaphor ointment to right nipple. We also discussed use of nipple shield and cooling pack to right nipple as needed. She will contact us with any questions or concerns. We will continue with radiation treatment as planned. Signed by: Latanya Schwartz R.N. 11/07/2023 9:35 AM MACHINE FEEDER FLOORPERSON INE FEEDER FLOORPERSON documented in this encounter Plan of Treatment Scheduled Orders Name Type Priority Associated Diagnoses Orde r Schedule Management Visit Radiation Oncology Routine Cancer Breast Ductal In Situ Right Once for 1 Occurrences starting 11/07/2023 until 11/07/2023 documented as of this encounter Visit Diagnoses Diagnosis Cancer Breast Ductal In Situ Right documented in this encounter
--- OUTSIDE RECORDS SUMMARY | 2024-01-23 09:49 | XMS_ITS | Encounter Summary ---
Author Name Unknown Organization [facility] Address [address] [place] [address] Care Team Providers Care Curatorial Assistant Name Role Phone Unavailable Primary Care Provider Unavailabl e Encounter Details Date Type Department Care Team (Late st Contact Info) Description 11/16/2023 Documentation Department of Radiation Oncology in [place], [place] [address] [place] [phone] Radha Elena M.D. [address] [place] [address] Social History Tobacco Use Types Packs/Day Years [...] on file documented as of this encounter Miscellaneous Notes * Radiation Completion Notes - Amanda Rader R.N. - 11/16/2023 11:59 PM CST DIAGNOSIS: 1. Cancer Breast Ductal In Situ Right Attending Physician: Radha Elena M.D. Treatment Intent: Curative Concomitant Therapy: None Single Plan Treatment Course: 1xBreast Plan ID Fractions Dose / Fraction (cGy) Dose Treated (cGy) Dose Planned (cGy) First Treatment Last Treatment Elapsed Days [id number] 320 4800 4800 10/29/2023 11/16/2023 Course Summary 10/29/2023 11/16/2023 Radiation Modality: Photons CLINICAL SUMMARY Ms. Kari Cantu completed radiation treatment as planned without interruptions. The course of treatment was tolerated well. The patient experienced toxicities of grade 1 dermatitis, itching, and pain during radiation treatment. TREATMENT RESPONSE: Response to treatment will be determined by post-treatment imaging and/or laboratory work. RECOMMENDED FOLLOW UP: Primary Medical Oncologist. Signed by: Amanda Rader R.N., 11/19/2023 12:21 PM HOTEL REGISTRATION CLERK [facility] [address] [place] [address] L REGISTRATION CLERK documented in this encounter Plan of Treatment Not on file documented as of this encounter Visit Diagnoses Diagnosis Cancer Breast Ductal In Situ Right- Primary documented in this encounter
--- OUTSIDE RECORDS SUMMARY | 2024-01-23 09:49 | XMS_ITS | Referral Summary ---
Author Name Unknown Organization [facility] Address [address] [place] [address] Care Team Providers Care Picker And Packer Name Role Phone Unavailable Primary Care Provider Unavailabl e Source Comments Patient records contain information from all sites at [facility]. For routine questions regarding patient records, call [phone] during business hours, M-F 8:00 AM - 5:00 PM Central Time. Record requests for emergency care only can be directed to [phone] at any time.[facility] Encounters Date Type Department Care Team Description 11/16/2023 Documentation Department of Radiation Oncology in [address] [address] Radha Elena M.D. 11/16/2023 9:00 AM ROD CUP FILLER - 11/16/2023 11:59 PM ROD CUP FILLER Hospital Encounter Department of Radiation Oncology in [address] [address] Radha Elena M.D. Discharge Disposition: Home or Self Care 11/15/2023 9:12 AM ROD CUP FILLER - 11/15/2023 11:59 PM ROD CUP FILLER Hospital Encounter Department of Radiation Oncology in [address] [address] Radha Elena M.D. Discharge Disposition: Home or Self Care 11/14/2023 9:04 AM ROD CUP FILLER - 11/14/2023 11:59 PM ROD CUP FILLER Hospital Encounter Department of Radiation Oncology in [address] [address] Radha Elena M.D. Discharge Disposition: Home or Self Care 11/13/2023 9:02 AM ROD CUP FILLER - 11/13/2023 5:13 PM ROD CUP FILLER Hospital Encounter Department of Radiation Oncology in [address] [address] Radha Elena M.D. Cancer Breast Ductal In Situ Right 11/13/2023 9:01 AM ROD CUP FILLER Hospital Encounter Department of Radiation Oncology in [address] [address] Radha Elena M.D. Discharge Disposition: Home or Self Care 11/12/2023 9:06 AM ROD CUP FILLER - 11/12/2023 11:59 PM ROD CUP FILLER Hospital Encounter Department of Radiation Oncology in [address] [address] Radha Elena M.D. Discharge Disposition: Home or Self Care 11/09/2023 9:06 AM ROD CUP FILLER - 11/09/2023 11:59 PM ROD CUP FILLER Hospital Encounter Department of Radiation Oncology in [address] [address] Radha Elena M.D. Discharge Disposition: Home or Self Care 11/08/2023 9:04 AM ROD CUP FILLER - 11/08/2023 11:59 PM ROD CUP FILLER Hospital Encounter Department of Radiation Oncology in [address] [address] Radha Elena M.D. Discharge Disposition: Home or Self Care 11/07/2023 8:58 AM ROD CUP FILLER - 11/07/2023 3:22 PM ROD CUP FILLER Hospital Encounter Department of Radiation Oncology in [address] [address] Radha Elena M.D. Cancer Breast Ductal In Situ Right 11/07/2023 8:58 AM ROD CUP FILLER - 11/07/2023 11:59 PM ROD CUP FILLER Hospital Encounter Department of Radiation Oncology in [address] [address] Radha Elena M.D. Discharge Disposition: Home or Self Care 11/06/2023 9:25 AM ROD CUP FILLER - 11/06/2023 11:59 PM ROD CUP FILLER Hospital Encounter Department of Radiation Oncology in [address] [address] Radha Elena M.D. Discharge Disposition: Home or Self Care 11/05/2023 11:47 AM ROD CUP FILLER - 11/05/2023 11:59 PM ROD CUP FILLER Hospital Encounter Department of Radiation Oncology in [address] [address] Radha Elena M.D. Discharge Disposition: Home or Self Care 11/02/2023 9:50 AM ROD CUP FILLER - 11/02/2023 11:39 AM ROD CUP FILLER Hospital Encounter Department of Radiation Oncology in [address] [address] Lorne Castillo M.D. Cancer Breast Ductal In Situ Right 11/02/2023 9:50 AM ROD CUP FILLER - 11/02/2023 11:05 AM ROD CUP FILLER Hospital Encounter Department of Radiation Oncology in [address] [address] Radha Elena M.D. Grieman, Kari A, R.N. Cancer Breast Ductal In Situ Right Discharge Disposition: Home or Self Care 11/02/2023 9:49 AM ROD CUP FILLER Hospital Encounter Department of Radiation Oncology in [address] [address] Radha Elena M.D. Discharge Disposition: Home or Self Care 11/01/2023 10:01 AM ROD CUP FILLER - 11/01/2023 11:59 PM ROD CUP FILLER Hospital Encounter Department of Radiation Oncology in [address] [address] Radha Elena M.D. Discharge Disposition: Home or Self Care 10/31/2023 10:02 AM ROD CUP FILLER - 10/31/2023 11:59 PM ROD CUP FILLER Hospital Encounter Department of Radiation Oncology in [address] [address] Radha Elena M.D. Discharge Disposition: Home or Self Care 10/30/2023 10:03 AM ROD CUP FILLER - 10/30/2023 11:59 PM ROD CUP FILLER Hospital Encounter Department of Radiation Oncology [address] [address] Radha Elena M.D. Discharge Disposition: Home or Self Care 10/29/2023 12:45 PM ROD CUP FILLER - 10/29/2023 1:26 PM ROD CUP FILLER Hospital Encounter Department of Radiation Oncology [address] [address] Radha Elena M.D. Cancer Breast Ductal In Situ Right 10/29/2023 12:32 PM ROD CUP FILLER - 10/29/2023 12:44 PM ROD CUP FILLER Hospital Encounter Department of Radiation Oncology [address] [address] Radha Elena M.D. Discharge Disposition: Home or Self Care 10/26/2023 Clinical Communication Department of Radiation Oncology [address] [address] Radha Elena M.D. from Last 3 Months Allergies No known active allergies Medications Medication Sig Dispensed Refills Start Date End Date Status mometasone (ELOCON) 0.1 % ointment Apply 1 Application topically 2 (two) times a day. Apply to right breast. 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 Staging:Pathologic stage from 09/14/2023:Stage 0(pTis (DCIS), cN0, cM0, G1, ER+, VA: Unknown, HER2: Unknown) - Unsigned Immunizations Name [...] Comments Blood Pressure 118/58 10/22/2023 8:54 AM ROD CUP FILLER Pulse 71 10/22/2023 8:54 AM ROD CUP FILLER Temperature 36.7 ??C (98.1 ??F) 11/13/2023 9:29 AM CS T Respiratory Rate - - Oxygen Saturation - - Inhaled Oxygen Concentration - - Weight 72.6 kg (160 lb 0.9 oz) 11/13/2023 9:29 A M ROD CUP FILLER Height - - Body Mass Index - - Plan of Treatment Not on file Procedures Procedure Name Priority Date/Time Associated Diagnosis Comments ARIA COURSE COMPLETE TREATMENT INFORMATION Routine 11/16/2023 9:11 AM ROD CUP FILLER ARIA DAILY TREATMENT INFORMATION Routine 11/16/2023 9:11 AM ROD CUP FILLER ARIA DAILY TREATMENT INFORMATION Routine 11/15/2023 9:32 AM ROD CUP FILLER ARIA DAILY TREATMENT INFORMATION Routine 11/14/2023 9:17 AM ROD CUP FILLER ARIA DAILY TREATMENT INFORMATION Routine 11/13/2023 9:16 AM ROD CUP FILLER ARIA DAILY TREATMENT INFORMATION Routine 11/12/2023 9:22 AM ROD CUP FILLER ARIA DAILY TREATMENT INFORMATION Routine 11/09/2023 9:17 AM ROD CUP FILLER ARIA DAILY TREATMENT INFORMATION Routine 11/08/2023 9:17 AM ROD CUP FILLER ARIA DAILY TREATMENT INFORMATION Routine 11/07/2023 9:16 AM ROD CUP FILLER ARIA DAILY TREATMENT INFORMATION Routine 11/06/2023 9:35 AM ROD CUP FILLER ARIA DAILY TREATMENT INFORMATION Routine 11/05/2023 12:14 PM ROD CUP FILLER ARIA DAILY TREATMENT INFORMATION Routine 11/02/2023 10:16 AM ROD CUP FILLER ARIA DAILY TREATMENT INFORMATION Routine 11/01/2023 10:26 AM ROD CUP FILLER ARIA DAILY TREATMENT INFORMATION Routine 10/31/2023 10:21 AM ROD CUP FILLER ARIA DAILY TREATMENT INFORMATION Routine 10/30/2023 10:31 AM ROD CUP FILLER ARIA DAILY TREATMENT INFORMATION Routine 10/29/2023 1:38 PM ROD CUP FILLER OUTSIDE MG MAMMOGRAM Routine 09/14/2023 12:55 PM ROD CUP FILLER from Last 3 Months or Most Recently Relevant to Health Maintenance Results * Aria Course Complete Treatment Information (11/16/2023 9:11 AM ROD CUP FILLER) Course ID [id number] TEJADA ARIA Course Start Date 4 11:40 ROD CUP FILLER TEJADA ARIA Course End Date 4 15:22 ROD CUP FILLER TEJADA ARIA First Treatment Date 4 13:36 ROD CUP FILLER TEJADA ARIA Last Treatment Date 4 09:11 ROD CUP FILLER TEJADA ARIA Treatment Elapsed Days 18 TEJADA ARIA Reference Point [id number] TEJADA ARIA Dosage Given to Date cGy 4800 TEJADA ARIA Plan ID [id number] TEJADA ARIA Fractions Treated to Date 15 TEJADA ARIA Planned Total Fractions 15 TEJADA ARIA Prescribed Dose Per Fraction 320 TEJADA ARIA Prescription Dose in cGy 4800 TEJADA ARIA Plan Primary Reference Point [id number] TEJADA ARIA 11/16/2023 9:11 AM ROD CUP FILLER Provider Not In System RADIATION ONCOLOG Y ORDERABLES TERRELL COVARRUBIAS na * Aria Daily Treatment Information (11/16/2023 9:11 AM ROD CUP FILLER) Only the most recent of15 resultswithin the time period is included. Course ID [id number] TEJADA ARIA Course Start Date 4 11:40 ROD CUP FILLER TEJADA ARIA First Treatment Date 4 13:36 ROD CUP FILLER TEJADA ARIA Last Treatment Date 4 09:11 ROD CUP FILLER TEJADA ARIA Treatment Elapsed Days 18 TEJADA ARIA Reference Point [id number] TEJADA ARIA Dosage Given to Date cGy 4800 TEJADA ARIA Session Dosage Given 320 TEJADA ARIA Plan ID [id number] TEJADA ARIA Fractions Treated to Date 15 TEJADA ARIA Planned Total Fractions 15 TEJADA ARIA Prescribed Dose Per Fraction 320 TEJADA ARIA Prescription Dose in cGy 4800 TEJADA ARIA Plan Primary Reference Point [id number] TEJADA ARIA 11/16/2023 9:11 AM ROD CUP FILLER Provider Not In System RADIATION ONCOLOG Y ORDERABLES Performing Organization Address [facility] [facility] Co de Phone Number TERRELL COVARRUBIAS na * MM surgical specimen RT-Outside Mammogram (09/14/2023 12:55 PM ROD CUP FILLER) Narrative IIMS - 09/19/2023 2:27 PM ROD CUP FILLER This order has been created and auto-finalized to support the import of outside images. If available, original interpretation can be found on the Media Tab in Chart Review, in Document Viewer, or as an image in QREADS. If a re-interpretation or overread is required please follow defined workflow. ?? Provider Not In System IMG BI PROCEDURES IIMS NA from Last 3 Months or Most Recently Relevant to Health Maintenance
--- OUTSIDE RECORDS SUMMARY | 2024-01-23 09:49 | XMS_ITS | Encounter Summary ---
Author Name Unknown Organization [facility] Address [address] [place] [address] Care Team Providers Care Swimmer Name Role Phone Unavailable Primary Care Provider Unavailabl e Reason for Visit * Radiation Therapy (Routine) - Authorized Specialty Diagnoses / Procedures Referred By Contsanchez t Referred To Contact Diagnoses Cancer Breast Ductal In Situ Right Procedures Prior Auth Rad Tx CT RADTN TX DEL >=1 MEV COMPLEX 3D Radha Elena M.D. [address] [place] [address] [facility] Referral ID Status Reason Start Date Expiration Date V isits Requested Visits Authorized [id number] Authorized 10/10/2023 10/04/2024 19 19 Encounter Details Date Type Department Care Team (Latest Contact Info) Description 11/14/2023 9:04 AM GRINDER MILL OPERATOR - 11/14/2023 11:59 PM [facility] Hospital Encounter Department of Radiation Oncology in [place], [place] [address] [place] [phone] Radha Elena M.D. [address] [place] [address] Discharge Disposition: Home or Self Care Social [...] g 11/13/2023 documented as of this encounter Plan of Treatment Not on file documented as of this encounter Visit Diagnoses Not on filedocumented in this encounter
--- OUTSIDE RECORDS SUMMARY | 2024-01-23 09:49 | XMS_ITS ---
Author Name Unknown Organization [facility] Address [address] [place] [address] Care Team Providers Care Generalist Name Role Phone Unavailable Unavailable Unavailable Surgery Details Not on file Complications Check Surgery Details section. Procedure Estimated Blood Loss Check Surgery Details section. Procedure Findings Check Surgery Details section. Procedure Specimens Taken Check Surgery Details section.
--- OUTSIDE RECORDS SUMMARY | 2024-01-23 09:49 | XMS_ITS | Encounter Summary ---
Author Name Unknown Organization [facility] Address [address] [place] [address] Care Team Providers Care Rib Sawyer Name Role Phone Unavailable Primary Care Provider Unavailabl e Reason for Visit * Radiation Therapy (Routine) - Authorized Specialty Diagnoses / Procedures Referred By Contsanchez t Referred To Contact Diagnoses Cancer Breast Ductal In Situ Right Procedures Prior Auth Rad Tx [place] RADTN [place] DEL >=1 MEV COMPLEX 3D Radha Elena M.D. [address] [place] [address] [facility] Referral ID Status Reason Start Date Expiration Date V isits Requested Visits Authorized [id number] Authorized 10/10/2023 10/04/2024 19 19 Encounter Details Date Type Department Care Team (Latest Contact Info) Description 11/16/2023 9:00 AM SLEDGER - 11/16/2023 11:59 PM [facility] Hospital Encounter Department of Radiation Oncology in [place], [place] [address] [place] [phone] Radha Elena M.D. [address] [place] [phone] Discharge Disposition: Home or Self Care Social [...]
--- OUTSIDE RECORDS SUMMARY | 2024-01-23 09:49 | XMS_ITS | Encounter Summary ---
Author Name Unknown Organization [facility] Address [address] [place] [address] Care Team Providers Care Blanching Machine Operator Name Role Phone Unavailable Primary Care Provider Unavailabl e Reason for Visit * Radiation Therapy (Routine) - Authorized Specialty Diagnoses / Procedures Referred By Contsanchez t Referred To Contact Diagnoses Cancer Breast Ductal In Situ Right Procedures Prior Auth Rad Tx [place] RADTN TX DEL >=1 MEV COMPLEX 3D Radha Elena M.D. [address] [place] [address] [facility] Referral ID Status Reason Start Date Expiration Date V isits Requested Visits Authorized [id number] Authorized 10/10/2023 10/04/2024 19 19 Encounter Details Date Type Department Care Team (Latest Contact Info) Description 11/07/2023 8:58 AM CHIEF ENGINEER PRODUCTION - 11/07/2023 11:59 PM [facility] Hospital Encounter Department of Radiation Oncology in [place], [place] [address] [place] [phone] Radha Elena M.D. [address] [place] [phone] Discharge Disposition: Home or Self Care Social [...]
--- OUTSIDE RECORDS SUMMARY | 2024-01-23 09:49 | XMS_ITS | Encounter Summary ---
Author Name Unknown Organization [facility] Address [address] [place] [address] Care Team Providers Care Record Center Specialist Name Role Phone Unavailable Primary Care Provider Unavailabl e Reason for Visit * Radiation Therapy (Routine) - Authorized Specialty Diagnoses / Procedures Referred By Contsanchez t Referred To Contact Diagnoses Cancer Breast Ductal In Situ Right Procedures Prior Auth Rad Tx [place] RADTN TX DEL >=1 MEV COMPLEX 3D Radha Elena M.D. [address] [place] [address] [facility] Referral ID Status Reason Start Date Expiration Date V isits Requested Visits Authorized [id number] Authorized 10/10/2023 10/04/2024 19 19 Encounter Details Date Type Department Care Team (Latest Contact Info) Description 11/15/2023 9:12 AM BOARD CERTIFIED BEHAVIORAL ANALYST - 11/15/2023 11:59 PM [facility] Hospital Encounter Department of Radiation Oncology in [place], [place] [address] [place] [address] Radha Elena M.D. [address] [place] [address] Discharge Disposition: Home or Self Care Social [...]
--- OUTSIDE RECORDS SUMMARY | 2024-01-23 09:49 | XMS_ITS | Encounter Summary ---
Author Name Unknown Organization [facility] Address [address] [place] [address] Care Team Providers Care Street Supervisor Name Role Phone Unavailable Primary Care Provider Unavailabl e Reason for Visit * Radiation Therapy (Routine) - Authorized Specialty Diagnoses / Procedures Referred By Anton t Referred To Contact Diagnoses Cancer Breast Ductal In Situ Right Procedures Prior Auth Rad Tx [place] RADTN TX DEL >=1 MEV COMPLEX 3D Radha Elena M.D. [address] [place] [address] [facility] Referral ID Status Reason Start Date Expiration Date V isits Requested Visits Authorized [id number] Authorized 10/10/2023 10/04/2024 19 19 Encounter Details Date Type Department Care Team (Latest Contact Info) Description 11/13/2023 9:01 AM [facility] Hospital Encounter Department of Radiation Oncology in [place], [place] [address] [place] [address] Radha Elena M.D. [address] [place] [address] Discharge Disposition: Home or Self Care Social [...]
--- OUTSIDE RECORDS SUMMARY | 2024-01-23 09:50 | XMS_ITS | Encounter Summary ---
Author Name Unknown Organization [facility] Address [address] [place] [address] Care Team Providers Care Custom Ski Maker Name Role Phone Unavailable Primary Care Provider Unavailabl e Reason for Visit * Radiation Therapy (Routine) - Authorized Specialty Diagnoses / Procedures Referred By Contsanchez t Referred To Contact Diagnoses Cancer Breast Ductal In Situ Right Procedures Prior Auth Rad Tx [place] RADTN TX DEL >=1 MEV COMPLEX 3D Radha Elena M.D. [address] [place] [address] [facility] Referral ID Status Reason Start Date Expiration Date V isits Requested Visits Authorized [id number] Authorized 10/10/2023 10/04/2024 19 19 Encounter Details Date Type Department Care Team (Latest Contact Info) Description 10/30/2023 10:03 AM PROCUREMENT INTERNSHIP - 10/30/2023 11:59 PM [facility] Hospital Encounter Department of Radiation Oncology in [place], [place] [address] [place] [address] Radha Elena M.D. [address] [place] [address] Discharge Disposition: Home or Self Care Social [...]
--- OUTSIDE RECORDS SUMMARY | 2024-01-23 09:50 | XMS_ITS | Encounter Summary ---
Author Name Unknown Organization [facility] Address [address] [place] [address] Care Team Providers Care Insurance Account Manager Name Role Phone Unavailable Primary Care Provider Unavailabl e Reason for Referral * Radiation Therapy (Routine) - Closed Specialty Diagnoses / Procedures Referred By Anton cesar Referred To Contact Diagnoses Cancer Breast Ductal In Situ Right Procedures Initial Rad Onc Treatment Planning CT Simulation Radha Elena M.D. [address] [place] [address] [facility] Region Referral ID Status Reason Start Date Expiration Date Visits Re quested Visits Authorized [id number] Closed 10/05/2023 10/04/2024 1 1 OLOGY SPECIAL PROCEDURE TECH Reason for Visit * Radiation Therapy (Routine) - Closed Specialty Diagnoses / Procedures Referred By Anton cesar Referred To Contact Diagnoses Cancer Breast Ductal In Situ Right Procedures Initial Rad Onc Treatment Planning CT Simulation Radha Elena M.D. [address] [place] [address] [facility] Region Referral ID Status Reason Start Date Expiration Date Visits Re quested Visits Authorized [id number] Closed 10/05/2023 10/04/2024 1 1 Encounter Details Date Type Department Care Team (Latest Contact Info) Description 10/22/2023 9:30 AM RADIOLOGY SPECIAL PROCEDURE TECH - 10/22/2023 2:49 PM RADIOLOGY SPECIAL PROCEDURE TECH Hospital Encounter Department of Radiation Oncology in [address] [address] Radha Elena M.D. [address] [place] [address] Cancer Breast Ductal In Situ Right Social [...] on file documented as of this encounter Procedure Notes * Claudine Izaguirre, RTT - 10/22/2023 9:30 AM CSTAssociated Order(s): Initial Rad Onc Treatment Planning CT Simulation Pre-Procedure Diagnose(s): Cancer Breast Ductal In Situ Right Post-Procedure Diagnose(s): Cancer Breast Ductal In Situ Right Initial Rad Onc Treatment Planning CT Simulation Performed by: Radha Elena M.D. Authorized by: Radha Elena M.D. Simulation was performed under physician supervision based on physician order in preparation for radiation therapy. Physician was immediately available to provide assistance and direction throughout the procedure. Written consent for treatment was completed or confirmed. The patient was appropriately identified and placed in the treatment position using the necessary immobilization to ensure a reproducible treatment position. Reference chao were placed to facilitate marking of isocenter. Area scanned:Neck and Chest Contrast used for the simulation procedure: None Patient position:head first supine and arms up Custom immobilization: Vac-wilner Motion management: None Bolus: No CT guidance: Following positioning of the patient, a series of slices was obtained to be utilized in treatment planning. CT images were transferred to the Klick[employer] treatment planning system, after a reference isocenter was determined and marked. Segmentation and treatment planning will take place prior to treatment delivery. Patient set up and imaging was appropriate and completed without incident. Deck Officer use:No OLOGY SPECIAL PROCEDURE TECH Associated attestation - Radha Elena M.D. - 10/22/2023 2:49 PM RADIOLOGY SPECIAL PROCEDURE TECH I was present during all critical and royal portions of the procedure(s) and immediately available [facility] the entire duration. See note for details. documented in this encounter Plan of Treatment Not on file documented as of this encounter Procedures Procedure Name Priority Date/Time Associated Diagnosis Comments INITIAL RAD ONC TREATMENT PLANNING CT SIMULATION Routine 10/22/2023 9:30 AM RADIOLOGY SPECIAL PROCEDURE TECH Cancer Breast Ductal In Situ Right documented in this encounter Results * Initial Rad Onc Treatment Planning CT Simulation (10/22/2023 9:30 AM RADIOLOGY SPECIAL PROCEDURE TECH) Narrative TERRELL COVARRUBIAS - 10/22/2023 9:30 AM RADIOLOGY SPECIAL PROCEDURE TECH Claudine Izaguirre, RTT ? 10/22/2023 10:21 AM Initial Rad Onc Treatment Planning CT Simulation Performed by: Radha Elena M.D. Authorized by: Radha Elena M.D. ?? Radha Elena M.D. RADIATION ONCOLOG Y ORDERABLES TERRELL COVARRUBIAS na documented in this encounter Visit Diagnoses Diagnosis Cancer Breast Ductal In Situ Right documented in this encounter
--- OUTSIDE RECORDS SUMMARY | 2024-01-23 09:50 | XMS_ITS | Encounter Summary ---
Author Name Unknown Organization [facility] Address [address] [place] [address] Care Team Providers Care Children'S Attendant Name Role Phone Unavailable Primary Care Provider Unavailabl e Reason for Visit * Radiation Therapy (Routine) - Authorized Specialty Diagnoses / Procedures Referred By Contsanchez t Referred To Contact Diagnoses Cancer Breast Ductal In Situ Right Procedures Prior Auth Rad Tx [place] RADTN TX DEL >=1 MEV COMPLEX 3D Radha Elena M.D. [address] [place] [address] [facility] Referral ID Status Reason Start Date Expiration Date V isits Requested Visits Authorized [id number] Authorized 10/10/2023 10/04/2024 19 19 Encounter Details Date Type Department Care Team (Latest Contact Info) Description 11/01/2023 10:01 AM MECHANICAL SYSTEMS DESIGN ENGINEER - 11/01/2023 11:59 PM [facility] Hospital Encounter Department of Radiation Oncology in [place], [place] [address] [place] [address] Radha Elena M.D. [address] [place] [address] Discharge Disposition: Home or Self Care Social [...]
--- OUTSIDE RECORDS SUMMARY | 2024-01-23 09:50 | XMS_ITS | Encounter Summary ---
Author Name Unknown Organization [facility] Address [address] [place] [address] Care Team Providers Care Field Merchandiser Name Role Phone Unavailable Primary Care Provider Unavailabl e Reason for Referral * Outpatient (Routine) - Closed Specialty Diagnoses / Procedures Referred By Contac t Referred To Contact Radiation Oncology Radha Elena M.D. [address] [place] [address] [facility] Referral ID Status Reason Start Date Expiration Date Visits Re quested Visits Authorized [id number] Closed 10/05/2023 04/05/2025 1 1 X SERVER ENGINEER Reason for Visit * Outpatient (Routine) - Closed Specialty Diagnoses / Procedures Referred By Anton cesar Referred To Contact Radiation Oncology Radha Elena M.D. [address] [place] [address] [facility] Referral ID Status Reason Start Date Expiration Date Visits Re quested Visits Authorized [id number] Closed 10/05/2023 04/05/2025 1 1 Encounter Details Date Type Department Care Team (Latest Contact Info) Description 10/22/2023 8:42 AM LINUX SERVER ENGINEER - 10/22/2023 9:29 AM LINUX SERVER ENGINEER Hospital Encounter Department of Radiation Oncology in [place], [place] [address] [place] [phone] Radha Elena M.D. [address] [place] [address] Cancer Breast Ductal In Situ Right (Primary [...] Comments Blood Pressure 118/58 10/22/2023 8:54 AM LINUX SERVER ENGINEER Pulse 71 10/22/2023 8:54 AM LINUX SERVER ENGINEER Temperature 36.7 ??C (98 ??F) 10/22/2023 8:54 AM LINUX SERVER ENGINEER Respiratory Rate - - Oxygen Saturation - - Inhaled Oxygen Concentration - - Weight 74 kg (163 lb 2.3 oz) 10/22/2023 8:54 AM LINUX SERVER ENGINEER Height - - Body Mass Index - - documented in this encounter Progress Notes * Evi Mott P.A.-Josette., M.S. - 10/22/2023 9:00 AM CST SUBJECTIVE DIAGNOSIS 1. Cancer Breast Ductal In Situ Right SUPERVISED BY: Radha Elena M.D. HISTORY OF PRESENT ILLNESS Ms. 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 Her oncologic history is as follows: Oncology [...] Strong 09/19/2023 Other Follow up with Dr. Coned to review path results. Dr. Conde discussed [...] complete this prior to radiationtreatment. 10/02/[address] Harry in Medical Oncology who discussed endocrine therapy with tamoxifen withinitiation after the completion of radiation therapy. 10/10/2023 Critical Imaging MRI Bilateral Breast IMPRESSIONS AND RECOMMENDATIONS: Post surgical changes of the RIGHT inferior breast with a 1.6 x 0.5 cm postoperative fluid collection. No suspicious enhancement in either breast. No morphologically abnormal axillary lymph nodes. 10/16/2023 Genetic Testing and Tumor Genotyping TEST PERFORMED: Hereditary Breast Cancer STAT panel (9 genes) via [employer]. Includes the ROXIE, BRCA1, BRCA2, CDH1, CHEK2, PALB2, PTEN, STK11, and TP53 genes. Please see scanned test report for details regarding testing methodologies. RESULT: NEGATIVE No clinically-actionable (pathogenic) mutations or other reportable variants were detected in the genes analyzed. 10/29/2023 - Radiation Therapy Radiation Therapy Treatment Details (Noted on 10/05/2023) Site: Right Breast Technique: No technique specified Goal: Curative Planned Treatment Start Date: 10/29/2023 INTERVAL HISTORY: The patient was seen and examined today with Dr. Elena. The patient reports doing well overall. She denies fatigue. She reports healing well overall following surgery. She reports still experiencing some discomfort at times within the right breast, but denies gamal pain. She also reports that a small stitch might be poking through at the incisional site. She denies any open areas along the incision or any signs of infection. She reports a cosmetic defe ct at the surgical site. REVIEW OF SYSTEMS Review of systems was [...] = as good as can be): 10 PHYSICAL EXAMINATION General: Alert and oriented, in no apparent distress. ASSESSMENT / PLAN #1 Stage 0 (pTis (DCIS), cN0, cM0, G1, ER+) ductal carcinoma in situ of the right breast s/p right breast excisional biopsy on September 14, 2023 with a close (<1 mm) inferior margin The patient returns today for a follow-up visit prior to planned CT simulation for radiation therapy planning. Since her last visit here she had a breast MRI performed. We reviewed the report of her breast MRI that demonstrated post- surgical changes of the right breast with a post-operative fluid collection. There was no suspicious enhancement in either breast. No morphologically abnormal axillary lymph nodes. The patient reports that Dr. Conde previously called her with the results of the MRI,but she does not have a scheduled follow- up appointment with Dr. Conde at this time. The patient states that she is leaning towards not proceeding with additional surgery at this time. We again had a discussion regarding radiation therapy in this setting. If the patient decides to not proceed with additional surgery, then Dr. Elena recommends radiation therapy to the right breast in 15 fractions with a simultaneous or sequential boost to the lumpectomy cavity. I briefly reviewed the logistics as well as the acute side effects of radiotherapy. For a complete listing of these, please see my consultation note from September 27, 2023. The use of mometasone creamand a moisturizing lotion applied to the skin within the treatment field during treatment was discussed. A prescription for mometasone cream will be sent to her preferred pharmacy. Her questions wereanswered to her verbalized satisfaction. Dr. Elena also met with the patient today, please see her attestation for details. After their discussion, the patient decided to proceed with radiation therapy at this time. She is scheduled for CTsimulation today. The patient was provided with our contact information. She will contact us with questions or concerns. She verbally expressed her understanding of the plan. EDUCATION: Ready to learn, no apparent learning barriers were identified; learning preferences include listening. Explained diagnosis and treatment plan; patient expressed understanding of the content. I personally spent 23 minutes in care of the patient today. Time includes both non face to face andface to face patient care. Signed by: Evi Mott P.A.-C., MBrandonSBrandon 10/22/2023 9:54 AM LINUX SERVER ENGINEER [facility] [address] [place] [address] X SERVER ENGINEER Associated attestation - Radha Elena M.D. - 10/22/2023 2:44 PM LINUX SERVER ENGINEER RADIATION ONCOLOGY FOLLOW-UP VISIT I saw and evaluated the patient and participated in the royal portions of the service. I reviewed thedocumentation of Ms. Evi Mott PA-C, and agree with the findings and plan. Please see Ms. Wongf's detailed note for the patient's initial presentation [...] 1mm. Her tumor was ER positive. She met with Dr. Harry on 10/02/23. She had an MRI performed on 10/10/2023 and this showed a 1.6 X 0.5cm area of post surgical changes in the right inferior breast with no suspicious enhancement or lymph nodes. She presents now to discuss radiation t herapy again and is leaning towards no additional surgery. On exam, she appears well. Her breasts are symmetric. She has a very well healed right libertad-areolarincision. I do not appreciate a lumpectomy cavity or seroma. She has no worrisome skin changes, lumps, masses or nipple discharge bilaterally. We discussed the findings above and below in this note with the patient. We again discussed her treatment alternatives including more surgery to obtain a wider margin vs adjuvant radiation now for her negative, but less than 1 mm margin. We again discussed 5 vs 15 fractions as well as mini-tangents vs standard whole breast tangents. She is not wanting additional surgery unless I cannot identifythe surgical cavity for boosting on our planning scan; in which case I would call the patient. We discussed the rationale, risks, side effects and goals of radiation therapy. We discussed the rationale, risks, side effects and adjuvant goals of radiation therapy. We discussed the acute as wellas chcf risks, including, but not limited to fatigue, skin erythema/desquamation, fibrosis of the breast, small risks of bone fracture, radiation pneumonitis, cardiac disease, and secondary malignancies. She understood and her questions were answered. She wished to proceed with treatment. We tentatively plan on delivering 4005/4800 cGy in 15 fractions starting October 29, 2023. I explained that we can do a simultaneous integrated boost for her boost and she would not have to have 19 fractions. My thanks to Piero Hewitt, and Stacey [...] inferior margin Signed by: Radha Elena M.D. 10/22/2023 1:47 PM LINUX SERVER ENGINEER documented in this encounter Plan of Treatment Scheduled Referrals Name Type Priority Associated Diagnoses Order Schedule Radiation Oncology office visit (clinic) Outpatient Referral Routine Once for 1 Occurrences starting 10/22/2023 until 10/22/2023 documented as of this encounter Visit Diagnoses Diagnosis Cancer Breast Ductal In Situ Right- Primary documented in this encounter
--- OUTSIDE RECORDS SUMMARY | 2024-01-23 09:50 | XMS_ITS | Encounter Summary ---
Author Name Unknown Organization [facility] Address [address] [place] [address] Care Team Providers Care Pot Fisher Name Role Phone Unavailable Primary Care Provider Unavailabl e Reason for Visit * Radiation Therapy (Routine) - Authorized Specialty Diagnoses / Procedures Referred By Contsanchez t Referred To Contact Diagnoses Cancer Breast Ductal In Situ Right Procedures Prior Auth Rad Tx [place] RADTN TX DEL >=1 MEV COMPLEX 3D Radha Elena M.D. [address] [place] [address] [facility] Referral ID Status Reason Start Date Expiration Date V isits Requested Visits Authorized [id number] Authorized 10/10/2023 10/04/2024 19 19 Encounter Details Date Type Department Care Team (Latest Contact Info) Description 10/29/2023 12:32 PM HEAD OF HUMAN RESOURCES - 10/29/2023 12:44 PM [facility] Hospital Encounter Department of Radiation Oncology in [place], [place] [address] [place] [phone] Radha Elena M.D. [address] [place] [phone] Discharge Disposition: Home or Self Care Social [...]
--- OUTSIDE RECORDS SUMMARY | 2024-01-23 09:50 | XMS_ITS | Encounter Summary ---
Author Name Unknown Organization [facility] Address [address] [place] [address] Care Team Providers Care Head Stock Operator Name Role Phone Unavailable Primary Care Provider Unavailabl e Reason for Referral * Specialty Diagnoses / Procedures Referred By Anton cesar Referred To Contact Radha Elena M.D. [address] [place] [address] [facility] Referral ID Status Reason Start Date Expiration Date Visits Re quested Visits Authorized RITY INCIDENT RESPONSE ENGINEER Encounter Details Date Type Department Care Team (Latest Contact Info) Description 11/02/2023 9:50 AM SECURITY INCIDENT RESPONSE ENGINEER - 11/02/2023 11:05 AM SECURITY INCIDENT RESPONSE ENGINEER Hospital Encounter Department of Radiation Oncology in [place], [place] [address] [place] [phone] Radha Elena M.D. [address] [place] [phone] Latanya Schwartz R.N. [address] [place] [phone] Cancer Breast Ductal In Situ Right Discharge Disposition: Home or Self Care Social [...] Pressure - - Pulse - - Temperature - - Respiratory Rate - - Oxygen Saturation - - Inhaled Oxygen Concentration - - Weight 72.7 kg (160 lb 4.4 oz) 11/02/2023 11:00 AM SECURITY INCIDENT RESPONSE ENGINEER Height - - Body Mass Index - - documented in this encounter Medications at Time of Discharge Medication Sig Dispensed Refills Start Date End Date mometasone (ELOCON) 0.1 % ointment Apply 1 Application topically 2 (two) times a day. Apply to right breast. 45 g 10/26/2023 11/13/2023 documented as of this encounter Progress Notes * Latanya Schwartz RMary. - 11/02/2023 10:30 AM CST Patient was educated on side effects of radiation therapy. Their questions were answered to the best of my ability. The patient was encouraged to contact the team at any point, with questions or concerns. RITY INCIDENT RESPONSE ENGINEER documented in this encounter Plan of Treatment Scheduled Referrals Name Type Priority Associated Diagnoses Order Schedule Radiation Oncology - Nurse education visit (clinic) Outpatient Referral Routine Cancer Breast Ductal In Situ Right Once for 1 Occurrences starting 11/02/2023 until 11/02/2023 documented as of this encounter Visit Diagnoses Diagnosis Cancer Breast Ductal In Situ Right documented in this encounter
--- OUTSIDE RECORDS SUMMARY | 2024-01-23 09:50 | XMS_ITS | Encounter Summary ---
Author Name Unknown Organization [facility] Address [address] [place] [address] Care Team Providers Care Personal Lines Account Executive Name Role Phone Unavailable Primary Care Provider Unavailabl e Reason for Referral * Outpatient (Routine) - Closed Specialty Diagnoses / Procedures Referred By Contac t Referred To Contact Radiation Oncology Radha Elena M.D. [address] [place] [address] [facility] Region Referral ID Status Reason Start Date Expiration Date Visits Re quested Visits Authorized [id number] Closed 10/05/2023 04/05/2025 1 1 OR TELECOMMUNICATIONS TECHNICIAN * Radiation Therapy (Routine) - Authorized Specialty Diagnoses / Procedures Referred By Contac t Referred To Contact Diagnoses Cancer Breast Ductal In Situ Right Procedures Management Visit Radha Elena M.D. [address] [place] [address] [facility] Region Referral ID Status Reason Start Date Expiration Date V isits Requested Visits Authorized [id number] Authorized 10/05/2023 10/04/2024 10 10 OR TELECOMMUNICATIONS TECHNICIAN * Radiation Therapy (Routine) - Authorized Specialty Diagnoses / Procedures Referred By Contac t Referred To Contact Diagnoses Cancer Breast Ductal In Situ Right Procedures Prior Auth Rad Tx [place] RADTN TX DEL >=1 MEV COMPLEX 3D Radha Elena M.D. [address] [place] [address] [facility] Referral ID Status Reason Start Date Expiration Date V isits Requested Visits Authorized [id number] Authorized 10/10/2023 10/04/2024 19 19 OR TELECOMMUNICATIONS TECHNICIAN * Radiation Therapy (Routine) - Closed Specialty Diagnoses / Procedures Referred By Anton t Referred To Contact Diagnoses Cancer Breast Ductal In Situ Right Procedures Initial Rad Onc Treatment Planning CT Simulation Radha Elena M.D. [address] [place] [phone] [facility] Referral ID Status Reason Start Date Expiration Date Visits Re quested Visits Authorized [id number] Closed 10/05/2023 10/04/2024 1 1 OR TELECOMMUNICATIONS TECHNICIAN Encounter Details Date Type Department Care Team (Late st Contact Info) Description 10/05/2023 Orders Only Department of Radiation Oncology in [place], [place] [address] [place] [address] Radha Elena M.D. [address] [place] [phone] Cancer Breast Ductal In Situ Right (Primary [...] as of this encounter Plan of Treatment Scheduled Orders Name Type Priority Associated Diagnoses Order Schedule Prior Auth Rad Tx Radiation Oncology Routine Cancer Breast Ductal In Situ Right Ordered: 10/05/2023 Management Visit Radiation Oncology Routine Cancer Breast Ductal In Situ Right 10 Occurrences starting 10/05/2023 until 10/05/2024 Scheduled Referrals Name Type Priority Associated Diagnoses Orde r Schedule Radiation Oncology office visit (clinic) Outpatient Referral Routine Expected: 10/12/2023 (Approximate), Expires: 10/05/2024 documented as of this encounter Results * Initial Rad Onc Treatment Planning CT Simulation (10/22/2023 9:30 AM SENIOR TELECOMMUNICATIONS TECHNICIAN) Narrative TERRELL COVARRUBIAS - 10/22/2023 9:30 AM SENIOR TELECOMMUNICATIONS TECHNICIAN Claudine Izaguirre, RTT ? 10/22/2023 10:21 AM Initial Rad Onc Treatment Planning CT Simulation Performed by: Radha Elena M.D. Authorized by: Radha Elena M.D. ?? Radha Elena M.D. RADIATION ONCOLOG Y ORDERABLES TERRELL COVARRUBIAS na documented in this encounter Visit Diagnoses Diagnosis Cancer Breast Ductal In Situ Right- Primary Cancer Breast Ductal In Situ Right documented in this encounter
--- OUTSIDE RECORDS SUMMARY | 2024-01-23 09:50 | XMS_ITS | Encounter Summary ---
Author Name Unknown Organization [facility] Address [address] [place] [address] Care Team Providers Care Milling Machine Set Up Operator Name Role Phone Unavailable Primary Care Provider Unavailabl e Reason for Visit * Radiation Therapy (Routine) - Authorized Specialty Diagnoses / Procedures Referred By Contsanchez t Referred To Contact Diagnoses Cancer Breast Ductal In Situ Right Procedures Prior Auth Rad Tx [place] RADTN TX DEL >=1 MEV COMPLEX 3D Radha Elena M.D. [address] [place] [address] [facility] Referral ID Status Reason Start Date Expiration Date V isits Requested Visits Authorized [id number] Authorized 10/10/2023 10/04/2024 Encounter Details Date Type Department Care Team (Latest Contact Info) Description 11/05/2023 11:47 AM LPN RN - 11/05/2023 11:59 PM [facility] Hospital Encounter Department of Radiation Oncology in [place], [place] [address] [place] [phone] Radha Elena M.D. [address] [place] [phone] Discharge Disposition: Home or Self Care Social [...]
--- OUTSIDE RECORDS SUMMARY | 2024-01-23 09:50 | XMS_ITS | Clinical Summary ---
Author Name Unknown Organization [employer] [facility] Address [place], [place] [address] Care Team Providers Care Petroleum Laboratory Technician Name Role Phone Pcp, No Primary Care Provider Unavailabl e Allergies No known active allergies Medications No known medications Active Problems No known active problems Encounters Date Type Department Care Team Description 10/25/2023 Telephone [facility] [address] [place] [address] Marya Solomon, , [facility] Results (Cancer genetic testing - FINAL results) from Last 3 Months Social History Tobacco Use Types Packs/Day Years Used Date Smoking Tobacco: Never Assessed Sex and Gender Information Value Date Recorded Sex Assigned at Not on file Gender Identity Not on file Sexual Orientation Not on file Obstetrics History Last Filed Vital Signs Vital Sign Reading Time Taken Comments Blood Pressure 110/64 11/20/2015 1:10 PM INSTRUCTIONAL TECHNOLOGY FACILITATOR Pulse 60 11/20/2015 1:10 PM INSTRUCTIONAL TECHNOLOGY FACILITATOR Temperature 36.9 ??C (98.4 ??F) 11/20/2015 1:10 PM CS T Respiratory Rate - - Oxygen Saturation - - Inhaled Oxygen Concentration - - Weight 85.3 kg (188 lb) 11/20/2015 1:10 PM INSTRUCTIONAL TECHNOLOGY FACILITATOR Height - - Body Mass Index - - Plan of Treatment Health Maintenance Due Date Last Done Comments Tdap 1992 Depression screening for age 12+ 1993 HIV for age 15-65 1996 BMI (ht and wt on same day) for age 18+ 1999 Hepatitis C screening for age 18-79 1999 Tetanus booster 2001 COVID-19 vaccine series (2022-24 season) 2023 Influenza for age 9-49 05/18/2024 Pap test for age 21-65 03/13/2026 , 03/13/2023, 04/05/2016, Additional history exists Pneumococcal series for age 6-64 Aged Out No longer eligible based on patient's age to complete this topic Procedures Procedure Name Priority Date/Time Associated Diagnosis Comments HPV THIN PREP Routine 03/13/2023 12:00 PM CDT from Last 3 Months or Most Recently Relevant to Health Maintenance Results * HPV HIGH RISK (03/13/2023 12:00 PM CDT) TYPE 16 Negative Negative 03/22/2023 5:17 PM CDT [facility] TYPE 18 Negative Negative 03/22/2023 5:17 PM CDT [facility] OTHER HIGH RISK TYPES Negative Negative 03/22/2023 5:17 PM CDT [facility] TR[facility]ORY Other (Cervical) 03/13/2023 12:00 PM CDT 03/19/2023 12:21 PM CDT Narrative [facility] - 03/22/2023 5:17 PM CDT HPV types 16, 18, 31, 33, 35, 39, 45, 51, 52, 56, 58, 59, 66 and 68 DNA were undetectable or below the pre-set threshold. Methodology: Lyudmila Stef 4800 HPV Test December [employer] [facility] [employer] [facility] [address] [place] [address], [place] from Last 3 Months or Most Recently Relevant to Health Maintenance Care Teams Petroleum Laboratory Technician Relationship Specialty Start Date End Date Pcp, No . PCP - General 11/20/15
--- OUTSIDE RECORDS SUMMARY | 2024-01-23 09:50 | XMS_ITS | Encounter Summary ---
Author Name Unknown Organization [facility] Address [address] [place] [address] Care Team Providers Care Separator Operator Name Role Phone Unavailable Primary Care Provider Unavailabl e Reason for Visit * Radiation Therapy (Routine) - Authorized Specialty Diagnoses / Procedures Referred By Contsanchez t Referred To Contact Diagnoses Cancer Breast Ductal In Situ Right Procedures Prior Auth Rad Tx [place] RADTN TX DEL >=1 MEV COMPLEX 3D Radha Elena M.D. [address] [place] [address] [facility] Referral ID Status Reason Start Date Expiration Date V isits Requested Visits Authorized [id number] Authorized 10/10/2023 10/04/2024 19 19 Encounter Details Date Type Department Care Team (Latest Contact Info) Description 11/06/2023 9:25 AM TRAIN CONTROL ELECTRONIC TECHNICIAN - 11/06/2023 11:59 PM [facility] Hospital Encounter Department of Radiation Oncology in [place], [place] [address] [place] [phone] Radha Elena M.D. [address] [place] [phone] Discharge Disposition: Home or Self Care Social [...]
--- OUTSIDE RECORDS SUMMARY | 2024-01-23 09:50 | XMS_ITS | Encounter Summary ---
Author Name Unknown Organization [facility] Address [address] [place] [address] Care Team Providers Care Precision Dyer Name Role Phone Unavailable Primary Care Provider Unavailabl e Reason for Referral * Radiation Therapy (Routine) - Authorized Specialty Diagnoses / Procedures Referred By Bestac t Referred To Contact Diagnoses Cancer Breast Ductal In Situ Right Procedures Management Visit Radha Elena M.D. [address] [place] [address] [facility] Region Referral ID Status Reason Start Date Expiration Date V isits Requested Visits Authorized [id number] Authorized 10/05/2023 10/04/2024 10 10 NURSE Reason for Visit * Radiation Therapy (Routine) - Authorized Specialty Diagnoses / Procedures Referred By Anton cesar Referred To Contact Diagnoses Cancer Breast Ductal In Situ Right Procedures Management Visit Radha Elena M.D. [address] [place] [address] [facility] Region Referral ID Status Reason Start Date Expiration Date V isits Requested Visits Authorized [id number] Authorized 10/05/2023 10/04/2024 10 10 Encounter Details Date Type Department Care Team (Latest Contact Info) Description 11/02/2023 9:50 AM BURN NURSE - 11/02/2023 11:39 AM BURN NURSE Hospital Encounter Department of Radiation Oncology in [place], [place] [address] [place] [phone] Lorne Castillo M.D. [address] [place] [address] Cancer Breast Ductal In Situ Right Social [...] Pressure - - Pulse - - Temperature 36.3 ??C (97.4 ??F) 11/02/2023 10:[address] Respiratory Rate - - Oxygen Saturation - - Inhaled Oxygen Concentration - - Weight 72.7 kg (160 lb 4.4 oz) 11/02/2023 10:24 AM BURN NURSE Height - - Body Mass Index - - documented in this encounter Medications at Time of Discharge Medication Sig Dispensed Refills Start Date End Date mometasone (ELOCON) 0.1 % ointment Apply 1 Application topically 2 (two) times a day. Apply to right breast. 45 g 10/26/2023 11/13/2023 documented as of this encounter Progress Notes * Lorne Castillo M.D. - 11/02/2023 11:00 AM CST SUBJECTIVE REASON FOR VISIT Evaluation for side effects while receiving radiation treatment for 1. Cancer Breast Ductal In Situ Right SUPERVISED BY: Lorne Castillo M.D. ([id number]) HISTORY OF PRESENT ILLNESS Ms. Kari Cantu is a 43 y.o. female with resected right breast DCIS. Patient is now undergoing radiation therapy. Treatment Course: 1xBreast Plan ID Fractions Dose / Fraction (cGy) Dose Treated (cGy) Dose Planned (cGy) First Treatment Last Treatment Elapsed Days [id number] 320 [id number] 4800 10/29/2023 11/02/2023 4 Course Summary 10/29/2023 11/02/2023 4 The patient was seen and examined today with Dr. Castillo. The patient reports 0-1 out of 10 right breast discomfort. Patient is applying mometasone twice a day to right breast. PATIENT REPORTED SYMPTOM SCREEN FATIGUE (Scale: 0 = no fatigue; 10 = worst fatigue you can imagine): PAIN (Scale: 0 = no pain; 10 = worst pain you can imagine): 0-1 OVERALL QUALITY OF LIFE (Scale: 0 = as bad as can be; 10 = as good as can be): OBJECTIVE Temp 36.3 ??C (Temporal) Wt 72.7 kg PHYSICAL EXAM General: Alert and oriented in no apparent distress. ASSESSMENT / PLAN [...] twice a day to the left breast. Nurse education visit was completed today. She will contact us with any questions or concerns. We will continue with radiation treatment as planned. Signed by: Latanya Schwartz R.N. 11/02/2023 11:05 AM BURN NURSE I saw and evaluated the patient and participated in the royal portions of the service. I reviewed thedocumentation of Latanya Schwartz R.N. and agree with the findings and plan. The patient appears well on exam. She is tolerating treatment well. She will continue with treatment as planned. Signed by: Lorne Castillo M.D. 11/02/2023 11:39 AM BURN NURSE [facility] [address] [place], [place] [id number] NURSE documented in this encounter Plan of Treatment Scheduled Orders Name Type Priority Associated Diagnoses Orde r Schedule Management Visit Radiation Oncology Routine Cancer Breast Ductal In Situ Right Once for 1 Occurrences starting 11/02/2023 until 11/02/2023 documented as of this encounter Visit Diagnoses Diagnosis Cancer Breast Ductal In Situ Right documented in this encounter
--- OUTSIDE RECORDS SUMMARY | 2024-01-23 09:50 | XMS_ITS | Encounter Summary ---
Author Name Unknown Organization [facility] Address [address] [place] [address] Care Team Providers Care Exhibits Curator Name Role Phone Unavailable Primary Care Provider Unavailabl e Encounter Details Date Type Department Care Team (Late st Contact Info) Description 10/26/2023 Clinical Communication Department of Radiation Oncology in [place], [place] [address] [place] [phone] Radha Elena M.D. [address] [place] [address] Social History Tobacco Use Types Packs/Day Years [...] as of this encounter Miscellaneous Notes * Telephone Encounter - Latanya Schwartz RDeng - 10/26/2023 10:11 AM COD CLERK Patient's preferred pharmacy is [facility] in [place], [place]. Mometasone prescription will be sent topatient's preferred pharmacy today. CLERK * Telephone Encounter - Yany Miramontes - 10/26/2023 9:46 AM CST Patient called and has questions in regards to her treatments that we are not able to answer, she would like them answered before her treatment on Sunday, we would have her meet with [facility] before but she has a meeting we can not schedule over. Thanks CLERK documented in this encounter Plan of Treatment Not on file documented as of this encounter Visit Diagnoses Not on filedocumented in this encounter
--- OUTSIDE RECORDS SUMMARY | 2024-01-23 09:50 | XMS_ITS | Encounter Summary ---
Author Name Unknown Organization [facility] Address [address] [place] [address] Care Team Providers Care Security Strategist Name Role Phone Unavailable Primary Care Provider Unavailabl e Reason for Visit * Radiation Therapy (Routine) - Authorized Specialty Diagnoses / Procedures Referred By Contsanchez t Referred To Contact Diagnoses Cancer Breast Ductal In Situ Right Procedures Prior Auth Rad Tx ID RADTN TX DEL >=1 MEV COMPLEX 3D Radha Elena M.D. [address] [place] [address] [facility] Referral ID Status Reason Start Date Expiration Date V isits Requested Visits Authorized [id number] Authorized 10/10/2023 10/04/2024 19 19 Encounter Details Date Type Department Care Team (Latest Contact Info) Description 10/31/2023 10:02 AM HOME CONNECT LPN - 10/31/2023 11:59 PM [facility] Hospital Encounter Department of Radiation Oncology in [place], [place] [address] [place] [phone] Radha Elena M.D. [address] [place] [address] Discharge Disposition: Home or Self Care Social [...]
--- OUTSIDE RECORDS SUMMARY | 2024-01-23 09:50 | XMS_ITS | Encounter Summary ---
Author Name Unknown Organization [facility] Address [address] [place] [address] Care Team Providers Care Real Estate Marketing Coordinator Name Role Phone Unavailable Primary Care Provider Unavailabl e Reason for Referral * Radiation Therapy (Routine) - Authorized Specialty Diagnoses / Procedures Referred By Anton cesar Referred To Contact Diagnoses Cancer Breast Ductal In Situ Right Procedures Management Visit Radha Elena M.D. [address] [place] [address] [facility] Region Referral ID Status Reason Start Date Expiration Date V isits Requested Visits Authorized [id number] Authorized 10/05/2023 10/04/2024 10 10 NSED REAL ESTATE BROKER Reason for Visit * Radiation Therapy (Routine) - Authorized Specialty Diagnoses / Procedures Referred By Anton cesar Referred To Contact Diagnoses Cancer Breast Ductal In Situ Right Procedures Management Visit Radha Elena M.D. [address] [place] [address] [facility] Region Referral ID Status Reason Start Date Expiration Date V isits Requested Visits Authorized [id number] Authorized 10/05/2023 10/04/2024 10 10 Encounter Details Date Type Department Care Team (Latest Contact Info) Description 10/29/2023 12:45 PM LICENSED REAL ESTATE BROKER - 10/29/2023 1:26 PM LICENSED REAL ESTATE BROKER Hospital Encounter Department of Radiation Oncology in [place], [place] [address] [place] [phone] Radha Elena M.D. [address] [place] [address] Cancer Breast Ductal In Situ Right Social [...] - - Temperature 36.7 ??C (98.1 ??F) 10/29/2023 12:[address] Respiratory Rate - - Oxygen Saturation - - Inhaled Oxygen Concentration - - Weight 74.2 kg (163 lb 9.6 oz) 10/29/2023 12:49 PM LICENSED REAL ESTATE BROKER Height - - Body Mass Index - - documented in this encounter Medications at Time of Discharge Medication Sig Dispensed Refills Start Date End Date mometasone (ELOCON) 0.1 % ointment Apply 1 Application topically 2 (two) times a day. Apply to right breast. 45 g 10/26/2023 11/13/2023 documented as of this encounter Progress Notes * Radha Elena M.D. - 10/29/2023 12:45 PM CST Diagnosis: Right breast DCIS. Radiation Treatment Progress Summary No radiation treatments to show. (Treatments may have been administered in another system.) SUBJECTIVE Ms. Kari Cantu a 43 y.o. reports that she feels well with no complaints. She is anxious about treatment and wanted to visit with me before her treatment today. OBJECTIVE Temp 36.7 ??C (Temporal) Wt 74.2 kg PHYSICAL EXAM General appearance: alert, appears stated age, cooperative, and no distress ASSESSMENT / PLAN #1 Stage 0 (pTis (DCIS), cN0, cM0, G1, ER+) ductal carcinoma in situ of the right breast s/p right breast excisional biopsy on September 14, 2023 with a close (<1 mm) inferior margin #2 Whole breast radiation therapy with SIB, initiated on October 29, 2023, anticipated completion date is November 16, 2023 I shared with her that her anatomy was very favorable for a simultaneous integrated boost (SIB) andso she will be done with her entire treatment in 15 treatments. I reviewed her plan in [facility] with her and we discussed options again. She again wished to proceed with 15 treatments. She will start hertreatments today We will continue as planned. Signed by: Radha Elena M.D. 10/29/2023 1:15 PM LICENSED REAL ESTATE BROKER NSED REAL ESTATE BROKER documented in this encounter Plan of Treatment Scheduled Orders Name Type Priority Associated Diagnoses Orde r Schedule Management Visit Radiation Oncology Routine Cancer Breast Ductal In Situ Right Once for 1 Occurrences starting 10/29/2023 until 10/29/2023 documented as of this encounter Visit Diagnoses Diagnosis Cancer Breast Ductal In Situ Right documented in this encounter
--- OUTSIDE RECORDS SUMMARY | 2024-01-23 09:50 | XMS_ITS | Encounter Summary ---
Author Name Unknown Organization [facility] Address [address] [place] [address] Care Team Providers Care Screenplay Writer Name Role Phone Unavailable Primary Care Provider Unavailabl e Reason for Visit * Radiation Therapy (Routine) - Authorized Specialty Diagnoses / Procedures Referred By Anton t Referred To Contact Diagnoses Cancer Breast Ductal In Situ Right Procedures Prior Auth Rad Tx CT RADTN TX DEL >=1 MEV COMPLEX 3D Radha Elena M.D. [address] [place] [address] [facility] Referral ID Status Reason Start Date Expiration Date V isits Requested Visits Authorized [id number] Authorized 10/10/2023 10/04/2024 19 19 Encounter Details Date Type Department Care Team (Latest Contact Info) Description 11/02/2023 9:49 AM [facility] Hospital Encounter Department of Radiation Oncology in [place], [place] [address] [place] [phone] Radha Elena M.D. [address] [place] [address] Discharge Disposition: Home or Self Care Social [...]
== END 2024-01-23 09:48 | disposition home or self-care (01) ==
PROVIDERS: PCP Family Medicine; Visit Provider Physician Assistant
DX: N92.6 Irregular menstruation, unspecified (principal)
CPT/HCPCS: 84443; 84703

== ENCOUNTER 2024-02-01 14:44 | Outpatient (CLI) | payer BC, SELFPAY ==
--- OUTSIDE RECORDS SUMMARY | 2024-02-01 14:46 | XMS_ITS | Encounter Summary ---
Author Name Unknown Organization [facility] Address [address] [place] [address] Care Team Providers Care Playground Official Name Role Phone Unavailable Primary Care Provider Unavailabl e Reason for Visit * Radiation Therapy (Routine) - Authorized Specialty Diagnoses / Procedures Referred By Contsanchez t Referred To Contact Diagnoses Cancer Breast Ductal In Situ Right Procedures Prior Auth Rad Tx [place] RADTN TX DEL >=1 MEV COMPLEX 3D Radha Elena M.D. [address] [place] [address] [facility] Referral ID Status Reason Start Date Expiration Date V isits Requested Visits Authorized [id number] Authorized 10/10/2023 10/04/2024 19 19 Encounter Details Date Type Department Care Team (Latest Contact Info) Description 11/16/2023 9:00 AM CORE CHECKER - 11/16/2023 11:59 PM [facility] Hospital Encounter Department of Radiation Oncology in [place], [place] [address] [place] [phone] Radha Elena M.D. [address] [place] [phone] Discharge Disposition: Home or Self Care Social [...]
--- OUTSIDE RECORDS SUMMARY | 2024-02-01 14:46 | XMS_ITS | Clinical Summary ---
Author Name Unknown Organization [facility] Address [address] [place] [address] Care Team Providers Care Page Makeup System Operator Name Role Phone Unavailable Primary Care Provider Unavailabl e Source Comments Patient records contain information from all sites at [facility]. For routine questions regarding patient records, call [phone] during business hours, M-F 8:00 AM - 5:00 PM Central Time. Record requests for emergency care only can be directed to [phone] at any time.[facility] Allergies No known active allergies Medications Medication Sig Dispensed Refills Start Date End Date Status mometasone (ELOCON) 0.1 % ointment Apply 1 Application topically 2 (two) times a day. Apply to right breast. 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 Staging:Pathologic stage from 09/14/2023:Stage 0(pTis (DCIS), cN0, cM0, G1, ER+, [place]: Unknown, HER2: Unknown) - Unsigned Encounters Date Type Department Care Team Description 11/16/2023 9:00 AM PLANTING SUPERVISOR - 11/16/2023 11:59 PM PLANTING SUPERVISOR Hospital Encounter Department of Radiation Oncology in [place], [place] [address] [place] [phone] Radha Elena M.D. Discharge Disposition: Home or Self Care 11/16/2023 Documentation Department of Radiation Oncology in [place], [place] [address] [place] [phone] Radha Elena M.D. 11/15/2023 9:12 AM PLANTING SUPERVISOR - 11/15/2023 11:59 PM PLANTING SUPERVISOR Hospital Encounter Department of Radiation Oncology in [address] [address] Radha Elena M.D. Discharge Disposition: Home or Self Care 11/14/2023 9:04 AM PLANTING SUPERVISOR - 11/14/2023 11:59 PM PLANTING SUPERVISOR Hospital Encounter Department of Radiation Oncology in [address] [address] Radha Elena M.D. Discharge Disposition: Home or Self Care 11/13/2023 9:02 AM PLANTING SUPERVISOR - 11/13/2023 5:13 PM PLANTING SUPERVISOR Hospital Encounter Department of Radiation Oncology in [address] [address] Radha Elena M.D. Cancer Breast Ductal In Situ Right 11/13/2023 9:01 AM PLANTING SUPERVISOR Hospital Encounter Department of Radiation Oncology in [address] [address] Radha Elena M.D. Discharge Disposition: Home or Self Care 11/12/2023 9:06 AM PLANTING SUPERVISOR - 11/12/2023 11:59 PM PLANTING SUPERVISOR Hospital Encounter Department of Radiation Oncology in [address] [address] Radha Elena M.D. Discharge Disposition: Home or Self Care 11/09/2023 9:06 AM PLANTING SUPERVISOR - 11/09/2023 11:59 PM PLANTING SUPERVISOR Hospital Encounter Department of Radiation Oncology in [address] [address] Radha Elena M.D. Discharge Disposition: Home or Self Care 11/08/2023 9:04 AM PLANTING SUPERVISOR - 11/08/2023 11:59 PM PLANTING SUPERVISOR Hospital Encounter Department of Radiation Oncology in [address] [address] Radha Elena M.D. Discharge Disposition: Home or Self Care 11/07/2023 8:58 AM PLANTING SUPERVISOR - 11/07/2023 3:22 PM PLANTING SUPERVISOR Hospital Encounter Department of Radiation Oncology in [address] [address] Radha Elena M.D. Cancer Breast Ductal In Situ Right 11/07/2023 8:58 AM PLANTING SUPERVISOR - 11/07/2023 11:59 PM PLANTING SUPERVISOR Hospital Encounter Department of Radiation Oncology in [address] [address] Radha Elena M.D. Discharge Disposition: Home or Self Care 11/06/2023 9:25 AM PLANTING SUPERVISOR - 11/06/2023 11:59 PM PLANTING SUPERVISOR Hospital Encounter Department of Radiation Oncology in [address] [address] Radha Elena M.D. Discharge Disposition: Home or Self Care 11/05/2023 11:47 AM PLANTING SUPERVISOR - 11/05/2023 11:59 PM PLANTING SUPERVISOR Hospital Encounter Department of Radiation Oncology in [address] [address] Radha Elena M.D. Discharge Disposition: Home or Self Care from Last 3 Months Immunizations Name Administration [...] Comments Blood Pressure 118/58 10/22/2023 8:54 AM PLANTING SUPERVISOR Pulse 71 10/22/2023 8:54 AM PLANTING SUPERVISOR Temperature 36.7 ??C (98.1 ??F) 11/13/2023 9:29 AM CS T Respiratory Rate - - Oxygen Saturation - - Inhaled Oxygen Concentration - - Weight 72.6 kg (160 lb 0.9 oz) 11/13/2023 9:29 A M PLANTING SUPERVISOR Height - - Body Mass Index - [...] COMPLETE TREATMENT INFORMATION Routine 11/16/2023 9:11 AM PLANTING SUPERVISOR [facility]A DAILY TREATMENT INFORMATION Routine 11/16/2023 9:11 AM PLANTING SUPERVISOR [facility]A DAILY TREATMENT INFORMATION Routine 11/15/2023 9:32 AM PLANTING SUPERVISOR ARIA DAILY TREATMENT INFORMATION Routine 11/14/2023 9:17 AM PLANTING SUPERVISOR ARIA DAILY TREATMENT INFORMATION Routine 11/13/2023 9:16 AM PLANTING SUPERVISOR ARIA DAILY TREATMENT INFORMATION Routine 11/12/2023 9:22 AM PLANTING SUPERVISOR ARIA DAILY TREATMENT INFORMATION Routine 11/09/2023 9:17 AM PLANTING SUPERVISOR ARIA DAILY TREATMENT INFORMATION Routine 11/08/2023 9:17 AM PLANTING SUPERVISOR ARIA DAILY TREATMENT INFORMATION Routine 11/07/2023 9:16 AM PLANTING SUPERVISOR ARIA DAILY TREATMENT INFORMATION Routine 11/06/2023 9:35 AM PLANTING SUPERVISOR ARIA DAILY TREATMENT INFORMATION Routine 11/05/2023 12:14 PM PLANTING SUPERVISOR OUTSIDE MG MAMMOGRAM Routine 09/14/2023 12:55 PM PLANTING SUPERVISOR from Last 3 Months or Most Recently Relevant to Health Maintenance Results * Aria Course Complete Treatment Information (11/16/2023 9:11 AM PLANTING SUPERVISOR) Course ID 1xBreast TEJADA ARIA Course Start Date 4 11:40 PLANTING SUPERVISOR TEJADA ARIA Course End Date 4 15:22 PLANTING SUPERVISOR TEJADA ARIA First Treatment Date 4 13:36 PLANTING SUPERVISOR TEJADA ARIA Last Treatment Date 4 09:11 PLANTING SUPERVISOR TEJADA ARIA Treatment Elapsed Days 18 TEJADA ARIA Reference Point [id number] TEJADA ARIA Dosage Given to Date cGy 4800 TEJADA ARIA Plan ID [id number] TEJADA ARIA Fractions Treated to Date 15 TEJADA ARIA Planned Total Fractions 15 TEJADA ARIA Prescribed Dose Per Fraction 320 TEJADA ARIA Prescription Dose in cGy 4800 TEJADA ARIA Plan Primary Reference Point [id number] TEJADA ARIA 11/16/2023 9:11 AM PLANTING SUPERVISOR Provider Not In System RADIATION ONCOLOG Y ORDERABLES TEJADA ARIA na * Aria Daily Treatment Information (11/16/2023 9:11 AM PLANTING SUPERVISOR) Only the most recent of10 resultswithin the time period is included. Course ID 1xBreast TEJADA ARIA Course Start Date 4 11:40 PLANTING SUPERVISOR TEJADA ARIA First Treatment Date 4 13:36 PLANTING SUPERVISOR TEJADA ARIA Last Treatment Date 4 09:11 PLANTING SUPERVISOR TEJADA ARIA Treatment Elapsed Days 18 TEJADA ARIA Reference Point [id number] TEJADA ARIA Dosage Given to Date cGy 4800 TEJADA ARIA Session Dosage Given 320 TEJADA ARIA Plan ID [id number] TEJADA ARIA Fractions Treated to Date 15 TEJADA ARIA Planned Total Fractions 15 TEJADA ARIA Prescribed Dose Per Fraction 320 TEJADA ARIA Prescription Dose in cGy 4800 TEJADA ARIA Plan Primary Reference Point [id number] TEJADA ARIA 11/16/2023 9:11 AM PLANTING SUPERVISOR Provider Not In System RADIATION ONCOLOG Y ORDERABLES Performing Organization Address City/[facility] Co de Phone Number TERRELL COAVRRUBIAS na * MM surgical specimen RT-Outside Mammogram (09/14/2023 12:55 PM PLANTING SUPERVISOR) Narrative IIMS - 09/19/2023 2:27 PM PLANTING SUPERVISOR This order has been created and auto-finalized to support the import of outside images. If available, original interpretation can be found on the Media Tab in Chart Review, in Document Viewer, or as an image in QREADS. If a re-interpretation or overread is required please follow defined workflow. ?? Provider Not In System IMG BI PROCEDURES Performing Organization Address City/State/[facility] Co de Phone Number IIMS NA from Last 3 Months or Most Recently Relevant to Health Maintenance [address] [place] [address]
--- OUTSIDE RECORDS SUMMARY | 2024-02-01 14:46 | XMS_ITS | Referral Summary ---
Author Name Unknown Organization [facility] Address [address] [place] [address] Care Team Providers Care Inspector Paper Products Name Role Phone Unavailable Primary Care Provider Unavailabl e Source Comments Patient records contain information from all sites at [facility]. For routine questions regarding patient records, call [phone] during business hours, M-F 8:00 AM - 5:00 PM Central Time. Record requests for emergency care only can be directed to [phone] at any time.[facility] Encounters Date Type Department Care Team Description 11/16/2023 Documentation Department of Radiation Oncology in [address] [address] Radha Elena M.D. 11/16/2023 9:00 AM FONDANT COOKER - 11/16/2023 11:59 PM FONDANT COOKER Hospital Encounter Department of Radiation Oncology in [address] [address] Radha Elena M.D. Discharge Disposition: Home or Self Care 11/15/2023 9:12 AM FONDANT COOKER - 11/15/2023 11:59 PM FONDANT COOKER Hospital Encounter Department of Radiation Oncology in [address] [address] Radha Elena M.D. Discharge Disposition: Home or Self Care 11/14/2023 9:04 AM FONDANT COOKER - 11/14/2023 11:59 PM FONDANT COOKER Hospital Encounter Department of Radiation Oncology in [address] [address] Radha Elena M.D. Discharge Disposition: Home or Self Care 11/13/2023 9:02 AM FONDANT COOKER - 11/13/2023 5:13 PM FONDANT COOKER Hospital Encounter Department of Radiation Oncology in [address] [address] Radha Elena M.D. Cancer Breast Ductal In Situ Right 11/13/2023 9:01 AM FONDANT COOKER Hospital Encounter Department of Radiation Oncology in [address] [address] Radha Elena M.D. Discharge Disposition: Home or Self Care 11/12/2023 9:06 AM FONDANT COOKER - 11/12/2023 11:59 PM FONDANT COOKER Hospital Encounter Department of Radiation Oncology in [address] [address] Radha Elena M.D. Discharge Disposition: Home or Self Care 11/09/2023 9:06 AM FONDANT COOKER - 11/09/2023 11:59 PM FONDANT COOKER Hospital Encounter Department of Radiation Oncology in [address] [address] Radha Elena M.D. Discharge Disposition: Home or Self Care 11/08/2023 9:04 AM FONDANT COOKER - 11/08/2023 11:59 PM FONDANT COOKER Hospital Encounter Department of Radiation Oncology in [address] [address] Radha Elena M.D. Discharge Disposition: Home or Self Care 11/07/2023 8:58 AM FONDANT COOKER - 11/07/2023 3:22 PM FONDANT COOKER Hospital Encounter Department of Radiation Oncology in [address] [address] Radha Elena M.D. Cancer Breast Ductal In Situ Right 11/07/2023 8:58 AM FONDANT COOKER - 11/07/2023 11:59 PM FONDANT COOKER Hospital Encounter Department of Radiation Oncology in [place] [address] [place] [address] Radha Elena M.D. Discharge Disposition: Home or Self Care 11/06/2023 9:25 AM FONDANT COOKER - 11/06/2023 11:59 PM FONDANT COOKER Hospital Encounter Department of Radiation Oncology in [address] [address] Radha Elena M.D. Discharge Disposition: Home or Self Care 11/05/2023 11:47 AM FONDANT COOKER - 11/05/2023 11:59 PM FONDANT COOKER Hospital Encounter Department of Radiation Oncology in [address] [address] Radha Elena M.D. Discharge Disposition: Home or Self Care from Last 3 Months Allergies No known [...] 09/14/2023:Stage 0(pTis (DCIS), cN0, cM0, G1, ER+, [place]: Unknown, HER2: Unknown) - Unsigned Immunizations Name [...] Comments Blood Pressure 118/58 10/22/2023 8:54 AM FONDANT COOKER Pulse 71 10/22/2023 8:54 AM FONDANT COOKER Temperature 36.7 ??C (98.1 ??F) 11/13/2023 9:29 AM CS T Respiratory Rate - - Oxygen Saturation - - Inhaled Oxygen Concentration - - Weight 72.6 kg (160 lb 0.9 oz) 11/13/2023 9:29 A M FONDANT COOKER Height - - Body Mass Index - - Plan of Treatment Not on file Procedures Procedure Name Priority Date/Time Associated Diagnosis Comments ARIA COURSE COMPLETE TREATMENT INFORMATION Routine 11/16/2023 9:11 AM FONDANT COOKER ARIA DAILY TREATMENT INFORMATION Routine 11/16/2023 9:11 AM FONDANT COOKER ARIA DAILY TREATMENT INFORMATION Routine 11/15/2023 9:32 AM FONDANT COOKER ARIA DAILY TREATMENT INFORMATION Routine 11/14/2023 9:17 AM FONDANT COOKER ARIA DAILY TREATMENT INFORMATION Routine 11/13/2023 9:16 AM FONDANT COOKER ARIA DAILY TREATMENT INFORMATION Routine 11/12/2023 9:22 AM FONDANT COOKER ARIA DAILY TREATMENT INFORMATION Routine 11/09/2023 9:17 AM FONDANT COOKER ARIA DAILY TREATMENT INFORMATION Routine 11/08/2023 9:17 AM FONDANT COOKER ARIA DAILY TREATMENT INFORMATION Routine 11/07/2023 9:16 AM FONDANT COOKER ARIA DAILY TREATMENT INFORMATION Routine 11/06/2023 9:35 AM FONDANT COOKER ARIA DAILY TREATMENT INFORMATION Routine 11/05/2023 12:14 PM FONDANT COOKER OUTSIDE MG MAMMOGRAM Routine 09/14/2023 12:55 PM FONDANT COOKER from Last 3 Months or Most Recently Relevant to Health Maintenance Results * Aria Course Complete Treatment Information (11/16/2023 9:11 AM FONDANT COOKER) [facility] Course ID 1xBreast TEJADA ARIA Course Start Date 4 11:40 FONDANT COOKER TEJADA ARIA Course End Date 4 15:22 FONDANT COOKER TEJADA ARIA First Treatment Date 4 13:36 FONDANT COOKER TEJADA ARIA Last Treatment Date 4 09:11 FONDANT COOKER TEJADA ARIA Treatment Elapsed Days 18 TEJADA ARIA Reference Point [id number] TEJADA ARIA Dosage Given to Date cGy 4800 TEJADA ARIA Plan ID [id number] TEJADA ARIA Fractions Treated to Date 15 TEJADA ARIA Planned Total Fractions 15 TEJADA ARIA Prescribed Dose Per Fraction 320 TEJADA ARIA Prescription Dose in cGy 4800 TEJADA ARIA Plan Primary Reference Point [id number] TEJADA ARIA 11/16/2023 9:11 AM FONDANT COOKER Provider Not In System RADIATION ONCOLOG Y ORDERABLES TERRELL COVARRUBIAS na * Aria Daily Treatment Information (11/16/2023 9:11 AM FONDANT COOKER) Only the most recent of10 resultswithin the time period is included. Course ID 1xBreast TEJADA ARIA Course Start Date 4 11:40 FONDANT COOKER TEJADA ARIA First Treatment Date 4 13:36 FONDANT COOKER TEJADA ARIA Last Treatment Date 4 09:11 FONDANT COOKER TEJADA ARIA Treatment Elapsed Days 18 TEJADA ARIA Reference Point [id number] TEJADA ARIA Dosage Given to Date cGy 4800 TEJADA ARIA Session Dosage Given 320 TEJADA ARIA Plan ID [id number] TEJADA ARIA Fractions Treated to Date 15 TEJADA ARIA Planned Total Fractions 15 TEJADA ARIA Prescribed Dose Per Fraction 320 TEJADA ARIA Prescription Dose in cGy 4800 TEJADA ARIA Plan Primary Reference Point [id number] TEJADA ARIA 11/16/2023 9:11 AM FONDANT COOKER Provider Not In System RADIATION ONCOLOG Y ORDERABLES TERRELL COVARRUBIAS na * MM surgical specimen RT-Outside Mammogram (09/14/2023 12:55 PM FONDANT COOKER) Narrative IIMS - 09/19/2023 2:27 PM FONDANT COOKER This order has been created and auto-finalized [...] or Most Recently Relevant to Health Maintenance [id number] [place] [id number]
--- OUTSIDE RECORDS SUMMARY | 2024-02-01 14:46 | XMS_ITS ---
Author Name Unknown Organization [facility] Address [address] [place] [address] Care Team Providers Care Gasoline Locomotive Crane Operator Name Role Phone Unavailable Primary Care Provider Unavailabl e Active Problems Problem Noted Date Diagnosed Date Cancer Breast Ductal In Situ Right 09/20/2023 Cancer Staging:Pathologic stage from 09/14/2023:Stage 0(pTis (DCIS), cN0, cM0, G1, ER+, [place]: Unknown, HER2: Unknown) - Unsigned Current Oncology Plans No current plan information found. Past Plans No past plan information found. Radiation Treatments * Plan Last Treated On Elapsed Days Fractions Treated Prescribed Fraction Dose Prescribed Total Dose [id number] 11/16/2023 18 15 of 15 320 cGy 4,800 cGy Reference Point Last Treated On Elapsed Days Session Dose Total Dose [id number] 11/16/2023 18 320 cGy 4,800 cGy
--- OUTSIDE RECORDS SUMMARY | 2024-02-01 14:46 | XMS_ITS ---
Author Name Unknown Organization [facility] Address [address] [place] [address] Care Team Providers Care Supervisor Riveting Name Role Phone Unavailable Unavailable Unavailable Surgery Details Not on file Complications Check Surgery Details section. Procedure Estimated Blood Loss Check Surgery Details section. Procedure Findings Check Surgery Details section. Procedure Specimens Taken Check Surgery Details section.
--- OUTSIDE RECORDS SUMMARY | 2024-02-01 14:46 | XMS_ITS | Encounter Summary ---
Author Name Unknown Organization [facility] Address [address] [place] [address] Care Team Providers Care Service Mechanic Name Role Phone Unavailable Primary Care Provider Unavailabl e Encounter Details Date Type Department Care Team (Late st Contact Info) Description 11/16/2023 Documentation Department of Radiation Oncology in [place], [place] [address] [place] [phone] Radha Elena M.D. [address] [place] [address] Social History Tobacco Use Types Packs/Day Years [...] (cGy) First Treatment Last Treatment Elapsed Days [id number] 320 4800 4800 10/29/2023 11/16/2023 Course Summary [...] by: Amanda Rader R.N., 11/19/2023 12:21 PM BOBBIN CLEANING MACHINE OPERATOR [facility] [address] [place] [address] IN CLEANING MACHINE OPERATOR documented in this encounter Plan of Treatment Not on file documented as of this encounter Visit Diagnoses Diagnosis Cancer Breast Ductal In Situ Right- Primary documented in this encounter
--- OUTSIDE RECORDS SUMMARY | 2024-02-01 14:47 | XMS_ITS | Encounter Summary ---
Author Name Unknown Organization [facility] Address [address] [place] [address] Care Team Providers Care Insecticide Maker Name Role Phone Unavailable Primary Care Provider Unavailabl e Reason for Visit * Radiation Therapy (Routine) - Authorized Specialty Diagnoses / Procedures Referred By Contsanchez t Referred To Contact Diagnoses Cancer Breast Ductal In Situ Right Procedures Prior Auth Rad Tx [place] RADTN [place] DEL >=1 MEV COMPLEX 3D Radha Elena M.D. [address] [place] [address] [facility] Referral ID Status Reason Start Date Expiration Date V isits Requested Visits Authorized [id number] Authorized 10/10/2023 10/04/2024 19 19 Encounter Details Date Type Department Care Team (Latest Contact Info) Description 10/30/2023 10:03 AM IOS DEVELOPER - 10/30/2023 11:59 PM [facility] Hospital Encounter Department of Radiation Oncology in [place], [place] [address] [place] [address] Radha Elena M.D. [address] [place] [address] Discharge Disposition: Home or Self Care Social [...]
--- OUTSIDE RECORDS SUMMARY | 2024-02-01 14:47 | XMS_ITS | Encounter Summary ---
Author Name Unknown Organization [facility] Address [address] [place] [address] Care Team Providers Care Dot Net Developer Name Role Phone Unavailable Primary Care Provider Unavailabl e Reason for Visit * Radiation Therapy (Routine) - Authorized Specialty Diagnoses / Procedures Referred By Contsanchez t Referred To Contact Diagnoses Cancer Breast Ductal In Situ Right Procedures Prior Auth Rad Tx [place] RADTN [place] DEL >=1 MEV COMPLEX 3D Radha Elena M.D. [address] [place] [address] [facility] Referral ID Status Reason Start Date Expiration Date V isits Requested Visits Authorized [id number] Authorized 10/10/2023 10/04/2024 19 19 Encounter Details Date Type Department Care Team (Latest Contact Info) Description 10/31/2023 10:02 AM CRIMINAL INVESTIGATIVE AGENT - 10/31/2023 11:59 PM [facility] Hospital Encounter Department of Radiation Oncology in [place], [place] [address] [place] [address] Radha Elena M.D. [address] [place] [address] Discharge Disposition: Home or Self Care Social [...]
--- OUTSIDE RECORDS SUMMARY | 2024-02-01 14:47 | XMS_ITS | Encounter Summary ---
Author Name Unknown Organization [facility] Address [address] [place] [address] Care Team Providers Care Amr Physician Name Role Phone Unavailable Primary Care Provider Unavailabl e Encounter Details Date Type Department Care Team (Late st Contact Info) Description 10/26/2023 Clinical Communication Department of Radiation Oncology in [place], [place] [address] [place] [phone] Radha Elena M.D. [address] [place] [address] Social History Tobacco Use Types Packs/Day Years [...] Latanya Schwartz RDeng - 10/26/2023 10:11 AM MANAGER MARKETING COMMUNICATIONS Patient's preferred pharmacy is [facility] in [place], [place]. Mometasone prescription will be sent topatient's preferred pharmacy today. GER MARKETING COMMUNICATIONS * Telephone Encounter - Yany Miramontes - 10/26/2023 9:46 AM CST Patient called and has questions in regards to her treatments that we are not able to answer, she would like them answered before her treatment on Sunday, we would have her meet with [facility] before but she has a meeting we can not schedule over. Thanks GER MARKETING COMMUNICATIONS documented in this encounter Plan of Treatment Not on file documented as of this encounter Visit Diagnoses Not on filedocumented in this encounter
--- OUTSIDE RECORDS SUMMARY | 2024-02-01 14:47 | XMS_ITS | Encounter Summary ---
Author Name Unknown Organization [facility] Address [address] [place] [address] Care Team Providers Care Life Sciences Instructor Name Role Phone Unavailable Primary Care Provider Unavailabl e Reason for Visit * Radiation Therapy (Routine) - Authorized Specialty Diagnoses / Procedures Referred By Contsanchez t Referred To Contact Diagnoses Cancer Breast Ductal In Situ Right Procedures Prior Auth Rad Tx [place] RADTN [place] DEL >=1 MEV COMPLEX 3D Radha Elena M.D. [address] [place] [address] [facility] Referral ID Status Reason Start Date Expiration Date V isits Requested Visits Authorized [id number] Authorized 10/10/2023 10/04/2024 19 19 Encounter Details Date Type Department Care Team (Latest Contact Info) Description 10/29/2023 12:32 PM TRIM OPERATOR - 10/29/2023 12:44 PM [facility] Hospital Encounter Department of Radiation Oncology in [place], [place] [address] [place] [address] Radha Elena M.D. [address] [place] [address] Discharge Disposition: Home or Self Care Social [...]
--- OUTSIDE RECORDS SUMMARY | 2024-02-01 14:47 | XMS_ITS | Encounter Summary ---
Author Name Unknown Organization [facility] Address [address] [place] [address] Care Team Providers Care Clin Nurse Spec Name Role Phone Unavailable Primary Care Provider Unavailabl e Reason for Visit * Radiation Therapy (Routine) - Authorized Specialty Diagnoses / Procedures Referred By Contsanchez t Referred To Contact Diagnoses Cancer Breast Ductal In Situ Right Procedures Prior Auth Rad Tx [place] RADTN [place] DEL >=1 MEV COMPLEX 3D Radha Elena M.D. [address] [place] [address] [facility] Referral ID Status Reason Start Date Expiration Date V isits Requested Visits Authorized [id number] Authorized 10/10/2023 10/04/2024 19 19 Encounter Details Date Type Department Care Team (Latest Contact Info) Description 11/14/2023 9:04 AM FLEXOGRAPHIC PRESS HELPER - 11/14/2023 11:59 PM [facility] Hospital Encounter Department of Radiation Oncology in [place], [place] [address] [place] [address] Radha Elena M.D. [address] [place] [phone] Discharge Disposition: Home or Self Care Social [...]
--- OUTSIDE RECORDS SUMMARY | 2024-02-01 14:47 | XMS_ITS | Encounter Summary ---
Author Name Unknown Organization [facility] Address [address] [place] [address] Care Team Providers Care Hand Buffer Name Role Phone Unavailable Primary Care Provider Unavailabl e Reason for Visit * Radiation Therapy (Routine) - Authorized Specialty Diagnoses / Procedures Referred By Contsanchez t Referred To Contact Diagnoses Cancer Breast Ductal In Situ Right Procedures Prior Auth Rad Tx [place] RADTN [place] DEL >=1 MEV COMPLEX 3D Radha Elena M.D. [address] [place] [address] [facility] Referral ID Status Reason Start Date Expiration Date V isits Requested Visits Authorized [id number] Authorized 10/10/2023 10/04/2024 Encounter Details Date Type Department Care Team (Latest Contact Info) Description 11/05/2023 11:47 AM PSYCHOTHERAPIST SOCIAL WORKER - 11/05/2023 11:59 PM [facility] Hospital Encounter Department of Radiation Oncology in [place], [place] [address] [place] [address] Radha Elena M.D. [address] [place] [address] Discharge Disposition: Home or Self Care Social [...]
--- OUTSIDE RECORDS SUMMARY | 2024-02-01 14:47 | XMS_ITS | Encounter Summary ---
Author Name Unknown Organization [facility] Address [address] [place] [address] Care Team Providers Care Collar Stitcher Name Role Phone Unavailable Primary Care Provider Unavailabl e Reason for Referral * Radiation Therapy (Routine) - Authorized Specialty Diagnoses / Procedures Referred By Bestac t Referred To Contact Diagnoses Cancer Breast Ductal In Situ Right Procedures Management Visit Radha Elena M.D. [address] [place] [address] [facility] Region Referral ID Status Reason Start Date Expiration Date V isits Requested Visits Authorized [id number] Authorized 10/05/2023 10/04/2024 10 10 ICATION PROJECT LEADER Reason for Visit * Radiation Therapy (Routine) - Authorized Specialty Diagnoses / Procedures Referred By Anton cesar Referred To Contact Diagnoses Cancer Breast Ductal In Situ Right Procedures Management Visit Radha Elena M.D. [address] [place] [address] [facility] Region Referral ID Status Reason Start Date Expiration Date V isits Requested Visits Authorized [id number] Authorized 10/05/2023 10/04/2024 10 10 Encounter Details Date Type Department Care Team (Latest Contact Info) Description 11/02/2023 9:50 AM APPLICATION PROJECT LEADER - 11/02/2023 11:39 AM APPLICATION PROJECT LEADER Hospital Encounter Department of Radiation Oncology in [place], [place] [address] [place] [address] Lorne Castillo M.D. [address] [place] [address] Cancer Breast Ductal In Situ Right Social [...] (160 lb 4.4 oz) 11/02/2023 10:24 AM APPLICATION PROJECT LEADER Height - - Body Mass Index - [...] Situ Right SUPERVISED BY: Lorne Castillo M.D. ([id number]) HISTORY OF PRESENT ILLNESS Ms. Kari Cantu is a 43 y.o. female with resected right breast DCIS. Patient is now undergoing radiation therapy. Treatment Course: 1xBreast Plan ID Fractions Dose / Fraction (cGy) Dose Treated (cGy) Dose Planned (cGy) First Treatment Last Treatment Elapsed Days [id number] 320 1600 4800 10/29/2023 11/02/2023 4 Course [...] by: Latanya Schwartz R.N. 11/02/2023 11:05 AM APPLICATION PROJECT LEADER I saw and evaluated the patient and participated in the royal portions of the service. I reviewed thedocumentation of Latanya Schwartz R.N. and agree with the findings and plan. The patient appears well on exam. She is tolerating treatment well. She will continue with treatment as planned. Signed by: Lorne Castillo M.D. 11/02/2023 11:39 AM APPLICATION PROJECT LEADER [facility] Radiation Therapy Center [address] [place], [place] [id number] ICATION PROJECT LEADER documented in this encounter Plan of Treatment Scheduled Orders Name Type Priority Associated Diagnoses Orde r Schedule Management Visit Radiation Oncology Routine Cancer Breast Ductal In Situ Right Once for 1 Occurrences starting 11/02/2023 until 11/02/2023 documented as of this encounter Visit Diagnoses Diagnosis Cancer Breast Ductal In Situ Right documented in this encounter
--- OUTSIDE RECORDS SUMMARY | 2024-02-01 14:47 | XMS_ITS | Encounter Summary ---
Author Name Unknown Organization [facility] Address [address] [place] [address] Care Team Providers Care Side Trimmer Name Role Phone Unavailable Primary Care Provider Unavailabl e Reason for Referral * Radiation Therapy (Routine) - Authorized Specialty Diagnoses / Procedures Referred By Anton cesar Referred To Contact Diagnoses Cancer Breast Ductal In Situ Right Procedures Management Visit Radha Elena M.D. [address] [place] [address] [facility] Region Referral ID Status Reason Start Date Expiration Date V isits Requested Visits Authorized [id number] Authorized 10/05/2023 10/04/2024 10 10 RECORDIST Reason for Visit * Radiation Therapy (Routine) - Authorized Specialty Diagnoses / Procedures Referred By Anton cesar Referred To Contact Diagnoses Cancer Breast Ductal In Situ Right Procedures Management Visit Radha Elena M.D. [address] [place] [address] [facility] Region Referral ID Status Reason Start Date Expiration Date V isits Requested Visits Authorized [id number] Authorized 10/05/2023 10/04/2024 10 10 Encounter Details Date Type Department Care Team (Latest Contact Info) Description 11/13/2023 9:02 AM DISC RECORDIST - 11/13/2023 5:13 PM DISC RECORDIST Hospital Encounter Department of Radiation Oncology in [place], [place] [address] [place] [address] Radha Elena M.D. [address] [place] [address] Cancer Breast Ductal In Situ Right Social [...] lb 0.9 oz) 11/13/2023 9:29 A M DISC RECORDIST Height - - Body Mass Index - [...] (cGy) First Treatment Last Treatment Elapsed Days [id number] 320 3840 4800 10/29/2023 11/13/2023 15 Course [...] by: Latanya Schwartz R.N. 11/13/2023 2:16 PM DISC RECORDIST RECORDIST documented in this encounter Plan of Treatment Scheduled Orders Name Type Priority Associated Diagnoses Orde r Schedule Management Visit Radiation Oncology Routine Cancer Breast Ductal In Situ Right Once for 1 Occurrences starting 11/13/2023 until 11/13/2023 documented as of this encounter Visit Diagnoses Diagnosis Cancer Breast Ductal In Situ Right documented in this encounter
--- OUTSIDE RECORDS SUMMARY | 2024-02-01 14:47 | XMS_ITS | Encounter Summary ---
Author Name Unknown Organization [facility] Address [address] [place] [address] Care Team Providers Care Hotel Service Manager Name Role Phone Unavailable Primary Care Provider Unavailabl e Reason for Visit * Radiation Therapy (Routine) - Authorized Specialty Diagnoses / Procedures Referred By Contsanchez t Referred To Contact Diagnoses Cancer Breast Ductal In Situ Right Procedures Prior Auth Rad Tx CT RADTN [place] DEL >=1 MEV COMPLEX 3D Radha Elena M.D. [address] [place] [address] [facility] Referral ID Status Reason Start Date Expiration Date V isits Requested Visits Authorized [id number] Authorized 10/10/2023 10/04/2024 19 19 Encounter Details Date Type Department Care Team (Latest Contact Info) Description 11/06/2023 9:25 AM SALES OPERATIONS ASSISTANT - 11/06/2023 11:59 PM [facility] Hospital Encounter Department of Radiation Oncology in [place], [place] [address] [place] [address] Radha Elena M.D. [address] [place] [phone] Discharge Disposition: Home or Self Care Social [...]
--- OUTSIDE RECORDS SUMMARY | 2024-02-01 14:47 | XMS_ITS | Encounter Summary ---
Author Name Unknown Organization [facility] Address [address] [place] [address] Care Team Providers Care Wood Treating Inspector Name Role Phone Unavailable Primary Care Provider Unavailabl e Reason for Visit * Radiation Therapy (Routine) - Authorized Specialty Diagnoses / Procedures Referred By Contsanchez t Referred To Contact Diagnoses Cancer Breast Ductal In Situ Right Procedures Prior Auth Rad Tx [place] RADTN [place] DEL >=1 MEV COMPLEX 3D Radha Elena M.D. [address] [place] [address] [facility] Referral ID Status Reason Start Date Expiration Date V isits Requested Visits Authorized [id number] Authorized 10/10/2023 10/04/2024 19 19 Encounter Details Date Type Department Care Team (Latest Contact Info) Description 11/08/2023 9:04 AM APPAREL RENTAL CLERK - 11/08/2023 11:59 PM [facility] Hospital Encounter Department of Radiation Oncology in [place], [place] [address] [place] [phone] Radha Elena M.D. [address] [place] [address] Discharge Disposition: Home or Self Care Social [...]
--- OUTSIDE RECORDS SUMMARY | 2024-02-01 14:47 | XMS_ITS | Encounter Summary ---
Author Name Unknown Organization [facility] Address [address] [place] [address] Care Team Providers Care Bituminous Distributor Operator Name Role Phone Unavailable Primary Care Provider Unavailabl e Reason for Visit * Radiation Therapy (Routine) - Authorized Specialty Diagnoses / Procedures Referred By Contsanchez t Referred To Contact Diagnoses Cancer Breast Ductal In Situ Right Procedures Prior Auth Rad Tx [place] RADTN TX DEL >=1 MEV COMPLEX 3D Radha Elena M.D. [address] [place] [address] [facility] Referral ID Status Reason Start Date Expiration Date V isits Requested Visits Authorized [id number] Authorized 10/10/2023 10/04/2024 19 19 Encounter Details Date Type Department Care Team (Latest Contact Info) Description 11/07/2023 8:58 AM COBOL DEVELOPER - 11/07/2023 11:59 PM [facility] Hospital Encounter Department of Radiation Oncology in [place], [place] [address] [place] [phone] Radha Elena M.D. [address] [place] [phone] Discharge Disposition: Home or Self Care Social [...]
--- OUTSIDE RECORDS SUMMARY | 2024-02-01 14:47 | XMS_ITS | Encounter Summary ---
Author Name Unknown Organization [facility] Address [address] [place] [address] Care Team Providers Care Floral Specialist Name Role Phone Unavailable Primary Care Provider Unavailabl e Reason for Visit * Radiation Therapy (Routine) - Authorized Specialty Diagnoses / Procedures Referred By Contsanchez t Referred To Contact Diagnoses Cancer Breast Ductal In Situ Right Procedures Prior Auth Rad Tx [place] RADTN TX DEL >=1 MEV COMPLEX 3D Radha Elena M.D. [address] [place] [address] [facility] Referral ID Status Reason Start Date Expiration Date V isits Requested Visits Authorized [id number] Authorized 10/10/2023 10/04/2024 19 19 Encounter Details Date Type Department Care Team (Latest Contact Info) Description 11/01/2023 10:01 AM DIRECTOR OF QUANTITATIVE RESEARCH - 11/01/2023 11:59 PM [facility] Hospital Encounter Department of Radiation Oncology in [place], [place] [address] [place] [phone] Radha Elena M.D. [address] [place] [phone] Discharge Disposition: Home or Self Care Social [...]
--- OUTSIDE RECORDS SUMMARY | 2024-02-01 14:47 | XMS_ITS | Encounter Summary ---
Author Name Unknown Organization [facility] Address [address] [place] [address] Care Team Providers Care System Support Administrator Name Role Phone Unavailable Primary Care Provider Unavailabl e Reason for Visit * Radiation Therapy (Routine) - Authorized Specialty Diagnoses / Procedures Referred By Contsanchez t Referred To Contact Diagnoses Cancer Breast Ductal In Situ Right Procedures Prior Auth Rad Tx [place] RADTN TX DEL >=1 MEV COMPLEX 3D Radha Elena M.D. [address] [place] [address] [facility] Referral ID Status Reason Start Date Expiration Date V isits Requested Visits Authorized [id number] Authorized 10/10/2023 10/04/2024 19 19 Encounter Details Date Type Department Care Team (Latest Contact Info) Description 11/09/2023 9:06 AM TECHNICIAN ANATOMIC PATHOLOGY - 11/09/2023 11:59 PM [facility] Encounter Department of Radiation Oncology in [place], [place] [address] [place] [phone] Radha Elena M.D. [address] [place] [phone] Discharge Disposition: Home or Self Care Social [...]
--- OUTSIDE RECORDS SUMMARY | 2024-02-01 14:47 | XMS_ITS | Encounter Summary ---
Author Name Unknown Organization [facility] Address [address] [place] [address] Care Team Providers Care Leadership Coach Name Role Phone Unavailable Primary Care Provider Unavailabl e Reason for Visit * Radiation Therapy (Routine) - Authorized Specialty Diagnoses / Procedures Referred By Contsanchez t Referred To Contact Diagnoses Cancer Breast Ductal In Situ Right Procedures Prior Auth Rad Tx [place] RADTN TX DEL >=1 MEV COMPLEX 3D Radha Elena M.D. [address] [place] [address] [facility] Referral ID Status Reason Start Date Expiration Date V isits Requested Visits Authorized [id number] Authorized 10/10/2023 10/04/2024 19 19 Encounter Details Date Type Department Care Team (Latest Contact Info) Description 11/12/2023 9:06 AM REMOTE SENSING SCIENTIST - 11/12/2023 11:59 PM [facility] Hospital Encounter Department of Radiation Oncology in [place], [place] [address] [place] [address] Radha Elena M.D. [address] [place] [phone] Discharge Disposition: Home or Self Care Social [...]
--- OUTSIDE RECORDS SUMMARY | 2024-02-01 14:47 | XMS_ITS | Encounter Summary ---
Author Name Unknown Organization [facility] Address [address] [place] [address] Care Team Providers Care Analysis Internship Name Role Phone Unavailable Primary Care Provider Unavailabl e Reason for Referral * Specialty Diagnoses / Procedures Referred By Anton cesar Referred To Contact Radha Elena M.D. [address] [place] [address] [facility] Referral ID Status Reason Start Date Expiration Date Visits Re quested Visits Authorized AGE BATTERY CHARGER Encounter Details Date Type Department Care Team (Latest Contact Info) Description 11/02/2023 9:50 AM STORAGE BATTERY CHARGER - 11/02/2023 11:05 AM STORAGE BATTERY CHARGER Hospital Encounter Department of Radiation Oncology in [place], [place] [address] [place] [phone] Radha Elena M.D. [address] [place] [phone] Latanya Schwartz R.N. [address] [place] [phone] Cancer Breast Ductal In Situ Right Discharge [...] (160 lb 4.4 oz) 11/02/2023 11:00 AM STORAGE BATTERY CHARGER Height - - Body Mass Index - [...] at any point, with questions or concerns. AGE BATTERY CHARGER documented in this encounter Plan of Treatment [...]
--- OUTSIDE RECORDS SUMMARY | 2024-02-01 14:47 | XMS_ITS | Clinical Summary ---
Author Name Unknown Organization [facility] [place] [address] Care Team Providers Care Floral Merchandiser Name Role Phone Pcp, No Primary Care Provider Unavailabl e Allergies No known active allergies Medications No known medications Active Problems No known active problems Social History Tobacco Use Types Packs/Day Years Used Date Smoking Tobacco: Never Assessed Sex and Gender Information Value Date Recorded Sex Assigned at Not on file Gender Identity Not on file Sexual Orientation Not on file Obstetrics History Last Filed Vital Signs Vital Sign Reading Time Taken Comments Blood Pressure 110/64 11/20/2015 1:10 PM ADVERTISING SALES AGENT Pulse 60 11/20/2015 1:10 PM ADVERTISING SALES AGENT Temperature 36.9 ??C (98.4 ??F) 11/20/2015 1:10 PM CS T Respiratory Rate - - Oxygen Saturation - - Inhaled Oxygen Concentration - - Weight 85.3 kg (188 lb) 11/20/2015 1:10 PM ADVERTISING SALES AGENT Height - - Body Mass Index - - Plan of Treatment Health Maintenance Due Date Last Done Comments Tdap 1992 Depression screening for age 12+ 1993 HIV for age 15-65 1996 BMI (ht and wt on same day) for age 18+ 1999 Hepatitis C screening for age 18-79 1999 Tetanus booster 2001 COVID-19 vaccine series (2022- season) 2023 Influenza for age 9-49 05/18/2024 [...] 16 Negative Negative 03/22/2023 5:17 PM CDT [facility] TYPE 18 Negative Negative 03/22/2023 5:17 PM CDT [facility] OTHER HIGH RISK TYPES Negative Negative 03/22/2023 5:17 PM CDT [facility] Other (Cervical) 03/13/2023 12:00 PM CDT 03/19/2023 12:21 PM CDT Narrative [facility] - 03/22/2023 5:17 PM CDT HPV types 16, 18, 31, 33, 35, 39, 45, 51, 52, 56, 58, 59, 66 and 68 DNA were undetectable or below the pre-set threshold. Methodology: Lyudmila Stef 4800 HPV Test December Fozia AWAN [facility] [address] [place] [address], from Last 3 Months or Most Recently Relevant to Health Maintenance Care Teams Floral Merchandiser Relationship Specialty Start Date End Date Pcp, No . PCP - General 11/20/15
--- OUTSIDE RECORDS SUMMARY | 2024-02-01 14:47 | XMS_ITS | Encounter Summary ---
Author Name Unknown Organization [facility] Address [address] [place] [address] Care Team Providers Care Gas Scrubber Operator Name Role Phone Unavailable Primary Care Provider Unavailabl e Reason for Visit * Radiation Therapy (Routine) - Authorized Specialty Diagnoses / Procedures Referred By Contsanchez t Referred To Contact Diagnoses Cancer Breast Ductal In Situ Right Procedures Prior Auth Rad Tx [place] RADTN TX DEL >=1 MEV COMPLEX 3D Radha Elena M.D. [address] [place] [address] [facility] Referral ID Status Reason Start Date Expiration Date V isits Requested Visits Authorized [id number] Authorized 10/10/2023 10/04/2024 19 19 Encounter Details Date Type Department Care Team (Latest Contact Info) Description 11/15/2023 9:12 AM WINDOW DECORATOR - 11/15/2023 11:59 PM [facility] Hospital Encounter Department of Radiation Oncology in [place], [place] [address] [place] [phone] Radha Elena M.D. [address] [place] [address] Discharge Disposition: Home or Self Care Social [...]
--- OUTSIDE RECORDS SUMMARY | 2024-02-01 14:47 | XMS_ITS | Encounter Summary ---
Author Name Unknown Organization [facility] Address [address] [place] [address] Care Team Providers Care Seamless Tube Roller Name Role Phone Unavailable Primary Care Provider Unavailabl e Reason for Referral * Radiation Therapy (Routine) - Authorized Specialty Diagnoses / Procedures Referred By Anton cesar Referred To Contact Diagnoses Cancer Breast Ductal In Situ Right Procedures Management Visit Radha Elena M.D. [address] [place] [address] [facility] Region Referral ID Status Reason Start Date Expiration Date V isits Requested Visits Authorized [id number] Authorized 10/05/2023 10/04/2024 10 10 ONENT DESIGN ENGINEER Reason for Visit * Radiation Therapy (Routine) - Authorized Specialty Diagnoses / Procedures Referred By Anton cesar Referred To Contact Diagnoses Cancer Breast Ductal In Situ Right Procedures Management Visit Radha Elena M.D. [address] [place] [address] [facility] Region Referral ID Status Reason Start Date Expiration Date V isits Requested Visits Authorized [id number] Authorized 10/05/2023 10/04/2024 10 10 Encounter Details Date Type Department Care Team (Latest Contact Info) Description 11/07/2023 8:58 AM COMPONENT DESIGN ENGINEER - 11/07/2023 3:22 PM COMPONENT DESIGN ENGINEER Hospital Encounter Department of Radiation Oncology in [place], [place] [address] [place] [phone] Radha Elena M.D. [address] [place] [address] Cancer Breast Ductal In Situ Right Social [...] (cGy) First Treatment Last Treatment Elapsed Days [id number] 10/29/2023 11/07/2023 9 Course [...] by: Latanya Schwartz R.N. 11/07/2023 9:35 AM COMPONENT DESIGN ENGINEER ONENT DESIGN ENGINEER documented in this encounter Plan of Treatment Scheduled Orders Name Type Priority Associated Diagnoses Orde r Schedule Management Visit Radiation Oncology Routine Cancer Breast Ductal In Situ Right Once for 1 Occurrences starting 11/07/2023 until 11/07/2023 documented as of this encounter Visit Diagnoses Diagnosis Cancer Breast Ductal In Situ Right documented in this encounter
--- OUTSIDE RECORDS SUMMARY | 2024-02-01 14:47 | XMS_ITS | Encounter Summary ---
Author Name Unknown Organization [facility] Address [address] [place] [address] Care Team Providers Care Hse Coordinator Name Role Phone Unavailable Primary Care Provider Unavailabl e Reason for Visit * Radiation Therapy (Routine) - Authorized Specialty Diagnoses / Procedures Referred By Anton t Referred To Contact Diagnoses Cancer Breast Ductal In Situ Right Procedures Prior Auth Rad Tx [place] RADTN TX DEL >=1 MEV COMPLEX 3D Radha Elena M.D. [address] [place] [address] [facility] Referral ID Status Reason Start Date Expiration Date V isits Requested Visits Authorized [id number] Authorized 10/10/2023 10/04/2024 19 19 Encounter Details Date Type Department Care Team (Latest Contact Info) Description 11/02/2023 9:49 AM [facility] Hospital Encounter Department of Radiation Oncology in [place], [place] [address] [place] [address] Radha Elena M.D. [address] [place] [address] Discharge Disposition: Home or Self Care Social [...]
--- OUTSIDE RECORDS SUMMARY | 2024-02-01 14:47 | XMS_ITS | Encounter Summary ---
Author Name Unknown Organization [facility] Address [address] [place] [address] Care Team Providers Care Animal Attendants And Trainers Name Role Phone Unavailable Primary Care Provider Unavailabl e Reason for Visit * Radiation Therapy (Routine) - Authorized Specialty Diagnoses / Procedures Referred By Anton t Referred To Contact Diagnoses Cancer Breast Ductal In Situ Right Procedures Prior Auth Rad Tx [place] RADTN TX DEL >=1 MEV COMPLEX 3D Radha Elena M.D. [address] [place] [address] [facility] Referral ID Status Reason Start Date Expiration Date V isits Requested Visits Authorized [id number] Authorized 10/10/2023 10/04/2024 19 19 Encounter Details Date Type Department Care Team (Latest Contact Info) Description 11/13/2023 9:01 AM [facility] Hospital Encounter Department of Radiation Oncology in [place], [place] [address] [place] [phone] Radha Elena M.D. [address] [place] [address] Discharge Disposition: Home or Self Care Social [...]
--- OUTSIDE RECORDS SUMMARY | 2024-02-01 14:47 | XMS_ITS | Encounter Summary ---
Author Name Unknown Organization [facility] Address [address] [place] [address] Care Team Providers Care Mult Au Matic Operator Name Role Phone Unavailable Primary Care Provider Unavailabl e Reason for Referral * Radiation Therapy (Routine) - Authorized Specialty Diagnoses / Procedures Referred By Anton cesar Referred To Contact Diagnoses Cancer Breast Ductal In Situ Right Procedures Management Visit Radha Elena M.D. [address] [place] [address] [facility] Region Referral ID Status Reason Start Date Expiration Date V isits Requested Visits Authorized [id number] Authorized 10/05/2023 10/04/2024 10 10 RVISOR PASTE PLANT Reason for Visit * Radiation Therapy (Routine) - Authorized Specialty Diagnoses / Procedures Referred By Anton cesar Referred To Contact Diagnoses Cancer Breast Ductal In Situ Right Procedures Management Visit Radha Elena M.D. [address] [place] [address] [facility] Region Referral ID Status Reason Start Date Expiration Date V isits Requested Visits Authorized [id number] Authorized 10/05/2023 10/04/2024 10 10 Encounter Details Date Type Department Care Team (Latest Contact Info) Description 10/29/2023 12:45 PM SUPERVISOR PASTE PLANT - 10/29/2023 1:26 PM SUPERVISOR PASTE PLANT Hospital Encounter Department of Radiation Oncology in [place], [place] [address] [place] [phone] Radha Elena M.D. [address] [place] [address] Cancer Breast Ductal In Situ Right Social [...] (163 lb 9.6 oz) 10/29/2023 12:49 PM SUPERVISOR PASTE PLANT Height - - Body Mass Index - [...] by: Radha Elena M.D. 10/29/2023 1:15 PM SUPERVISOR PASTE PLANT RVISOR PASTE PLANT documented in this encounter Plan of Treatment Scheduled Orders Name Type Priority Associated Diagnoses Orde r Schedule Management Visit Radiation Oncology Routine Cancer Breast Ductal In Situ Right Once for 1 Occurrences starting 10/29/2023 until 10/29/2023 documented as of this encounter Visit Diagnoses Diagnosis Cancer Breast Ductal In Situ Right documented in this encounter
--- NOTE | 2024-02-01 15:00 | US_ITS ---
Patient: VERONICA DOWNS Facility:?[facility]IS Patient ID:?[id number] Site Patient ID:?[id number]. Site :?[id number] Study:?US-Pelvis PELVIS TA & TV-02/01/2024 3:30:47 PM Ordering Physician:DAVIDA STEPHENS PA-C Final Report: INDICATION: Abnormal uterine bleeding. TECHNIQUE: Ultrasound pelvis transabdominal and transvaginal for better assessment or to better visualize the endometrium. COMPARISON: None. FINDINGS: Uterus: 8 x 5 x 4 cm. Normal echotexture of the myometrium. No masses. Endometrium: Transvaginal imaging was performed to better evaluate the endometrium. Endometrial thickness measures 7 mm. No sign of endometrial mass or fluid. Right ovary 3 x 2 x 2 cm. No ovarian or adnexal masses. Left ovary 3 x 2 x 2 cm. No ovarian or adnexal masses. Cul-de-sac: No significant free fluid. IMPRESSION: Normal pelvic ultrasound. No finding to explain abnormal uterine bleeding. Dictated by Kendell Patel MD @ 02/03/2024 12:37:12 PM Signed by:?Kendell Patel MD @02/03/2024 12:37:12 PM (Electronic Signature)
== END 2024-02-01 14:45 | disposition home or self-care (01) ==
LOC: US 14:44
PROVIDERS: PCP Family Medicine; Visit Provider Physician Assistant
DX: N93.9 Abnormal uterine and vaginal bleeding, unspecified (principal)
CPT/HCPCS: 76830; 76856

== ENCOUNTER 2024-06-10 12:36 | Outpatient (CLI) | payer BC, SELFPAY ==
--- OUTSIDE RECORDS SUMMARY | 2024-06-10 12:41 | XMS_ITS ---
Author Organization [facility] Address [address] [place] [address] Care Team Providers Care Outpatient Phlebotomist Name Role Phone Unavailable Unavailable Unavailable Surgery Details Not on file Complications Check Surgery Details section. Procedure Estimated Blood Loss Check Surgery Details section. Procedure Findings Check Surgery Details section. Procedure Specimens Taken Check Surgery Details section.
--- OUTSIDE RECORDS SUMMARY | 2024-06-10 12:41 | XMS_ITS ---
Author Organization [facility] Address [address] [place] [address] Care Team Providers Care Wet Pour Mixer Name Role Phone Unavailable Primary Care Provider Unavailabl e Active Problems Problem Noted Date Diagnosed Date Cancer Breast Ductal In Situ Right 09/20/2023 Cancer Staging:Pathologic stage from 09/14/2023:Stage 0(pTis (DCIS), cN0, cM0, G1, ER+, [place]: Unknown, HER2: Unknown) - Unsigned Current Oncology Plans No current plan information found. Past Plans No past plan information found. Radiation Treatments * Plan Last Treated On Elapsed Days Fractions Treated Prescribed Fraction Dose Prescribed Total Dose [id number] 11/16/2023 18 15 of 15 320 cGy 4,800 cGy Reference Point Last Treated On Elapsed Days Session Dose Total Dose [id number] 11/16/2023 18 320 cGy 4,800 cGy
--- OUTSIDE RECORDS SUMMARY | 2024-06-10 12:41 | XMS_ITS | Clinical Summary ---
Author Organization [facility] Address [place], [place] [address] Care Team Providers Care Angle Roll Operator Name Role Phone Pcp, No Primary Care [...] Comments Blood Pressure 110/64 11/20/2015 1:10 PM TOPLINE BEADING MACHINE TENDER Pulse 60 11/20/2015 1:10 PM TOPLINE BEADING MACHINE TENDER Temperature 36.9 ??C (98.4 ??F) 11/20/2015 1:10 PM CS T Respiratory Rate - - Oxygen Saturation - - Inhaled Oxygen Concentration - - Weight 85.3 kg (188 lb) 11/20/2015 1:10 PM TOPLINE BEADING MACHINE TENDER Height - - Body Mass Index - - Plan of Treatment Health Maintenance Due Date Last Done Comments Tdap 1992 Depression screening for age 12+ 1993 HIV for age 15-65 1996 BMI (ht and wt on same day) for age 18+ 1999 Hepatitis C screening for age 18-79 1999 Tetanus booster 2001 COVID-19 vaccine series (2022- season) 2024 Influenza for age 9-49 05/18/2024 Pap test for age 21-65 03/13/2026 , 03/13/2023, 04/05/2016, Additional history exists Pneumococcal series for age 6-64 Aged Out No longer eligible based on patient's age to complete this topic Procedures Procedure Name Priority Date/Time Associated Diagnosis Comments HPV HIGH RISK Routine 03/13/2023 12:00 PM CDT from Last 3 Months or Most Recently Relevant to Health Maintenance Results * HPV HIGH RISK (03/13/2023 12:00 PM CDT) TYPE 16 Negative Negative 03/22/2023 5:17 PM CDT [facility] TYPE 18 Negative Negative 03/22/2023 5:17 PM CDT [facility] OTHER HIGH RISK TYPES Negative Negative 03/22/2023 5:17 PM CDT [facility] TRA [facility]ORAT[facility] Other (Cervical) 03/13/2023 12:00 PM CDT 03/19/2023 12:21 PM CDT Narrative [facility] - 03/22/2023 5:17 PM CDT HPV types 16, 18, 31, 33, 35, 39, 45, 51, 52, 56, 58, 59, 66 and 68 DNA were undetectable or below the pre-set threshold. Methodology: Lyudmila Stef 4800 HPV Test December Fozia AWAN MICROBIOLOGY [facility] [address] [place] [address], from Last 3 Months or Most Recently Relevant to Health Maintenance Care Teams Angle Roll Operator Relationship Specialty Start Date End Date Pcp, No . PCP - General 11/20/15
--- OUTSIDE RECORDS SUMMARY | 2024-06-10 12:41 | XMS_ITS | Clinical Summary ---
Author Organization [facility] Address [address] [place] [address] Care Team Providers Care Yield Improvement Engineer Name Role Phone Unavailable Primary Care Provider Unavailabl e Source Comments Patient records contain information from all sites at [facility]. For routine questions regarding patient records, call [phone] during business hours, M-F 8:00 AM - 5:00 PM Central Time. Record requests for emergency care only can be directed to [phone] at any time.[facility] Allergies No known active allergies [...] 09/14/2023:Stage 0(pTis (DCIS), cN0, cM0, G1, ER+, [place]: Unknown, HER2: Unknown) - Unsigned Immunizations Name [...] Comments Blood Pressure 118/58 10/22/2023 8:54 AM BACK GRINDER Pulse 71 10/22/2023 8:54 AM BACK GRINDER Temperature 36.7 ??C (98.1 ??F) 11/13/2023 9:29 AM CS T Respiratory Rate - - Oxygen Saturation - - Inhaled Oxygen Concentration - - Weight 72.6 kg (160 lb 0.9 oz) 11/13/2023 9:29 A M BACK GRINDER Height - - Body Mass Index - [...] 2) 2000 Cervical Cancer Screening 04/05/2019 04/05/2016 Depression Screening (Annual PHQ-2) 09/17/2023 Influenza Vaccine (#1) 2024 07/12/2015, 2012 Mammogram 09/14/2024 09/14/2023, 12/05/2023, 08/01/2023, Additional history exists DTaP,Tdap,and Td Vaccines (4 - Td or Tdap) 01/25/2026 01/26/2016, 12/16/2013, 04/10/2009, Additional history exists HPV Vaccines Aged Out No longer eligi ble based on patient's age to complete this topic Procedures Procedure Name Priority Date/Time Associated Diagnosis Comments OUTSIDE MG MAMMOGRAM Routine 09/14/2023 12:55 PM BACK GRINDER from Last 3 Months or Most Recently Relevant to Health Maintenance Results * MM surgical specimen RT-Outside Mammogram (09/14/2023 12:55 PM BACK GRINDER) Narrative [facility] - 09/19/2023 2:27 PM BACK GRINDER This order has been created and auto-finalized [...]
--- OUTSIDE RECORDS SUMMARY | 2024-06-10 12:41 | XMS_ITS | Referral Summary ---
Author Organization [facility] Address [address] [place] [address] Care Team Providers Care Queen Producer Name Role Phone Unavailable Primary Care Provider Unavailabl e Source Comments Patient records contain information from all sites at [facility]. For routine questions regarding patient records, call [phone] during business hours, M-F 8:00 AM - 5:00 PM Central Time. Record requests for emergency care only can be directed to [phone] at any time.[facility] Allergies No known active allergies Medications Medication Sig Dispensed Refills Start Date End Date Status mometasone (ELOCON) 0.1 % ointment Apply 1 Application topically 2 (two) times a day. Apply to right breast. 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 Staging:Pathologic stage from 09/14/2023:Stage 0(pTis (DCIS), cN0, cM0, G1, ER+, [place]: Unknown, HER2: Unknown) - Unsigned Immunizations Name [...] Comments Blood Pressure 118/58 10/22/2023 8:54 AM ACTIVITIES VOLUNTEER Pulse 71 10/22/2023 8:54 AM ACTIVITIES VOLUNTEER Temperature 36.7 ??C (98.1 ??F) 11/13/2023 9:29 AM CS T Respiratory Rate - - Oxygen Saturation - - Inhaled Oxygen Concentration - - Weight 72.6 kg (160 lb 0.9 oz) 11/13/2023 9:29 A M ACTIVITIES VOLUNTEER Height - - Body Mass Index - - Plan of Treatment Not on file Procedures Procedure Name Priority Date/Time Associated Diagnosis Comments OUTSIDE MG MAMMOGRAM Routine 09/14/2023 12:55 PM ACTIVITIES VOLUNTEER from Last 3 Months or Most Recently Relevant to Health Maintenance Results * MM surgical specimen RT-Outside Mammogram (09/14/2023 12:55 PM ACTIVITIES VOLUNTEER) Narrative IIMS - 09/19/2023 2:27 PM ACTIVITIES VOLUNTEER This order has been created and auto-finalized [...] or Most Recently Relevant to Health Maintenance [id number] [facility] [place] [id number]
--- NOTE | 2024-06-10 13:00 | CRLHL7_ITS ---
For Patients: As a result of the Century Cures Act, medical imaging exams and procedure reports are released immediately into your electronic medical record. You may view this report before your referring provider. If you have questions, please contact your health care provider. INDICATION: Right chest wall, rib pain, history of breast cancer TECHNIQUE: CT chest with 100 cc Omnipaque 350 IV contrast. COMPARISON: MR breast 10/10/2023 FINDINGS: Lungs and pleura: No suspicious nodules or infiltrates. No pleural effusions, pleural thickening, or pneumothorax. Heart and vasculature: Heart size is normal. Thoracic aorta and pulmonary artery are normal in caliber. Lymph nodes/mediastinum: No mediastinal, hilar, or axillary adenopathy. Chest wall: Postsurgical changes in the right breast. Upper abdomen: Normal. Bones: Unremarkable for age. IMPRESSION: No findings to explain symptoms. Postsurgical changes in the right breast Of note, CT is not sensitive for osseous metastatic lesions. If there is high clinical suspicion for osseous metastatic lesion, other modalities, such as nuclear medicine bone scan can be considered. Please note that all CT scans at this facility use dose modulation, iterative reconstruction, and/or weight-based dosing when appropriate to reduce radiation dose to as low as reasonably achievable. Dictated by Aubrie García MD @ 06/11/2024 2:30:12 PM (Electronically Signed)
== END 2024-06-10 12:37 | disposition home or self-care (01) ==
LOC: CT 12:39
PROVIDERS: PCP Family Medicine; Visit Provider Physician Assistant
DX: R07.81 Pleurodynia (principal); N64.4 Mastodynia; D05.11 Intraductal carcinoma in situ of right breast
CPT/HCPCS: 71260; Q9967

== ENCOUNTER 2024-06-23 08:35 | Outpatient (CLI) | payer BC, SELFPAY ==
--- OUTSIDE RECORDS SUMMARY | 2024-06-23 08:38 | XMS_ITS | Clinical Summary ---
Author Organization [facility] Address [address] [place] [address] Care Team Providers Care Copy Technician Name Role Phone Unavailable Primary Care Provider Unavailabl e Source Comments Patient records contain information from all sites at [facility]. For routine questions regarding patient records, call [phone] during business hours, M-F 8:00 AM - 5:00 PM Central Time. Record requests for emergency care only can be directed to [phone] at any time.[facility] Allergies No known active allergies Medications Medication Sig Dispensed Refills Start Date End Date Status mometasone (ELOCON) 0.1 % ointment Apply 1 Application topically 2 (two) times a day. Apply to right breast. 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 Staging:Pathologic stage from 09/14/2023:Stage 0(pTis (DCIS), cN0, cM0, G1, ER+, [place]: Unknown, HER2: Unknown) - Unsigned Immunizations Name [...] Comments Blood Pressure 118/58 10/22/2023 8:54 AM STATISTICAL CONSULTANT Pulse 71 10/22/2023 8:54 AM STATISTICAL CONSULTANT Temperature 36.7 ??C (98.1 ??F) 11/13/2023 9:29 AM CS T Respiratory Rate - - Oxygen Saturation - - Inhaled Oxygen Concentration - - Weight 72.6 kg (160 lb 0.9 oz) 11/13/2023 9:29 A M STATISTICAL CONSULTANT Height - - Body Mass Index - [...] OUTSIDE MG MAMMOGRAM Routine 09/14/2023 12:55 PM STATISTICAL CONSULTANT from Last 3 Months or Most Recently Relevant to Health Maintenance Results * MM surgical specimen RT-Outside Mammogram (09/14/2023 12:55 PM STATISTICAL CONSULTANT) Narrative IIMS - 09/19/2023 2:27 PM STATISTICAL CONSULTANT This order has been created and auto-finalized [...]
--- OUTSIDE RECORDS SUMMARY | 2024-06-23 08:39 | XMS_ITS ---
Author Organization [facility] Address [address] [place] [address] Care Team Providers Care Strap Sewer Name Role Phone Unavailable Primary Care Provider [...] Treated Prescribed Fraction Dose Prescribed Total Dose [id number] 11/16/2023 18 15 of 15 320 cGy 4,800 cGy Reference Point Last Treated On Elapsed Days Session Dose Total Dose [id number] 11/16/2023 18 320 cGy 4,800 cGy
--- OUTSIDE RECORDS SUMMARY | 2024-06-23 08:39 | XMS_ITS ---
Author Organization [facility] Address [address] [place] [address] Care Team Providers Care It Sales Consultant Name Role Phone Unavailable Unavailable Unavailable Surgery Details Not on file Complications Check Surgery Details section. Procedure Estimated Blood Loss Check Surgery Details section. Procedure Findings Check Surgery Details section. Procedure Specimens Taken Check Surgery Details section.
--- OUTSIDE RECORDS SUMMARY | 2024-06-23 08:39 | XMS_ITS | Clinical Summary ---
Author Organization [facility] Address [place], [place] [address] Care Team Providers Care Cleaner Name Role Phone Pcp, No Primary Care [...] Comments Blood Pressure 110/64 11/20/2015 1:10 PM DATABASE SECURITY EXPERT Pulse 60 11/20/2015 1:10 PM DATABASE SECURITY EXPERT Temperature 36.9 ??C (98.4 ??F) 11/20/2015 1:10 PM CS T Respiratory Rate - - Oxygen Saturation - - Inhaled Oxygen Concentration - - Weight 85.3 kg (188 lb) 11/20/2015 1:10 PM DATABASE SECURITY EXPERT Height - - Body Mass Index - - Plan of Treatment Health Maintenance Due Date Last Done Comments Tdap 1992 Depression screening for age 12+ 1993 HIV for age 15-65 1996 BMI (ht and wt on same day) for age 18+ 1999 Hepatitis C screening for age 18-79 1999 Tetanus booster 2001 COVID-19 vaccine series (2023- season) 2024 Influenza for age 9-49 05/18/2024 [...] 16 Negative Negative 03/22/2023 5:17 PM CDT [facility] TRAL [facility] TYPE 18 Negative Negative 03/22/2023 5:17 PM CDT [facility] TRAL LABORATORY OTHER HIGH RISK TYPES Negative Negative 03/22/2023 5:17 PM CDT [facility] TRA LABORATORY Other (Cervical) 03/13/2023 12:00 PM [...] [facility] LAB[facility] [address] [place] [address], from Last 3 Months or Most Recently Relevant to Health Maintenance Care Teams Cleaner Relationship Specialty Start Date End Date Pcp, No . PCP - General 11/20/15
--- OUTSIDE RECORDS SUMMARY | 2024-06-23 08:39 | XMS_ITS | Referral Summary ---
Author Organization [facility] Address [address] [place] [address] Care Team Providers Care Correctional Case Manager Name Role Phone Unavailable Primary Care Provider Unavailabl e Source Comments Patient records contain information from all sites at [facility]. For routine questions regarding patient records, call [phone] during business hours, M-F 8:00 AM - 5:00 PM Central Time. Record requests for emergency care only can be directed to [phone] at any time.[facility] Allergies No known active allergies [...] 09/14/2023:Stage 0(pTis (DCIS), cN0, cM0, G1, ER+, [place]: Unknown, HER2: Unknown) - Unsigned Immunizations Name [...] Comments Blood Pressure 118/58 10/22/2023 8:54 AM DISCHARGE SPECIALIST Pulse 71 10/22/2023 8:54 AM DISCHARGE SPECIALIST Temperature 36.7 ??C (98.1 ??F) 11/13/2023 9:29 AM CS T Respiratory Rate - - Oxygen Saturation - - Inhaled Oxygen Concentration - - Weight 72.6 kg (160 lb 0.9 oz) 11/13/2023 9:29 A M DISCHARGE SPECIALIST Height - - Body Mass Index - - Plan of Treatment Not on file Procedures Procedure Name Priority Date/Time Associated Diagnosis Comments OUTSIDE MG MAMMOGRAM Routine 09/14/2023 12:55 PM DISCHARGE SPECIALIST from Last 3 Months or Most Recently Relevant to Health Maintenance Results * MM surgical specimen RT-Outside Mammogram (09/14/2023 12:55 PM DISCHARGE SPECIALIST) Narrative IIMS - 09/19/2023 2:27 PM DISCHARGE SPECIALIST This order has been created and auto-finalized [...] or Most Recently Relevant to Health Maintenance [id number] [facility] [place] [id number]
--- NOTE | 2024-06-23 08:45 | CRLHL7_ITS ---
For Patients: As a result of the Cures Act, medical imaging exams and procedure reports are released immediately into your electronic medical record. You may view this report before your referring provider. If you have questions, please contact your health care provider. DIGITAL DIAGNOSTIC BILATERAL MAMMOGRAM USING TOMOSYNTHESIS AND COMPUTER-AIDED DETECTION RIGHT BREAST ULTRASOUND CLINICAL HISTORY: RIGHT breast pain. COMPARISON: 08/05/23, 07/05/23, 09/20/21. TECHNIQUE: Digital BILATERAL mammogram in four projections with computer-aided detection. Tomosynthesis was used in this interpretation. Real-time ultrasound imaging of RIGHT breast with imaging documentation. BREAST COMPOSITION: There are scattered areas of fibroglandular density. FINDINGS: 3D CC/MLO BILATERAL mammogram images submitted. Posttreatment changes RIGHT breast including lumpectomy and XRT. No suspicious mass or adenopathy. No suspicious calcifications. Targeted RIGHT breast ultrasound performed in the area of concern 6 through 9 o`clock 5-9 cm from the nipple. No suspicious findings. Scar tissue noted. No fluid collection. IMPRESSION: Benign scar tissue RIGHT breast. No suspicious findings. RECOMMENDATIONS: Routine screening mammography. Physical therapy could be considered for further treatment of the scar tissue resulting in pain. Results and recommendations discussed with the patient. BI-RADS Category 2: Benign A lay language report of this examination will be provided to the patient. Dictated by Mike Frias MD @ 06/23/2024 9:44:14 AM /Dictated by: Mike Frias MD @ 06/23/2024 9:44:00 AM (Electronically Signed)
--- NOTE | 2024-06-23 09:15 | CRLHL7_ITS ---
For Patients: As a result of the Century Cures Act, medical imaging exams and procedure reports are released immediately into your electronic medical record. You may view this report before your referring provider. If you have questions, please contact your health care provider. PLEASE SEE BILATERAL DIAGNOSTIC MAMMOGRAM OF SAME DAY FOR COMBINED REPORT. CRL:raul RD/Dictated by: Mike Frias MD @ 06/23/2024 9:44:00 AM (Electronically Signed)
== END 2024-06-23 08:36 | disposition home or self-care (01) ==
LOC: MAMMO 08:36
PROVIDERS: PCP Internal Medicine Hematology & Oncology; Visit Provider Physician Assistant
DX: N64.4 Mastodynia (principal)
CPT/HCPCS: 76642; 77066; G0279

== ENCOUNTER 2024-06-24 11:01 | Outpatient (RCR) | payer BC, SELFPAY ==
--- NOTE | 2024-06-03 16:48 | ONC.NURNOTE ---
Received note from clinic regarding patient having breast pain and oncologist recommendations. Hot Man talked with Dr. Harry and she recommends Diagnostic mammogram and Ct of chest with contrast. Patient can make an earlier follow up in oncology to discuss results. Was due in June for follow up
== END 2024-12-21 23:59 | disposition home or self-care (01) ==
LOC: CCIC 11:01
PROVIDERS: PCP Family Medicine; Visit Provider Internal Medicine Hematology & Oncology
DX: D05.11 Intraductal carcinoma in situ of right breast (principal); Z17.0 Estrogen receptor positive status [ER+]
CPT/HCPCS: 99214; G0463

== ENCOUNTER 2024-11-10 08:52 | Outpatient (CLI) | payer BC, SELFPAY | END 2024-11-10 08:53 | disposition home or self-care (01) | PROVIDERS: PCP Family Medicine; Visit Provider Internal Medicine Hematology & Oncology | DX: Z12.39 Encounter for other screening for malignant neoplasm of breast (principal); Z85.3 Personal history of malignant neoplasm of breast | CPT/HCPCS: 77049; A9575 ==

== ENCOUNTER 2025-06-23 09:05 | Outpatient (CLI) | payer BC, SELFPAY ==
--- NOTE | 2025-06-23 09:15 | CRLHL7_ITS ---
For Patients: As a result of the Century Cures Act, medical imaging exams and procedure reports are released immediately into your electronic medical record. You may view this report before your referring provider. If you have questions, please contact your health care provider. INDICATION: BILATERAL SCREENING MAMMOGRAM, ASYMPTOMATIC 44 Y/O FEMALE COMPARISON: 06/23/2024, 07/18/2023, 07/05/2023 TECHNIQUE: Digital mammogram in CC and MLO projections including computer-aided detection (CAD) and tomosynthesis. BREAST COMPOSITION: The breasts are heterogeneously dense, which may obscure small masses. FINDINGS: No suspicious findings. ASSESSMENT: BI-RADS 1 Negative RECOMMENDATION: Annual screening mammogram. A lay language report of this examination will be provided to the patient. Dictated by: Mike Frias MD @ 06/23/2025 10:29:00 (Electronically Signed)
== END 2025-06-23 09:06 | disposition home or self-care (01) ==
LOC: MAMMO 09:06
PROVIDERS: PCP Family Medicine; Visit Provider Internal Medicine Hematology & Oncology
DX: Z12.31 Encounter for screening mammogram for malignant neoplasm of breast (principal); R92.333 Mammographic heterogeneous density, bilateral breasts
CPT/HCPCS: 77063; 77067